=== PATIENT | female | born 1955 | race Caucasian/White ===

== ENCOUNTER 2018-03-19 02:19 | Outpatient (CLI) | payer BC, SELFPAY ==
--- NOTE | 2018-03-19 15:30 | DI.MAMMO_ITS ---
SYMPTOM/DIAGNOSIS: SCREENING, Z12.31 MAMMOGRAMS: Mammograms were interpreted according to the usual protocol including computer analysis with CAD system, tomosynthesis and C view imaging. Comparison is made with prior examinations. Breast density, category B. No suspicious masses or microcalcifications are seen. There is no definite evidence of malignancy. IMPRESSION: Negative mammogram. Routine screening is recommended. Category 1. MQSA ASSESSMENT OF FINDINGS: Negative. Category 1. Patient will receive a letter notifying them of these results. BI-RADS category B. There are scattered areas of fibroglandular density.
== END 2018-03-19 02:39 ==
PROVIDERS: PCP Family Medicine; Visit Provider Nurse Practitioner Family
DX: Z12.31 Encounter for screening mammogram for malignant neoplasm of breast (principal)
CPT/HCPCS: 77063; 77067

== ENCOUNTER 2018-06-04 10:01 | Day surgery (SDC) | payer BC, SELFPAY ==
--- NOTE | 2018-06-04 07:03 | W.COLOREPORT ---
Date of service: 06/04/18 Time of Service: 10:53 Colonoscopy Report Date of procedure: 06/04/18 Pre-op diagnosis general: Hx of colon Polyps Post-op diagnosis procedure note: other (ascending colon polyp) Procedure: Colonoscopy with polypectomy by cold forceps Surgeon: Demetra Perla Anesthesia proc note operative: other (General/ ASA 2/Rajiv Deluca, VANNESA) Estimated blood loss (mL): 3 Complications: None Disposition: same day Indications: Mrs. Weaver is a pleasant 63-year-old female who was seen in the office for a colonoscopy. 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 There is no family history of colon cancer. Risks, benefits and complications have been reviewed. Complications include but are not limited to bleeding, pain, perforation, missed small lesion/polyp, sore throat, aspiration and adverse reaction to the medications. Questions were entertained and answered to their satisfaction and they wished to proceed. No guarantees were given or implied. Prep: Miralax/Dulcolax Procedure Start Time: 10:53 Procedure End Time: 11:25 Retraction Time: 24 minutes Findings: Small sessile polyp <0.5 cm in the ascending colon Tattooed area noted. No polyp identified Procedure Description: After informed consent was obtained the patient was taken to the procedure room and placed in a left decubitous position. Monitors were applied and a time out was done. The patients name, date of , procedure, allergies to medications and metal in their body was reviewed. The patient was then sedated. Once sedated and comfortable a rectal exam was done. External exam was normal. Internal exam revealed a normal sphincter tone and no palpable masses. The scope was then introduced and retro-flexed. No internal hemorrhoids were identified. The scope was then advanced to the cecum without difficulty. The TI and appendiceal orifice were identified. The prep was good. The scope was then slowly retracted over 24 minutes back into the rectum. Polyps were removed in the ascending colon with cold forceps. The scope was removed and the patient was woken up and taken back to Same day surgery in stable condition. The patient tolerated the procedure well and there were no immediate complications. Follow up: The patient should follow up in 5 years unless they develop changes in bowel habits or other new gastrointestinal complaints.
--- NOTE | 2018-06-04 07:06 | W.PM.DSUDISC ---
Discharge Plan Disposition Patient Disposition: HOME Condition: Good Discharge Details Reason For Visit: Hx of polyps/ Colon Cancer screening Attending Provider: Demetra Perla Primary Care Provider: Charlie Graham Home Meds and New Rx's Prescriptions: Continued estradiol [Vagifem] 10 mcg tablet 10 mcg VG twice weekly Qty: 25 RF: 4 Discontinued polyethylene glycol 3350 17 gram/dose powder 238 g PO ONCE Qty: 238 RF: 0 bisacodyl [Dulcolax (bisacodyl)] 5 mg tablet,delayed release (DR/EC) 5 mg PO ONCE Qty: 4 RF: 0 Discharge Instructions Instructions: Colonoscopy (DC), Colorectal Polyps (DC) Additional Instructions: Findings: small ascending colon polyp Follow up: 5 years Please call if you develop: fevers >101.5 Nausea or Vomiting Abdominal pain that is not transient DAY SURGERY UNIT POST COLONOSCOPY INSTRUCTIONS 1. Because there will be medication in your system for the next 24 hours, you may feel a little sleepy. Your coordination will be affected. Therefore: a. Do not drive or operate dangerous equipment for 24 hours. b. Do not drink alcohol beverages for 24 hours (not even beer). c. Plan to go home and rest for the day. 2. Generally there are no restrictions on your activity after a day or so has gone by, but you may feel a bit fatigued for a few days. 3 After you arrive home you may have a light meal and return to a normal diet as you can tolerate it without feeling sick to your stomach. 4. After surgery, you may feel pain or discomfort. This should be only transient, but if it persists please contact your doctor. 5. If there are any questions regarding the findings of your procedure, please feel free to contact your doctor. 6. If you are unable to contact your doctor with a problem, contact the hospital at [phone]. 7. Continue all your regular medications unless directed otherwise. I understand the above instructions and have no questions. Signature of Patient or Responsible Adult Escort Date/Time Name of Responsible Adult Escort Signature of Nurse Date/Time Activity:: Activity as Tolerated Diet:: As Tolerated Discharge Orders Discharge Orders: Discharge Order (Routine); Ordered 06/04/18 Ordered By: Demetra Perla DS: Diagnosis Discharge Diagnosis (1) tubulovillous adenoma: Status: Acute (2) S/P colonoscopy: Status: Acute
[2018-06-04 10:14] VITALS: BP 127/87; PULSE 81; RESP 16; TEMP 35.9; O2SAT 97
[2018-06-04] MEDS: Lactated Ringers 1,000 ML 80 ML IV (10:44)
--- NOTE | 2018-06-04 11:05 | BOWEL_PTH ---
PATIENT: Zhanna Weaver LOC: [facility] U#:[id number] AGE/SX: 63/F ROOM: RE06/04/[address]: Demetra Perla MD : 1955 BED: DIS: 06/04/2018 SPEC #: [id number] RECD: 06/04/18 12:52 STATUS: MONALISA REQ #: [id number] CHELY: 06/04/18 11:[address]: Demetra Perla DEPT: Surgical Specimen RECD BY: Maryjane Fulton ENTERED: 06/04/18 12:52 SP TYPE: Bowel OTHR DR: Charlie Graham MD Tissues: 1 - BIOPSY BOWEL Procedures: GROSS AND MICRO LEVEL 4 Comments: [id number]
[2018-06-04 12:10] VITALS: BP 110/76; PULSE 71; RESP 16; TEMP 35.1; O2SAT 98
== END 2018-06-04 13:00 | disposition home or self-care (01) ==
LOC: SUR 10:02
PROVIDERS: PCP Family Medicine; Visit Provider Surgery
PROC: 0DJD8ZZ Inspection of Lower Intestinal Tract, Via Natural or Artificial Opening Endoscopic (ICD-10-PCS; CPT 45378; principal; 2018-06-04 10:45)
DX: Z12.11 Encounter for screening for malignant neoplasm of colon (principal); D12.6 Benign neoplasm of colon, unspecified; Z86.010 Personal history of colon polyps
CPT/HCPCS: 45380; 88305

== ENCOUNTER 2019-06-24 01:08 | Outpatient (CLI) | payer BC, SELFPAY ==
--- NOTE | 2019-06-24 13:00 | DI.MAMMO_ITS ---
EXAM: MG MAMMO SCREENING CLINICAL HISTORY: screening,z12.39 TECHNIQUE: Bilateral full field digital CC and MLO mammographic images were obtained with 3D tomosyn thesis and utilizing computer aided detection (CAD). COMPARISON: Available for comparison. FINDINGS: Masses/Architectural Distortion: None seen. Microcalcifications: No suspicious pleomorphic-type are seen. Skin Thickening/Nipple Retraction: None. IMPRESSION: 1. No significant interval change with no specific features of malignancy noted. 2. Unless there is more urgent need, screening mammography is recommended, as per [employer] guidelines. BI-RADS Category 1 - Negative Breast Density - Category B - Scattered areas of fibroglandular density A negative radiographic report should not delay biopsy if a dominant or clinically suspicious mass is present. Up to ten percent of cancers are not identified on mammography. A negative report may reinforce clinical impression. Adenosis and dense breasts may obscure an underlying neoplasm. False positive reports average 6 to 10%. Patient will receive a letter notifying them of these results.
== END 2019-06-24 01:28 ==
PROVIDERS: PCP Family Medicine; Visit Provider Nurse Practitioner Family
DX: Z12.31 Encounter for screening mammogram for malignant neoplasm of breast (principal)
CPT/HCPCS: 77063; 77067

== ENCOUNTER 2020-01-20 03:41 | Outpatient (CLI) | payer BC, SELFPAY ==
[2020-01-20 12:43] LABS: Hemoglobin A1C 5.3 % (<5.7)
[2020-01-20 12:44] LABS: Calculated LDL 162 mg/dL (<100); Cholesterol 251 mg/dL (<200); HDL Cholesterol 79 mg/dL (40-60); Triglyceride 52 mg/dL (<150)
== END 2020-01-20 04:01 ==
PROVIDERS: PCP Nurse Practitioner Family; Visit Provider Nurse Practitioner Family
DX: Z13.220 Encounter for screening for lipoid disorders (principal); Z13.1 Encounter for screening for diabetes mellitus
CPT/HCPCS: 36415; 80061; 83036

== ENCOUNTER 2020-03-23 15:59 | Outpatient (REF) | payer BC, SELFPAY ==
--- NOTE | 2020-03-23 15:00 | PAPFT_PTH ---
PATIENT: Zhanna Weaver LOC: [facility] U#:[id number] AGE/SX: 64/F ROOM: RE03/23/[address]: JEREMY Montes : 1955 BED: DIS: 03/23/2020 SPEC #: [id number] RECD: 03/23/20 17:58 STATUS: MONALISA REQ #: [id number] CHELY: 03/23/20 15:[address]: Mary Grace Ji DEPT: [facility] Cytology RECD BY: Maryjane Fulton ENTERED: 03/23/20 17:58 SP TYPE: PAPFT ALICIA DR: Antolin Hutchins, JEFF Tissues: 1 - CX/ENDOCX FOR PAP SMEARS Procedures: PAP THIN PREP/UVM Screening HPV DNA PROBE Comments: [id number]
== END 2020-03-23 16:00 | disposition home or self-care (01) ==
LOC: LBN 15:59
PROVIDERS: PCP Nurse Practitioner Family; Visit Provider Nurse Practitioner Family
DX: Z12.4 Encounter for screening for malignant neoplasm of cervix (principal); Z11.51 Encounter for screening for human papillomavirus (HPV)
CPT/HCPCS: 88142; 87624

== ENCOUNTER 2020-05-08 03:59 | Outpatient (CLI) | payer BC, SELFPAY ==
--- NOTE | 2020-05-08 | DI.MRI_ITS ---
EXAM: MR IAC BRAIN WO/W CLINICAL HISTORY: H90.5,ASYMMETRICAL HEARING LOSS TECHNIQUE: MR examination of the brain was performed according to the usual protocol with additiona l multiplanar high-resolution pre and post contrast imaging the posterior fossa. Whole brain axial T 1 weighted imaging was also obtained post contrast. COMPARISON: No exams were available for comparison FINDINGS: The ventricular system is normal in appearance. There is no mass lesion or enhancing lesion in the b rain. No significant intracranial signal abnormality seen. Diffusion-weighted imaging shows no diffusion restriction to suggest cerebral infarction. Susceptibility weighted imaging shows no evidence of intracranial hemorrhage. The orbital and temporal bone structures appear intact. The pituitary appears intact. There is normal flow void in the hsefmq-dv-Fkvici vasculature. Imaging of the posterior fossa region shows no abnormality of the cerebellum or chan. The internal a uditory canals and inner and middle ear structures appear normal. There is no mass lesion or enhanci ng lesion. IMPRESSION: Negative brain MRI with attention to the posterior fossa structures as described above. No mass lesi on or enhancing lesion. RADIATION DOSE DELIVERED: Total DLP
[2020-05-08 13:55] LABS: CREATININE 0.6 mg/dL (0.55-1.02)
[2020-05-08] MEDS: Normal Saline Flush 10 ML SYR IVP (14:05)
[2020-05-08] MEDS: Gadoterate meglumine 20 ML VIAL 18 ML IVP (14:05)
== END 2020-05-08 04:19 ==
PROVIDERS: PCP Nurse Practitioner Family; Visit Provider Otolaryngology
DX: H91.91 Unspecified hearing loss, right ear (principal)
CPT/HCPCS: 70553; 82565

== ENCOUNTER 2020-06-25 01:55 | Outpatient (CLI) | payer BC, SELFPAY ==
--- NOTE | 2020-06-25 15:06 | DI.MAMMO_ITS ---
Exam(s) MAMMO SCREENING EXAM: MAMMO SCREENING CLINICAL HISTORY: screening, Z12.39. TECHNIQUE: Bilateral full field digital CC and MLO mammographic images were obtained with 3D tomosyn thesis and utilizing computer aided detection (CAD). COMPARISON: Prior mammograms dating back to 2011, the most recent being June 2019. FINDINGS: There are no new significant radiograph findings in the right breast. Benign microcalcifications posteriorly in left breast are unchanged prior studies. Anteriorly at 12 o'clock position left breast there is a well-defined slightly lobulated 7 by 4 margo meter nodular density best seen on 3D MLO imaging. This is unchanged from prior mammograms dating ba to 2015 and therefore most probably benign. There are no malignant-appearing microcalcification groups is region or elsewhere in either breast. There is no significant architectural distortion nor skin thickening-retraction. IMPRESSION: 1. No radiographic evidence of malignancy in the right breast. 2. Central 12 o'clock position benign-appearing nodule left breast as described above. Ultrasound re commended to determine if this is solid or cystic BI-RADS Category 0 - Assessment Incomplete: Need additional imaging evaluation Breast Density - Category B - Scattered areas of fibroglandular density Breast density Category C or D implies that the patient has dense breast tissue. Dense breast tissue can make it harder to find cancer on a mammogram. Dense breast tissue is also associated with an incr eased risk of breast cancer. This information about the result of the mammogram report was provided to the patient to raise their awareness. Use this report when you speak with the patient about their risks for breast cancer, which includes their family history. At that time, you may recommend additional screening tests (Ultrasoun d or MRI) as these tests may add significant information. A negative radiographic report should not delay biopsy if a dominant or clinically suspicious mass is present. Up to ten percent of cancers are not identified on mammography. A negative report may reinforce clinical impression. Adenosis and dense breasts may obscure an underlying neoplasm. False positive reports average 6 to 10%. Patient will receive a letter notifying them of these results.
== END 2020-06-25 02:15 ==
PROVIDERS: PCP Nurse Practitioner Family; Visit Provider Nurse Practitioner Family
DX: Z12.31 Encounter for screening mammogram for malignant neoplasm of breast (principal)
CPT/HCPCS: 77063; 77067

== ENCOUNTER 2020-11-30 01:01 | Outpatient (CLI) | payer BC, SELFPAY ==
[2020-11-30 12:51] LABS: Calculated LDL 172 mg/dL (<100); Cholesterol 251 mg/dL (<200); HDL Cholesterol 69 mg/dL (40-60); TSH 2.11 uIU/mL (0.36-3.74); Triglyceride 51 mg/dL (<150)
== END 2020-11-30 01:02 | disposition home or self-care (01) ==
PROVIDERS: PCP Nurse Practitioner Family; Visit Provider Nurse Practitioner Family
DX: Z13.220 Encounter for screening for lipoid disorders (principal); Z13.29 Encounter for screening for other suspected endocrine disorder
CPT/HCPCS: 36415; 80061; 84443

== ENCOUNTER 2021-05-15 12:26 | Emergency (ER) | payer BC, SELFPAY ==
[2021-05-15 12:31] VITALS: BP 141/79; PULSE 90; RESP 18; TEMP 36.5; O2SAT 96
--- NOTE | 2021-05-15 12:45 | DI.RAD_ITS ---
Exam(s) XR HAND RT COMPLETE EXAM: XR HAND RT COMPLETE CLINICAL HISTORY: Laceration with glass, base of pinky, R/O FB TECHNIQUE: COMPARISON: No exams were available for comparison FINDINGS: Three views were obtained. No evidence of fracture or foreign body. IMPRESSION: RADIATION DOSE DELIVERED: Total DLP
--- NOTE | 2021-05-15 12:49 | ED.GENADUL_ITS ---
Discharge Plan Disposition Patient Disposition: HOME Condition: Stable Discharge Details Clinical Impression: Laceration of hand, right Primary Care Provider: Antolin Hutchins ED Provider: Wanda Ybarra Home Meds and New Rx's Prescriptions: Continued Metamucil (with sugar) 3.4 gram powder in packet 1 tbsp PO DAILY 0RF estradiol [Vagifem] 10 mcg tablet 10 mcg VG twice weekly Qty: 25 4RF Discharge Instructions Instructions: Laceration (ED) Additional Instructions: Keep clean and dry. Leave alone for the next 12 to 24 hours. Allowed to air dry 1 to 2 hours a day. No soaking. You may apply bacitracin or similar for the first day. Have sutures removed in 5 to 7 days. Be seen sooner for any signs of infection including increased redness, red streaks, drainage or concerns. Please try not to flex finger completely for the first few days. The numbing medication will begin to wear off in 1 to 2 hours. Follow up with primary care provider in 3-5 days. Return to ED sooner if any worsening or concerns. Increase oral fluids. Please take Tylenol or Ibuprofen with food every 4-6 hours as needed for pain and swelling. Referrals: Antolin Hutchins, [employer] [Primary Care Provider] - 2 weeks Discharge Data Discharge Date/Time-TO BE ENTERED AT DEPARTURE: 05/15/21 14:15 Medical Decision Making 66-year-old female presents to the ER with left hand laceration approximately which occurred approximately an hour prior to arrival while taking a bowl out of the cabinet. She reports full prep broken to cutting the lateral side of her right pinky on a glass bowl. She has full range of motion to her digits. Flexion extension is intact. She reports she is up-to-date on her tetanus vaccination. Let will be applied and x-ray imaging performed to rule out foreign body. Wound was irrigated by staff prior to my examination. We will plan to repair with sutures. Laceration was anesthetized and infiltrated with 1% lidocaine, patient tolerated well. Gross motor movement intact post infiltration. Anesthesia was achieved. Laceration was repaired with four-point 0 Ethilon suture 4 simple interrupted sutures placed. Wound was well approximated. I did offer a finger splint which patient declined at this time. Discussed home care with patient and daughter who verbalized understanding. Instructed to have sutures removed in 5 to 7 days. Strict return instructions discussed, verbalized understanding. HPI General Date/Time Provider Initiated Documentation: 05/15/21 12:42 . Limitations to Documentation: no limitations . Information obtained by: patient, RN notes reviewed and old records reviewed . HPI Narrative: 56-year-old female presents to the ER with chief complaint of right hand laceration which occurred approximately 1/2 hour prior to arrival on a glass bowl. She has full range of motion noted on exam. Denies any other injuries. She reports she is up-to-date on tetanus vaccination. Bleeding is controlled upon arrival. No other associated symptoms. Past medical history includes polyp of colon, , colonoscopy, tubulovillous adenoma patient is not on any blood thinners. Related Data Home Medications Medication Instructions Recorded Confirmed estradiol 10 mcg vaginal tablet 10 mcg VG twice weekly #25 tab 03/16/18 05/15/21 (Vagifem) psyllium husk (with sugar) 3.4 1 tbsp PO DAILY 03/23/20 11/20/20 gram oral powder packet (Metamucil (with sugar)) Previous Rx's Medication Instructions Recorded estradiol 10 mcg vaginal tablet 10 mcg VG twice weekly #25 tab 03/16/18 (Vagifem) Allergies Allergy/AdvReac Type Severity Reaction Status Date / Time phenylephrine AdvReac Severe N/V Verified 05/15/21 12:34 pseudoephedrine AdvReac Intermediate N/V Verified 05/15/21 12:34 General Stated Complaint: Laceration SAMUEL: 4 Review of Systems All systems reviewed & are unremarkable except as noted in HPI and below Integumentary/Breasts Skin/Breast: Reports wounds (Laceration Right hand) [facility] All Active Problems (Updated 05/15/21 @ 14:02 by Wanda Ybarra) Laceration of hand, right (Acute) Asymmetrical sensorineural hearing loss (Acute) S/P colonoscopy (Acute ~06/04/18) 2012-Tubulovillous adenoma Atrophic vaginitis (Acute 03/15/11) Medical History Polyp of colon 04/15 COLONOSCOPY: ONE TUBULOVILLOUS ADENOMA AND TWO TUBULAR ADENOMAS. 11/10/10 COLONOSCOPY; 1 T.A. 12/05/12 AWAITING PATH REPORT tubulovillous adenoma Surgical History section Colonoscopy - MAC 12/05/12 Ligation of fallopian tube Oophrectomy, Both (~2002) [facility] for cystic ovarian masses Family History Mother Heart disease Smoker Chronic obstructive lung disease Father Personal history of malignant neoplasm bone Sister Smoker Chronic obstructive lung disease Sister No problems noted. Sister No problems noted. Sister No problems noted. Sister No problems noted. Brother Colon cancer Diabetes Brother No problems noted. Brother No problems noted. Brother No problems noted. Maternal Cousin Stomach cancer Social History Smoking/Tobacco Use Status: Never Second Hand Exposure: Yes Smoking risk assessment performed?: Yes Alcohol Intake: current Alcohol Intake frequency: a few times a week Alcohol type: beer, wine and hard liquor Drug use: Never Substance use type: does not use Do you feel safe at home: Yes Do you feel safe in your relationship?: Yes Exam Extrem Right upper extremity: hand Details: normal capillary refill, neuromotor exam normal, neurosensory exam normal, tendon exam normal, normal ROM of fingers and laceration ulnar aspect mid Details: irregular, flap, actively bleeding (Slow venous ooze, controlled with pressure), involving subcutaneous tissue and with motor nerve function intact; Negative for no pulsatile bleeding Hand/finger images: 1. Approximately 1 cm irregular laceration with a flap noted 2. Small superficial no bleeding noted. Course Vital Signs Vital signs: Vital Signs Temperature 36.5 C 05/15/21 12:31 Pulse 90 05/15/21 12:31 Respiratory Rate 18 05/15/21 12:31 Blood Pressure 141/79 H 05/15/21 12:31 Pulse Oximetry 96 05/15/21 12:31 Temperature 36.5 C 05/15/21 12:31 Temperature Source Temporal Artery Scan 05/15/21 12:31 Pulse 90 05/15/21 12:31 Respiratory Rate 18 05/15/21 12:31 Respiratory Effort Non-Labored 05/15/21 12:35 Blood Pressure 141/79 H 05/15/21 12:31 Blood Pressure Position Sitting 05/15/21 12:31 Pulse Oximetry 96 05/15/21 12:31 Oxygen Delivery Method Room Air 05/15/21 12:31 Oxygen Flow Rate 0 04/09/22 12:31 Procedures Laceration Laceration 1: Site: hand Side (If applicable): right Size (cm): 1.5 Description: flap, irregular and clean Depth: simple, single layer Local Anesthetic: Lidocaine 1% and with Epi Amount of anesthesia used (mL): 2 Pre-repair: wound explored, irrigated extensively and deep structures intact Skin layer closed with: nylon Size (cm): 4-0 Number of sutures: 4 Technique: simple, interrupted PAWSS Have you Been Recently Intoxicated or Drunk Within the Last 30 days?: No Have you Ever Experienced Previous Episodes of Alcohol Withdrawal?: No Have you ever Experienced Withdrawal Seizures?: No Have you ever Experienced Delirium Tremens(DT)s?: No Have you ever undergone Alcohol Rehabilitation Treatment (i.e, inpt ot outpatient treatment programs)?: No Have you ever Experienced Blackouts?: No Have you ever Combined Alcohol with other Downers within the last 90 days?: No Have you ever Combined Alcohol with any other Substance of Abuse during the last 90 days?: No Positive Blood Alcohol level on Presentation? [PCS.BAL]: No Evidence of Increased Autonomic Activity (i.e. HR>120, tremor, sweating, agitation, nausea)?: No Result: 0
[2021-05-15] MEDS: Lidocaine/Epinephri/Tetracaine Topical Gel 3 ML TP (13:07)
--- NOTE | 2021-05-15 13:45 | DI.VRAD_ITS ---
PROCEDURE INFORMATION: Exam: XR Right Hand Exam date and time: 05/15/2021 1:14 PM Age: 66 years old Clinical indication: Injury or trauma; Other: Laceration with glass, base of pinky, R/O fb; Hand; Right TECHNIQUE: Imaging protocol: XR Right hand. Views: 3 or more views. COMPARISON: No relevant prior studies available. FINDINGS: Bones/joints: There is no evidence of acute fracture.There is no evidence of malalignment or dislocation. Soft tissues: No foreign body seen in the soft tissues . IMPRESSION: 1. No foreign body seen in the soft tissues . 2. There is no evidence of acute fracture.There is no evidence of malalignment or dislocation. Dictated and Authenticated by: Arvin Montesinos MD. Ordering:MELLO Muñoz MD
--- NOTE | 2021-05-15 14:16 | NUR.NOTE ---
dry dressing application. Laceration site cleaned, Bacitracin, telfa dressing and wrapped with curlex, CLB.
== END 2021-05-15 14:15 | disposition home or self-care (01) ==
PROVIDERS: Emergency Provider Registered Nurse Emergency; PCP Nurse Practitioner Family
DX: S61.411A Laceration without foreign body of right hand, initial encounter (principal); W25.XXXA Contact with sharp glass, initial encounter
CPT/HCPCS: 12001; 99283; 73130

== ENCOUNTER 2022-04-14 01:28 | Outpatient (CLI) | payer BC, SELFPAY ==
--- NOTE | 2022-04-14 15:45 | DI.MAMMO_ITS ---
Exam(s) MAMMO SCREENING EXAM: MAMMO SCREENING CLINICAL HISTORY: screening TECHNIQUE: Mammograms were interpreted according to the usual protocol including computer analysis w [employer] CAD system, tomosynthesis and C-view imaging. COMPARISON: 2013 through 2020 FINDINGS: The breasts are composed of scattered fibroglandular densities, Breast Density category B. No suspicious masses or suspicious microcalcifications are seen. No skin thickening or abnormal axillary lymph nodes are seen. There has been no significant change from prior exams. IMPRESSION: BI-RADS Category 1, Negative mammogram Yearly screening mammography is recommended. Breast Density - Category B, scattered fibroglandular densities. A negative radiographic report should not delay biopsy if a dominant or clinically suspicious mass is present. Up to ten percent of cancers are not identified on mammography. A negative report may reinforce clinical impression. Adenosis and dense breasts may obscure an underlying neoplasm. False positive reports average 6 to 10%. Patient will receive a letter notifying them of these results.
== END 2022-04-14 01:48 ==
LOC: DI 01:28
PROVIDERS: PCP Nurse Practitioner Family; Visit Provider Nurse Practitioner Women's Health
DX: Z12.31 Encounter for screening mammogram for malignant neoplasm of breast (principal); R92.8 Other abnormal and inconclusive findings on diagnostic imaging of breast
CPT/HCPCS: 77063; 77067

== ENCOUNTER 2022-12-06 02:42 | Outpatient (CLI) | payer MEDICARE, BC, SELFPAY ==
[2022-12-06 12:42] LABS: Calculated LDL 184 mg/dL (<100); Cholesterol 281 mg/dL (<200); HDL Cholesterol 83 mg/dL (40-60); Triglyceride 72 mg/dL (<150)
== END 2022-12-06 02:43 | disposition home or self-care (01) ==
PROVIDERS: PCP Nurse Practitioner Family; Visit Provider Nurse Practitioner Family
DX: E78.5 Hyperlipidemia, unspecified (principal)
CPT/HCPCS: 36415; 80061

== ENCOUNTER 2023-04-24 09:59 | Outpatient (CLI) | payer MEDICARE, BC, SELFPAY ==
[2023-04-24 12:31] LABS: HCT 41.7 % (36.0-46.0); HGB 13.8 g/dL (11.2-15.7); MCH 29.6 pg (27.0-33.0); MCHC 33.1 % (32.0-36.0); MCV 89 fL (80-95); MPV 8.8 fL (8.0-11.0); Platelet Count 259 10^3/uL (130-400); RBC 4.67 10^6/uL (3.93-5.22); RDW 12.1 % (11.7-14.6); RDW-SD 39.9 fL; WBC 6.89 10^3/uL (4.4-10.8)
[2023-04-24 12:51] LABS: TSH (W/Ref FT4) 1.59 uIU/mL (0.36-3.74)
== END 2023-04-24 10:00 | disposition home or self-care (01) ==
LOC: LOS 10:04
PROVIDERS: PCP Nurse Practitioner Family; Visit Provider Nurse Practitioner Women's Health
DX: L65.9 Nonscarring hair loss, unspecified (principal)
CPT/HCPCS: 36415; 85027; 84443

== ENCOUNTER → 2023-05-30 02:38 | Outpatient (CLI) | payer MEDICARE, BC, SELFPAY ==
--- NOTE | 2023-05-30 06:45 | DI.MAMMO_ITS ---
Exam(s) MAMMO SCREENING EXAM: MAMMO SCREENING CLINICAL HISTORY: screening,Z12.39. TECHNIQUE: Bilateral full field digital CC and MLO mammographic images were obtained with 3D tomosyn thesis and utilizing computer aided detection (CAD). COMPARISON: Prior mammograms were reviewed. FINDINGS: There has been no significant change in the appearance and distribution of the fibroglandular tissue. There are no CAD designations. There are no new spiculated masses nor malignant appearing microcalcification groups. Small benign-appearing nodule located laterally in the right breast is unchanged and has appearance p robable benign lymph node. There is no significant architectural distortion nor skin thickening-retraction. IMPRESSION: No radiographic evidence of malignancy. Stable benign findings. BI-RADS Category 2 - Benign Findings Breast Density - Category B - Scattered areas of fibroglandular density Breast density Category C or D implies that the patient has dense breast tissue. Dense breast tissue can make it harder to find cancer on a mammogram. Dense breast tissue is also associated with an incr eased risk of breast cancer. This information about the result of the mammogram report was provided to the patient to raise their awareness. Use this report when you speak with the patient about their risks for breast cancer, which includes their family history. At that time, you may recommend additional screening tests (Ultrasoun d or MRI) as these tests may add significant information. A negative radiographic report should not delay biopsy if a dominant or clinically suspicious mass is present. Up to ten percent of cancers are not identified on mammography. A negative report may reinforce clinical impression. Adenosis and dense breasts may obscure an underlying neoplasm. False positive reports average 6 to 10%. Patient will receive a letter notifying them of these results.
== END ==
PROVIDERS: PCP Nurse Practitioner Family; Visit Provider Nurse Practitioner Family
DX: Z12.31 Encounter for screening mammogram for malignant neoplasm of breast (principal)
CPT/HCPCS: 77063; 77067

== ENCOUNTER → 2023-08-31 08:10 | Outpatient (BNVA) | payer MEDICARE, BC, SELFPAY | PROVIDERS: PCP Nurse Practitioner Family; Referring Provider Nurse Practitioner Family; Visit Provider Physical Therapy Assistant | DX: Z12.11 Encounter for screening for malignant neoplasm of colon (principal); Z86.010 Personal history of colon polyps; Z80.0 Family history of malignant neoplasm of digestive organs ==

== ENCOUNTER 2023-09-22 06:09 | Day surgery (SDC) | payer MEDICARE, BC, SELFPAY ==
--- NOTE | 2023-09-21 11:59 | W.COLOREPORT ---
Date of service: 09/22/23 Time of Service: 08:17 Colonoscopy Report Date of procedure: 09/22/23 Pre-op diagnosis general: Brother CRC/adenomatous polyps Post-op diagnosis procedure note: same (polyps ) Surgeon: Frannie Booker Anesthesia Type: General:No Airway Estimated blood loss (mL): 1 Pathology: other Complications: None Disposition: same day Prep: Miralax/Dulcolax Retraction Time: 11 Procedure Description: After informed consent was obtained, explaining risks of the procedure, including but not limits to: bleeding, infections, complications of anesthesia, perforations (which may require antibiotics and /or surgery and stay in the hospital), and abdominal pain/cramping. The patient was taken to the procedure room and placed in a left decubitous position. Monitors were applied and a time out was done. The patients name, date of , procedure, allergies to medications and metal in their body was reviewed. The patient was then sedated. Once sedated and comfortable a rectal exam was done. External exam: Hemorrhoidal tags. Internal exam revealed a normal sphincter tone and no palpable masses. The previously lubricated Olympus scope was then introduced (see RN notes for scope number) and retrofelexed. No internal hemorrhoids were identified. The scope was then advanced to the cecum without difficulty. The TI and appendiceal orifice were identified. The scope was then slowly retracted over 11 minutes back into the rectum. Polyps: A flat, .5cm polyp was found at 20cm. This was removed with a cold biting forceps. All of the specimen was retrieved. This will be sent to pathology. There is no bleeding noted from the polypectomy site. . Diverticula: No. The mucosa is pink and healthy w/ a normal vascular pattern. The scope was removed, and the patient was woken up and taken back to Same day surgery in stable condition. The patient tolerated the procedure well and there were no immediate complications. Follow up: The patient should follow up in years, unless they develop changes in bowel habits or other new gastrointestinal complaints. Pointblank Bowel Prep Pointblank Bowel Prep Right Colon: 3 Left Colon: 3 Transverse Colon: 3 Total Score: 9
--- NOTE | 2023-09-21 12:10 | PDOC.DSDIS_ITS ---
Date of service: 09/22/23 Time of Service: 08:24 Discharge Plan Disposition Patient Disposition: Home Condition: Good Discharge Details Reason For Visit: Colon scope Attending Provider: Frannie Booker Primary Care Provider: Antolin Hutchins Home Meds and New Rx's Prescriptions: Continued estradiol 10 mcg tablet 10 mcg vaginal .three times weekly Qty: 36 4RF Rx Instructions: Insert one tab, vaginally, three times a week Discontinued bisacodyl [Dulcolax (bisacodyl)] 5 mg tablet,delayed release (DR/EC) 5 mg PO ONCE Qty: 4 0RF Rx Instructions: Take per colonoscopy instructions provided by ordering providers office polyethylene glycol 3350 17 gram/dose powder 17 g PO ONCE Qty: 238 0RF Rx Instructions: Take per colonoscopy instructions provided by ordering providers office Discharge Instructions Additional Instructions: DSU Colonoscopy Post- Op Instructions Instructions for Everyone who is given Anesthesia: For your safety, please do the following for the next twenty-four (24) hours: *Do Not operate a motor vehicle (car, truck, motorcycle, etc.) *Do Not drink alcoholic beverages or use any recreational drugs for the first 24 hours or while taking pain medications. The medications in your body may have a reaction that can be dangerous. *Do Not make any important decisions or sign any important papers. Findings: Adenomatous polyps Follow up: 5 years 1. No lifting over 20 pounds or strenuous activity for the first 24 hours after your procedure. After 24 hours there are no restrictions on your activity but you may feel fatigued for a few days. 2. After you arrive home you may have a light meal and return to your normal diet as you can tolerate it without feeling sick to your stomach. 3. You may have a bloated, gaseous feeling in your belly (abdomen) after a colonoscopy. Passing gas and belching will help. Walking or lying down on your left side with your knees flexed may relieve the discomfort. Call the office at [phone] (Office) or [phone] (Hospital) right away if you notice any of the following: a.Vomiting of blood or ?coffee ground stools?. b.Rectal bleeding 1Tbsp, blood clots or continuous bleeding. c.Severe belly (abdominal) pain. d.A hard distended belly (abdomen) and an inability to pass gas. 4. Please don?t expect to have a normal BM (bowel movement) for 2-3 days after your procedure. 5. If there are questions regarding the findings of your procedure, please contact your doctor 6. If you are unable to contact your doctor with a problem, contact the hospital at [phone]. 7. Continue all your regular medications unless directed otherwise. I understand the above instructions and have no questions. Signature of Patient or Adult Escort Name of Responsible Adult Escort Signature of Nurse Date/Time Activity:: See above Diet:: See above Discharge Orders Discharge Orders: Discharge Order (Routine); Ordered 09/21/23 Ordered By: Frannie Booker DS: Diagnosis Discharge Diagnosis (1) Asymmetrical sensorineural hearing loss: Status: Acute (2) tubulovillous adenoma: Asessment and Plan: The patient is seen and examined after their colonoscopy.? The patient has been able to pass gas.? They are not having abdominal pain.? They have been able to tolerate liquids and a snack.? They do not have any nausea or vomiting.? They are not having any chest pain or shortness of breath.??? They are not having any rectal bleeding. Their vital signs have been stable-see nursing notes. We discussed findings during their colonoscopy, and any biopsies that were done/polyps that were removed. The patient will be sent a letter with any biopsy results, and when to repeat the colonoscopy.-see discharge instructions. Patient was given explicit instructions to follow-up regarding colonoscopy-refer to discharge instructions.? We reviewed resumption of medications. Patient verbalized understanding and discharged in stable and satisfactory condition- See nursing notes. (3) Family history of malignant neoplasm of colon in first degree relative diagn osed when younger than 60 years of age: Status: Acute
--- OUTSIDE RECORDS SUMMARY | 2023-09-22 06:10 | XMS_ITS | Encounter Summary ---
Author Organization [facility] Address [facility] [place] [address] Care Team Providers Care Apple Picker Name Role Phone Antolin Hutchins KAYLA Primary Care Provider [phone] Encounter Details Date Type Department Care Team (Late st Contact Info) Description 08/01/2023 Telephone Dermatology at [facility] [address] [place] [address] Leonila Hills MD [facility] [address] [place] [address] Social History Tobacco Use Types Packs/Day Years Used Date Smoking Tobacco: Never Smokeless Tobacco: Never Sex and Gender Information Value Date Recorded Sex Assigned at Not on file Gender Identity Not on file Sexual Orientation Not on file documented as of this encounter Miscellaneous Notes * Telephone Encounter - Lo Gee - 08/01/2023 10:13 AM EDT Returned call to Zhanna. Left voicemail with my direct callback number. documented in this encounter Plan of Treatment Upcoming Encounters Date Type Department Care Team (Late st Contact Info) Description 09/10/2024 11:00 AM EDT Office Visit Dermatology at [facility] [address] [place] [address] Leonila Hills MD [facility] [address] [place] [address] documented as of this encounter Visit Diagnoses Not on filedocumented in this encounter Care Teams Apple Picker Relationship Specialty Start Date End Date Antolin Hutchins APRN [address] [place] [address] PCP - General Family Medicine 04/20/20 documented as of this encounter
--- OUTSIDE RECORDS SUMMARY | 2023-09-22 06:10 | XMS_ITS | Clinical Summary ---
Author Organization Replaced By [facility] Address [facility] [place] [address] Care Team Providers Care Caterers Helper Name Role Phone CuongAmberapple Cao APRN Primary Care Provider [phone] Allergies No known active allergies Medications Medication Sig Dispensed Refills Start Date End Date Status estradioL (VAGIFEM) [address] vaginally. 03/16/2018 Activ e clindamycin (CLINDAGEL) 1 % GelIndications:Acne vulgaris Apply topically to the face twice daily acne for flares 30 g 04/23/2021 Active Additional Information Patient not taking.Reported on 04/27/2022 triamcinolone (Kenalog) 0.1 % OintmentIndications: Eczema, unspecified type Apply topically 2 times daily. 30 g 04/27/2022 Active Active Problems No known active problems Encounters Date Type Department Care Team Description 09/05/2023 11:00 AM EDT Office Visit Dermatology at [facility] [address] [place] [address] Leonila Hills MD Inflamed seborrheic keratosis; History of nonmelanoma skin cancer; AK (actinic keratosis); SK (seborrheic keratosis); Tinea pedis, unspecified laterality 09/05/2023 Travel 08/01/2023 Telephone Dermatology at [facility] [address] [place] [id number] Leonila Hills MD from Last 3 Months Immunizations Name Administration Dates Next Due Hepatitis B Unspecified Formulation 11/20/2003,0 10/21/2003 Family History Medical History Relation Comments Skin Cancer Father Actinic Keratosi s Relation Status Comments Father Social History Tobacco Use Types Packs/Day Years Used Date Smoking Tobacco: Never Smokeless Tobacco: Never Sex and Gender Information Value Date Recorded Sex Assigned at Not on file Gender Identity Not on file Sexual Orientation Not on file Last Filed Vital Signs Vital Sign Reading Time Taken Comments Blood Pressure 149/78 05/24/2022 9:45 AM EDT Pulse 77 05/24/2022 9:45 AM EDT Temperature - - Respiratory Rate - - Oxygen Saturation - - Inhaled Oxygen Concentration - - Weight - - Height - - Body Mass Index - - Plan of Treatment Upcoming Encounters Date Type Department Care Team (Late st Contact Info) Description 09/10/2024 11:00 AM EDT Office Visit Dermatology at [facility] [address] [place] [address] Leonila Hills MD [facility] [address] [place] [address] Health Maintenance Due Date Last Done Comments CT Colonography 1955 Colonoscopy 1955 Colorectal Cancer Screening 1955 FIT DNA 1955 FIT 1955 Sigmoidoscopy (10 year) with FIT yearly 1955 Sigmoidoscopy 1955 Hepatitis C Screening 04/10/1973 Tdap adult 04/10/1974 Tetanus vaccine 04/10/1974 Breast Cancer Share Decision Needed 1995 Breast Cancer screening 1995 Zoster vaccine (1 of 2) 04/10/2005 Advance Directive 04/10/2010 Bone Density Scan 04/10/2020 Pneumoccocal Vaccine: 65+ (1 of 1 - PCV) 04/10/2020 Covid-19 Vaccine ( - 2022-24 season) 2022 Influenza (Flu) vaccine (1 o f 1 - Influenza standard series) 10/08/2023 Care Teams Caterers Helper Relationship Specialty Start Date End Date Antolin Hutchins APRN [address] [place] [address] PCP - General Family Medicine 04/20/20
--- OUTSIDE RECORDS SUMMARY | 2023-09-22 06:10 | XMS_ITS | Encounter Summary ---
Author Organization [facility] Address [address] [place] [address] Care Team Providers Care Miter Cutter Name Role Phone Chris Griffin MD Primary Care Provider [phone] Encounter Details Date Type Department Care Team (Late st Contact Info) Description 12/26/2016 Results Only [facility] [phone] Mary Grace Ji, [facility] [address] [place] [address] Social History Tobacco Use Types Packs/Day Years Used Date Smoking Tobacco: Never Assessed Sex and Gender Information Value Date Recorded Sex Assigned at Not on file Gender Identity Not on file Sexual Orientation Not on file documented as of this encounter Plan of Treatment Not on file documented as of this encounter Procedures Procedure Name Priority Date/Time Associated Diagnosis Comments PAP TEST- RESULT ONLY Routine 12/26/2016 0:00 EST documented in this encounter Results * PAP TEST- RESULT ONLY (12/26/2016 0:00 EST) Pathology Report: CYTOPATHOLOGY REPORT Reports generated via electronic interface contain original data; however they are lacking the format of the original report. Caution should be taken when reading/interpreti ng unformatted reports. Name: ? ZHANNA YAN ? Accession #: ? [id number] ? : ? 1955 (Age: 61) ??F ?Collect Date: ? 12/26/2016 ? Location: ? [facility] ? Receive Date: ? 12/27/2016 ? Provider: MARY GRACE JI LOKIE DRIVER Copy to: CHRIS GRIFFIN MD ? Final Report SPECIMEN ADEQUACY ? Satisfactory for Evaluation - transformation zone component absent GENERAL CATEGORIZATION ? Negative for Intraepithelial Lesion or Malignancy ?? Last Menstrual Period: 2002 Hormonal/Contracep tive status: Estrogen: vaginal Other: Stenotic os Specimen/Source: ??Pap Test, Cervix, ThinPrep Imaging System with manual evaluation Document reviewed and electronically signed by: ? Kimberly Redding, [facility](ASCP) ? Report ??Date: 01/06/2017 11:30 HPV with Pap Test ? Date Ordered: ? 01/06/2017 ? Status: ?? Signed Out ?Date Complete: ? 01/09/2017 ? By: ??System Interface ? Date Reported: ? 01/09/2017 ? Interpretation RESULT: Negative for HPV. No E6 or E7 mRNA is detected from HPV types 16,18,31,33,35, 39,45,51,52,56,58, 59,66, and 68 by forensic identification specialist mediated amplification. Comments Document reviewed and electronically signed by: ? System Interface ? Report date: 01/09/2017 By the signature above, the attending physician certifies that he/she has personally conducted a gross and/or microscopic examination of the described specimens and rendered or confirmed the above diagnosis. End of Report [facility] 12/26/2016 12/27/2016 Mary Grace Ji LOKIE DRIVER PATHOLOGY ORDERABLES [facility] [address] [place] [address] documented in this encounter Visit Diagnoses Not on filedocumented in this encounter Care Teams Miter Cutter Relationship Specialty Start Date End Date Chris Griffin MD PCP - General 12/10/12 documented as of this encounter
--- OUTSIDE RECORDS SUMMARY | 2023-09-22 06:10 | XMS_ITS | Encounter Summary ---
Author Organization [facility] Address [address] [place] [address] Care Team Providers Care Hides Soaker Name Role Phone Unavailable Primary Care Provider Unavailabl e Encounter Details Date Type Department Care Team (Late st Contact Info) Description 01/17/2008 Before PRISM Converted Visit (Maple) [facility] - Maple conversion [address] [place] [address] Mary Grace Ji, [facility] [address] [place] [address] [place] [address] Social History Tobacco Use Types Packs/Day Years Used Date Smoking Tobacco: Never Assessed Sex and Gender Information Value Date Recorded Sex Assigned at Not on file Gender Identity Not on file Sexual Orientation Not on file documented as of this encounter Plan of Treatment Not on file documented as of this encounter Procedures Procedure Name Priority Date/Time Associated Diagnosis Comments CYTOPATHOLOGY Routine 01/17/2008 0:00 EST documented in this encounter Results * CYTOPATHOLOGY (01/17/2008 0:00 EST) Pathology Report: CYTOPATHOLOGY REPORT ? Reports generated via electronic interface contain original data; ? however they are lacking the format of the original report. ? Caution should be taken when reading/interpreti ng unformatted reports. ? Name: ? ZHANNA YAN ? Accession #: ? [id number] ? : ? 1955 (Age: 52) ??F ?Collect Date: ? 01/17/2008 ? Location: ? [facility] ? Receive Date: ? 01/18/2008 ? Provider: ?MARY GRACE DASH OPERATION RESEARCH ANALYST ? Copy to: ? Specimen/Source: ?Pap Test, Cervix/Endocervix, ThinPrep Imaging System ? with manual evaluation ? Last Menstrual Period: ? Previous Gynecologic Pathology: ? ASC-US: 3/98 ? Benign cellular changes: 2000 ? Treatment History: ? Miscellaneous treatment: BSO 2003 ? Other: ? HPVA - HPV testing requested if ASC-US on the current ThinPrep Pap test. ? SPECIMEN ADEQUACY ? Unsatisfactory for Evaluation ? - obscuring contamination, possibly lubricant, which precludes interpretation of 75% or more of the epithelial cells ? GENERAL CATEGORIZATION ? Specimen processed and examined, but unsatisfactory for evaluation of ? epithelial abnormality. ? Recommend repeat Pap test or further follow up, as clinically indicated. ? Document reviewed and electronically signed by: ? Rigo Mariano, [place](ASCP) ? Report Date: ??01/23/2008 10:35 ? End of Report ? [facility] 01/17/2008 01/18/2008 Mary Grace Ji OPERATION RESEARCH ANALYST PATHOLOGY ORDERABLES Performing Organization Address City/State/[facility] Co de Phone Number [facility] [address] [phone] documented in this encounter Visit Diagnoses Not on filedocumented in this encounter
--- OUTSIDE RECORDS SUMMARY | 2023-09-22 06:10 | XMS_ITS | Encounter Summary ---
Author Organization [facility] Address [address] [place] [address] Care Team Providers Care Associate Professor Of Management Name Role Phone Unavailable Primary Care Provider Unavailabl e Encounter Details Date Type Department Care Team (Late st Contact Info) Description 02/17/2009 Orders Only [facility] - [facility] [place] [place] [address] [place], [place] [address] Mary Grace Ji, [facility] [address] [place] [address] [place] [address] Social History Tobacco Use Types [...] Priority Date/Time Associated Diagnosis Comments CYTOPATHOLOGY Routine 02/17/2009 0:00 EST documented in this encounter Results * CYTOPATHOLOGY (02/17/2009 0:00 EST) Pathology Report: CYTOPATHOLOGY REPORT ? Reports generated via electronic interface contain original data; ? however they are lacking the format of the original report. ? Caution should be taken when reading/interpreti ng unformatted reports. ? Name: ? ZHANNA YAN ? Accession #: ? [id number] ? : ? 1955 (Age: 53) ??F ?Collect Date: ? 02/17/2009 ? Location: ? [facility] ? Receive Date: ? 02/18/2009 ? Provider: ?MARY GRACE DASH PRODUCT APPLICATIONS ENGINEER ? Copy to: ? Specimen/Source: ?Pap Test, Cervix/Endocervix, ThinPrep Imaging System ? with manual evaluation ? Last Menstrual Period: ? 2003 ? Other: ? HPVA - HPV testing requested if ASC-US on the current ThinPrep Pap test. ? SPECIMEN ADEQUACY ? Satisfactory for Evaluation ? - transformation zone component present ? GENERAL CATEGORIZATION ? Negative for Intraepithelial Lesion or Malignancy ? Document reviewed and electronically signed by: ? Lynan Reynold, [place](ASCP) ? Report Date: ??02/20/2009 15:25 ? End of Report ? [facility] 02/17/2009 02/18/2009 Mary Grace Ji PRODUCT APPLICATIONS ENGINEER PATHOLOGY ORDERABLES [facility] [address] [place] [address] documented in this encounter Visit Diagnoses Not on filedocumented in this encounter
--- OUTSIDE RECORDS SUMMARY | 2023-09-22 06:10 | XMS_ITS | Encounter Summary ---
Author Organization [facility] Address [address] [place] [address] Care Team Providers Care Laser Set Up Operator Name Role Phone Chris Griffin MD Primary Care Provider [phone] Encounter Details Date Type Department Care Team (Late st Contact Info) Description 09/12/2013 Results Only [facility] Laboratory Services - [facility] [place] [place] [address] [place], [place] [phone] Mary Grace Ji, [facility] [address] [place] [address] Social History Tobacco Use Types [...] Diagnosis Comments PAP TEST- RESULT ONLY Routine 09/12/2013 0:00 EDT documented in this encounter Results * PAP TEST- RESULT ONLY (09/12/2013 0:00 EDT) Pathology Report: CYTOPATHOLOGY REPORT Reports generated via electronic interface contain original data; however they are lacking the format of the original report. Caution should be taken when reading/interpreti ng unformatted reports. Name: ? ZHANNA YAN ? Accession #: ? [id number] ? : ? 1955 (Age: 58) ??F ?Collect Date: ? 09/12/2013 ? Location: ? [facility] ? Receive Date: ? 09/13/2013 ? Provider: MARY GRACE JI [facility] Copy to: CHRIS GRIFFIN MD ? Final Report SPECIMEN ADEQUACY ? Satisfactory for Evaluation - transformation zone component present GENERAL CATEGORIZATION ? Negative for Intraepithelial Lesion or Malignancy ?? Last Menstrual Period: 2002 Treatment History: Miscellaneous treatment: S/p bilateral Oophorectomy Specimen/Source: ??Pap Test, Cervix/Endocervix, ThinPrep Imaging System with manual evaluation Document reviewed and electronically signed by: ? HERRERA Marshall(ASCP) ? Report ??Date: 09/18/2013 13:01 HPV with Pap Test ? Date Ordered: ? 09/18/2013 ? Status: ?? Signed Out ?Date Complete: ? 09/20/2013 ? By: ??System Interface ? Date Reported: ? 09/20/2013 ? Interpretation RESULT: Negative for HPV. No E6 or E7 mRNA is detected from HPV types 16,18,31,33,35, 39,45,51,52,56,58, 59,66, and 68 by lime mixer mediated amplification. Comments Document reviewed and electronically signed by: ? System Interface ? Report date: 09/20/2013 By the signature above, the attending physician certifies that he/she has personally conducted a gross and/or microscopic examination of the described specimens and rendered or confirmed the above diagnosis. End of Report [facility] 09/12/2013 09/13/2013 Mary Grace Ji WELT STITCHER PATHOLOGY ORDERABLES Performing Organization Address City/State/[facility] Co de Phone Number [facility] [address] [place] [address] documented in this encounter Visit Diagnoses Not on filedocumented in this encounter Care Teams Laser Set Up Operator Relationship Specialty Start Date End Date Chris Griffin MD PCP - General 12/10/12 documented as of this encounter
--- OUTSIDE RECORDS SUMMARY | 2023-09-22 06:10 | XMS_ITS | Encounter Summary ---
Author Organization [facility] Address [facility] [place] [address] Care Team Providers Care Grinding Machine Operator Automatic Name Role Phone CuongAntolin gage Kiley GARZA Primary Care Provider [phone] Reason for Visit * Reason Comments Skin Check Encounter Details Date Type Department Care Team (Late st Contact Info) Description 04/23/2021 9:15 AM EDT Office Visit Dermatology at [facility] [address] [place] [address] Leonila Hills MD [facility] [address] TATIA[address] [place] [address] History of basal cell carcinoma; Solar lentigo; Seborrheic keratosis; Trejo angioma; Multiple benign nevi; Actinic keratosis; Acne vulgaris Social History Tobacco Use Types Packs/Day Years Used Date Smoking Tobacco: Never Smokeless Tobacco: Never Sex and Gender Information Value Date Recorded Sex Assigned at Not on file Gender Identity Not on file Sexual Orientation Not on file documented as of this encounter Progress Notes * Leonila Michael MD - 04/23/2021 9:15 AM EDT Images from the original note were not included. DEPARTMENT OF DERMATOLOGY Medical Dermatology Clinic Provider: Leonila Michael MD Patient's preferred name Zhanna Preferred contact method for results [x]Phone []myD-H []Letter Detailed phone message OK? yes Are there any other people with whom we may discuss your care? Past Medical History Date, location, treatment Melanoma No Dysplastic nevi No SCC No BCC BCC on right waistline/ low back- excised 07/11/13 AKs Yes, cryotherapy UV Exposure & Protection N Other relevant past medical history Family History Details Melanoma No NMSC No Other relevant family history No Social History History of Present Illness: Zhanna Weaver is a 66 y.o. Patient returns to clinic today for a fullskin cancer screening: - Lesions on the forehead, present for 3-4 months, sirena Last visit at Dermatology: 04/20/2020 Medications: Reviewed in eD-H Allergies: Reviewed in eD-H Skin Examination: Full skin examination: Patient asked to undress to their comfort level. Verbalized that the provider???s preference is that the patient remove all clothing and that the provider will not examine areas patient elects to keep covered. Patient elects to keep bra and underwear on and have the following examined: scalp, hair, head, face, ears, neck, chest, axillae, abdomen, back, buttocks, and upper and lower extremities. Bra-covered area, genitalia, and buttocks were not examined. Assessment/Plan A. History of BCC - Well-healed scar on the right waistline/ low back per skin history. - No evidence of recurrence - Will continue to monitor. - Continue diligent sun protection B. Melanocytic Nevi -Multiple, 0.3-0.5cm, medium-brown, evenly-pigmented macules and papules. All with regular pigment pattern on dermoscopy. No pigmented lesions suspicious for melanoma. - Benign. No treatment necessary. - Reassured about benign nature and natural history. C. Trejo Angiomas -Multiple 0.2-0.4cm bright red, well-demarcated papules - Benign. No treatment necessary. - Reassured about benign nature and natural history. D. Seborrheic Keratoses -Multiple 0.4-1 cm, brown-black papules/plaques with waxy stuck on appearance - Benign. No treatment necessary. - Reassured about benign nature and natural history. E. Solar Lentigines -Blotchy pigmentation and telangiectasia on sun-exposed skin with subtle yellowish cobblestoned appearance. - Benign. No treatment necessary. - Reassured about benign nature and natural history. - RTC if growing or changing - Sun avoidance, protective clothing and the use of SPF 30+ sunscreen is advised. Observe closely for skin changes and call if such occurs. F. Actinic Keratoses -0.2-0.3cm scaly irregular pink papule(s) on the central forehead x2 - Counseled: AKs, risk for progression to SCCs, and treatment options, including observation, LN2, Efudex cream, and PDT. Procedure Note: Procedure: Destruction of lesions with cryotherapy. Number: 2 Location: as above Discussed procedure and expectations including risks (including risk of hypopigmentation) and benefits. Verbal consent obtained. Frozen with LN2, 15-30 second thaw time, TWICE. There were no complications; the patient tolerated the procedure well. Post-procedure expectations and wound care were reviewed. G. Acne vulgaris- scattered eroded papules on nose - Start Rx: Clindamycin Gel Apply topically to the face BID acne for flares - Likely worsened by mask use Other: ??? N/A RTC: 1 year for FSE []Note routed to food and beverage outlets manager [x]Recall placed in scheduling system []Appointment scheduled at checkout Scribe attestation: La Reyes LPN has performed the documentation for this encounter in thepresence of and acting as a scribe for Leonila Michael MD. I performed the above scribed service and agree with the accuracy of the documentation in this encounter. Reviewed and signed by: Leonila Michael MD Dermatology [facility] documented in this encounter Plan of Treatment Upcoming Encounters Date Type Department Care Team (Late st Contact Info) Description 09/10/2024 11:00 AM EDT Office Visit Dermatology at [facility] [address] [place] [address] Leonila Hills MD [facility] [address] TATIANA [place] [address] documented as of this encounter Visit Diagnoses Diagnosis History of basal cell carcinoma Personal history of other malignant neoplasm of skin Solar lentigo Other dyschromia Seborrheic keratosis Other seborrheic keratosis Trejo angioma Nevus, non-neoplastic Multiple benign nevi Benign neoplasm of skin, site unspecified Actinic keratosis Acne vulgaris Other acne documented in this encounter Care Teams Grinding Machine Operator Automatic Relationship Specialty Start Date End Date Antolin Hutchins, KAYLA [address] [place] [address] PCP - General Family Medicine 04/20/20 documented as of this encounter
--- OUTSIDE RECORDS SUMMARY | 2023-09-22 06:10 | XMS_ITS | Encounter Summary ---
Author Organization [facility] Address [facility] [place] [address] Care Team Providers Care Appliance Tester Name Role Phone Antolin Hutchins APRN Primary Care Provider [phone] Encounter Details Date Type Department Care Team (Latest Contact Info) Description 01/26/2022 Travel Social History Tobacco Use Types Packs/Day Years Used Date Smoking Tobacco: Never Smokeless Tobacco: Never Sex and Gender Information Value Date Recorded Sex Assigned at Not on file Gender Identity Not on file Sexual Orientation Not on file documented as of this encounter Plan of Treatment Upcoming Encounters Date Type Department Care Team (Late st Contact Info) Description 09/10/2024 11:00 AM EDT Office Visit Dermatology at [facility] [address] [place] [address] Leonila Hills MD [facility] [address] TATIANA [place] [address] documented as of this encounter Visit Diagnoses Not on filedocumented in this encounter Care Teams Appliance Tester Relationship Specialty Start Date End Date Antolin Hutchins APRN [address] [place], [place] [id number] PCP - General Family Medicine 04/20/20 documented as of this encounter
--- OUTSIDE RECORDS SUMMARY | 2023-09-22 06:10 | XMS_ITS | Encounter Summary ---
Author Organization [facility] Address [address] [place] [address] Care Team Providers Care Border Measurer Name Role Phone Unknown, Provider Primary Care Provider [phone] Encounter Details Date Type Department Care Team (Late st Contact Info) Description 11/22/2004 Results Only [facility] - Maple conversion [address] [place] [address] Mary Grace Ji, [address] [place] [address] Social History Tobacco Use Types [...] Priority Date/Time Associated Diagnosis Comments CYTOPATHOLOGY Routine 11/22/2004 0:00 EDT documented in this encounter Results * CYTOPATHOLOGY (11/22/2004 0:00 EDT) Pathology Report: CYTOPATHOLOGY REPORT Reports generated via electronic interface contain original data; however they are lacking the format of the original report. Caution should be taken when reading/interpreti ng unformatted reports. Name: ? ZHANNA YAN ? Accession #: ? [id number] : ? 1955 (Age: 49) ??F ?Collect Date: ? 11/22/2004 Location: ? [facility] ? Receive Date: ? 11/24/2004 Provider: ?MARY GRACE JI [employer] Copy to: ? Specimen/Source: ?ThinPrep Pap Test, Cervix/Endocervix, processed on [employer] ThinPrep Imaging System, with manual evaluation Last Menstrual Period: ? Previous Gynecologic Pathology: ? ASC-US: Benign cellular changes: 1999 Treatment History: ? Miscellaneous treatment: BSO 2003 Other: ? HPVA - HPV testing requested if ASC-US on the current ThinPrep Pap test. ? SPECIMEN ADEQUACY ? Satisfactory for Evaluation - transformation zone component present GENERAL CATEGORIZATION ? Negative for Intraepithelial Lesion or Malignancy ? Document reviewed and electronically signed by: ? HERRERA Lang(ASCP) ? Report Date: ??12/01/2004 12:24 End of Report [facility] 11/22/2004 11/24/2004 Mary Grace Ji [employer] PATHOLOGY ORDERABLES [facility] [address] [place] [address] documented in this encounter Visit Diagnoses Not on filedocumented in this encounter Care Teams Border Measurer Relationship Specialty Start Date End Date Unknown, Provider, PCP - General 04/08/09 11/11/10 documented as of this encounter
--- OUTSIDE RECORDS SUMMARY | 2023-09-22 06:10 | XMS_ITS | Encounter Summary ---
Author Organization [facility] Address [facility] [place] [address] Care Team Providers Care Teller Coordinator Name Role Phone Antolin Hutchins APRN Primary Care Provider [phone]- [phone] Encounter Details Date Type Department Care Team (Latest Contact Info) Description 05/24/2022 Travel Social History Tobacco Use Types Packs/Day [...] 11:00 AM EDT Office Visit Dermatology at [facility] [address] [place] [address] Leonila Hills MD [facility] DR TATIANA [place] [address] documented as of this encounter Visit Diagnoses Not on filedocumented in this encounter Care Teams Teller Coordinator Relationship Specialty Start Date End Date Antolin Hutchins APRN [address] [place], [place] [id number] PCP - General Family Medicine 04/20/20 documented as of this encounter
--- OUTSIDE RECORDS SUMMARY | 2023-09-22 06:10 | XMS_ITS | Encounter Summary ---
Author Organization [facility] Address [facility] [place] [address] Care Team Providers Care Vocational Instructor Name Role Phone Charlie Graham MD Primary Care Provider [phone] Reason for Visit * Reason Comments Skin Cancer Examination Encounter Details Date Type Department Care Team (Late st Contact Info) Description 07/12/2019 1:00 PM EDT Office Visit Dermatology at [facility] [address] [place] [address] Yaniv Fernandes MD [facility] [address] [place] [address] History of basal cell carcinoma (BCC); Seborrheic keratosis; Pigmented actinic keratosis; Seborrheic keratosis, inflamed; AK (actinic keratosis) Social History Tobacco Use Types Packs/Day Years Used Date Smoking Tobacco: Never Smokeless Tobacco: Never Sex and Gender Information Value Date Recorded Sex Assigned at Not on file Gender Identity Not on file Sexual Orientation Not on file documented as of this encounter Patient Instructions * Patient Instructions* Roxanne Rasmussen LPN - 07/12/2019 1:00 PM EDT Liquid Nitrogen You were treated today with Liquid Nitrogen. Liquid nitrogen is extremely cold, and freezes the surface of the skin, causing the lesion to flake off. Treatment with liquid nitrogen can be uncomfortable, but discomfort should subside after a couple of hours. The area treated will look red and irritated, and it may blister up or turn dark, then fall off. This is normal! You do not need any special treatment for the area, but you may find cold compresses and/or a lightapplication of Vaseline soothing. For best results, do not rub or pick at the healing lesion. Expected healing time is 3-4 weeks. Please contact the Dermatology clinic at [phone] if the lesion has not fully resolved after 6 weeks. documented in this encounter Progress Notes * Yaniv Fernandes MD - 07/12/2019 1:00 PM EDT Images from the original note were not included. DERMATOLOGY AT [facility] Dermatology At [facility] [address] [facility] [address] FOLLOW-UP Date of service: 07/12/2019 Zhanna Weaver : 1955 Provider: Yaniv Fernandes MD Preferred name:??Zhanna Preferred contact method with results:??[phone] Message with results on machine okay?:??yes ? SKIN HISTORY: BCC on right waistline/ low back- excised 07/11/13 Actinic keratoses??- LN2 Irritated seborrheic keratosis Solar lentigines Seborrheic keratoses Chief Complaint: FSE History of Present Illness Zhanna Weaver is a 64 y.o. year old female. Established patient, last seen April of 2018. Here today for a FSE. She reports a couple of lesions on her back that are moderately itchy. Her bra irritates this. She would loved for this to be removed today. She also notes a couple of new pimple like lesions on the tip of her nose. These are slightly tender. She notes that she has spent much time in the sun this spring. The lesion on the central forehead has been present for quite some time. Medical History No past medical history on file. Allergies Patient has no known allergies. Medications No current outpatient medications on file. No current facility-administered medications for this visit. Social History Works for [employer] Never smoked ?? Family History Non contributory Review of Systems General: feeling well Skin: denies other skin complaints Examination General: NAD, pleasant, cooperative. Type of exam: The patient was asked to disrobe to the level of their comfort. Full skin examination of the scalp, hair, head, face, neck, back, chest, abdomen, right and left upper extremities, right and left lower extremities and buttocks was normal with the exception of the findings listed below. Significant skin findings: ?? Well healed scar on the left waistline. ?? brown papules with waxy, stuck-on appearance on the left scapula ?? 1.0 cm slightly rough pinkish brown papule. ?? Verrucous stuck on papule with surrounding erythema on the left anglican ?? On the right tip of nose ?? 0.2-0.3cm scaly irregular pink papule on the left tip of nose ASSESSMENT/PLAN: History of BCC -NER Seborrheic Keratoses - Benign. No treatment necessary. - Reassured about benign nature and natural history. Pigmented Actinic Keratosis -Joint decision to treat this today with LN2 today. Procedure Note: Procedure: Destruction of lesion(s) with cryotherapy. Number: 2- nasal tip, left forehead. Location: as above Discussed procedure and expectations including risks (including risk of hypopigmentation) and benefits. Verbal consent obtained. Frozen with LN2, 15-30 second thaw time, TWICE. There were no complications; the patient tolerated the procedure well. Post-procedure expectations and wound care were reviewed. Irritated Seborrheic Keratosis - Benign, but symptomatic. Procedure Note: Procedure: Destruction of lesion(s) with cryotherapy. Number: 1 Location: as above Discussed procedure and expectations including risks (including risk of hypopigmentation) and benefits. Verbal consent obtained. Frozen with LN2, 15-30 second thaw time, TWICE. There were no complications; the patient tolerated the procedure well. Post-procedure expectations and wound care were reviewed. Blocked pore -Patient reassured of the benign nature of this lesion. -No treatment needed. Actinic Keratoses - Counseled: AKs, risk for progression to SCCs, and treatment options, including observation, LN2, Efudex cream, and PDT. Procedure Note: Procedure: Destruction of lesions with cryotherapy. Number: 1 Location: as above Discussed procedure and expectations including risks (including risk of hypopigmentation) and benefits. Verbal consent obtained. Frozen with LN2, 15-30 second thaw time, TWICE. There were no complications; the patient tolerated the procedure well. Post-procedure expectations and wound care were reviewed. -Advised patient to wear SPF 30+ RTC 1 year FSE, or sooner if needed. Routed to the quality technician for scheduling. Note initiated and routed to physician for review and change by: Roxanne Rasmussen LPN I, Roxanne Rasmussen LPN, have performed the documentation for this encounter in the presence of and acting as a scribe for YANIV FERNANDES MD. I performed the services which were documented by the scribe, and I agree with the accuracy of the documentation in this encounter. YANIV FERNANDES MD. Yaniv Fernandes MD Section of Dermatology [facility] documented in this encounter Plan of Treatment Upcoming Encounters Date Type Department Care Team (Late st Contact Info) Description 09/10/2024 11:00 AM EDT Office Visit Dermatology at [facility] [address] [place] [address] Leonila Hills MD [facility] [address] [place] [address] documented as of this encounter Visit Diagnoses Diagnosis History of basal cell carcinoma (BCC) Seborrheic keratosis Other seborrheic keratosis Pigmented actinic keratosis Seborrheic keratosis, inflamed Inflamed seborrheic keratosis AK (actinic keratosis) Actinic keratosis documented in this encounter Care Teams Vocational Instructor Relationship Specialty Start Date End Date Charlie Graham MD [address] [place] [address] PCP - General 01/21/13 04/19/20 documented as of this encounter
--- OUTSIDE RECORDS SUMMARY | 2023-09-22 06:10 | XMS_ITS | Encounter Summary ---
Author Organization [facility] Address [address] [place] [address] Care Team Providers Care Driver Name Role Phone Unavailable Primary Care Provider Unavailabl e Encounter Details Date Type Department Care Team (Late st Contact Info) Description 02/21/2008 Before PRISM Converted Visit (Maple) [facility] - Maple conversion [address] [place] [address] Mary Grace Ji, [facility] [address] [place] [address] [place] [address] Social History Tobacco Use Types [...] Priority Date/Time Associated Diagnosis Comments CYTOPATHOLOGY Routine 02/21/2008 0:00 EST documented in this encounter Results * CYTOPATHOLOGY (02/21/2008 0:00 EST) Pathology Report: CYTOPATHOLOGY REPORT ? Reports generated via electronic interface contain original data; ? however they are lacking the format of the original report. ? Caution should be taken when reading/interpreti ng unformatted reports. ? Name: ? ZHANNA YAN ? Accession #: ? [id number] ? : ? 1955 (Age: 52) ??F ?Collect Date: ? 02/21/2008 ? Location: ? [facility] ? Receive Date: ? 02/22/2008 ? Provider: ?MARY GRACE DASH NETWORK DEVELOPER ? Copy to: ? Specimen/Source: ?Pap Test, Cervix/Endocervix, ThinPrep Imaging System ? with manual evaluation ? Last Menstrual Period: ? 2003 ? Previous Gynecologic Pathology: ? ASC-US: 3/98 ? Benign cellular changes: 2000 ? Yes: 12/11/08 unsatisfactory ? Treatment History: ? Miscellaneous treatment: BSO 2003 ? Other: ? HPVA - HPV testing requested if ASC-US on the current ThinPrep Pap test. ? SPECIMEN ADEQUACY ? Satisfactory for Evaluation ? - transformation zone component present ? GENERAL CATEGORIZATION ? Negative for Intraepithelial Lesion or Malignancy ? Document reviewed and electronically signed by: ? Sary Rudy. [place], [place](ASCP) ? Report Date: ??02/26/2008 12:30 ? End of Report ? [facility] 02/21/2008 02/22/2008 Mary Grace Ji NETWORK DEVELOPER PATHOLOGY ORDERABLES [facility] [address] [place] [address] documented in this encounter Visit Diagnoses Not on filedocumented in this encounter
--- OUTSIDE RECORDS SUMMARY | 2023-09-22 06:10 | XMS_ITS | Encounter Summary ---
Author Organization [facility] Address [address] [place] [address] Care Team Providers Care Life Skills Worker Name Role Phone Charlie Graham MD Primary Care Provider [phone] Encounter Details Date Type Department Care Team (Late st Contact Info) Description 03/24/2020 Lab Requisition [facility] Pathology & Laboratory Medicine - [address] [address] Mary Grace Ji, [address] [place] [address] Encounter for other general examination Social History Tobacco Use Types Packs/Day Years Used Date Smoking Tobacco: Never Assessed Interpersonal Safety Answer Date Record ed Physically Hurt Never 09/08/2019 Verbally Threaten Not on file 09/08/2019 Sex and Gender Information Value Date Recorded Sex Assigned at Not on file Gender Identity Not on file Sexual Orientation Not on file documented as of this encounter Plan of Treatment Not on file documented as of this encounter Procedures Procedure Name Priority Date/Time Associated Diagnosis Comments PAP TEST Today 03/23/2020 15:00 EST Encounter for other general examination HPV DNA DETECTION WITH GENOTYPING, PCR Today 03/23/2020 15:00 EST Encounter for other general examination documented in this encounter Results * HUMAN PAPILLOMAVIRUS (HPV) DETECTION-HIGH RISK TYPES (03/23/2020 15:00 EST) HPV other High Risk types, PCR Negative Negative 03/31/2020 7:57 [facility] Comment:No E6 or E7 mRNA is detected from HPV types 16,18,31,33,35,39,45,51,52,56,58,59,66, and 68 by solar energy installation manager mediated amplification. Papanicolaou smear specimen (specimen) CERVIX UTERI STRUCTURE / Unknown 03/23/2020 15:00 EST 03/27/2020 14:51 EST Mary Grace Ji RADIATION SAFETY OFFICER MICROBIOLOGY - GENER AL ORDERABLES [facility] [address] [place] [address] * PAP TEST (03/23/2020 15:00 EST) Specimens A. Cervix and/or Endocervix , ThinPrep Imaging System with Manual Evaluation 03/31/2020 7:57 [facility] Specimen Adequacy Satisfactory for Evaluation - transformation zone component absent 03/31/2020 7:57 [facility] General Categorization Negative for intraepithelial lesion or malignancy 03/31/2020 7:57 [facility] Attestation . 03/31/2020 7:57 [facility] at 0757 Clinical History See below 03/31/19 7:57 [facility] HPV The result for the Human Papillomavirus (HPV) Detection-High Risk Types is Negative. No E6 or E7 mRNA is detected from HPV types 16,18,31,33,35,39 ,45,51,52,56,58,5 9,66, and 68 by solar energy installation manager mediated amplification.Stephany ting was performed on specimen [id number] and was resulted on 03/31/2020 0756 EST by MAJOR, LAB INSTRUMENT RESULTS IN 03/31/2020 7:57 [facility] Performing Lab [facility] 03/31/2020 7:57 [facility] Scanned Images 03/31/2020 7:57 [facility] Papanicolaou smear specimen (specimen) CERVIX UTERI STRUCTURE / Unknown 03/23/2020 15:00 EST 03/24/2020 8:55 EST Mary Grace Ji RADIATION SAFETY OFFICER PATHOLOGY ORDERABLES [facility] [address] [place] [address] documented in this encounter Visit Diagnoses Diagnosis Encounter for other general examination documented in this encounter Care Teams Life Skills Worker Relationship Specialty Start Date End Date Charlie Graham MD PCP - General 12/10/12 documented as of this encounter
--- OUTSIDE RECORDS SUMMARY | 2023-09-22 06:10 | XMS_ITS | Encounter Summary ---
Author Organization [facility] Address [facility] [place] [address] Care Team Providers Care Historical Interpreter Name Role Phone CuongAntolin KAYLA Primary Care Provider [phone] Encounter Details Date Type Department Care Team (Late st Contact Info) Description 05/19/2022 Telephone Dermatology at [facility] [address] [place] [address] Elaine Beebe, RN Social History Tobacco Use Types Packs/Day Years Used Date Smoking Tobacco: Never Smokeless Tobacco: Never Sex and Gender Information Value Date Recorded Sex Assigned at Not on file Gender Identity Not on file Sexual Orientation Not on file documented as of this encounter Miscellaneous Notes * Telephone Encounter - Elaine Beebe RN - 05/19/2022 4:09 PM EDT Opened in error documented in this encounter Plan of Treatment Upcoming Encounters Date Type Department Care Team (Late st Contact Info) Description 09/10/2024 11:00 AM EDT Office Visit Dermatology at [facility] [address] [place] [address] Leonila Hills MD [facility] DR TATIANA COVINGTON-DERMATOLOGY [place], [place] [id number] documented as of this encounter Visit Diagnoses Not on filedocumented in this encounter Care Teams Historical Interpreter Relationship Specialty Start Date End Date Antolin Hutchins, KAYLA [address] [place] [address] PCP - General Family Medicine 04/20/20 documented as of this encounter
--- OUTSIDE RECORDS SUMMARY | 2023-09-22 06:10 | XMS_ITS | Referral Summary ---
Author Organization [facility] Address [address] [place] [address] Care Team Providers Care Assistant Kitchen Manager Name Role Phone Charlie Graham MD Primary Care Provider [phone] Social History Tobacco Use Types Packs/Day Years Used Date Smoking Tobacco: Never Assessed Interpersonal Safety Answer Date Record ed Physically Hurt Never 09/08/2019 Verbally Threaten Not on file 09/08/2019 Sex and Gender Information Value Date Recorded Sex Assigned at Not on file Gender Identity Not on file Sexual Orientation Not on file Plan of Treatment Not on file Care Teams Assistant Kitchen Manager Relationship Specialty Start Date End Date Charlie Graham MD PCP - General 12/10/12
--- OUTSIDE RECORDS SUMMARY | 2023-09-22 06:10 | XMS_ITS | Encounter Summary ---
Author Organization [facility] Address [address] [place] [address] Care Team Providers Care Gang Investigator Name Role Phone Unknown, Provider Primary Care Provider [phone] Encounter Details Date Type Department Care Team (Late st Contact Info) Description 09/25/2002 Results Only [facility] - Maple conversion [address] [place] [address] Mary Grace Ji, [address] [place] [address] Social History Tobacco Use Types [...] Priority Date/Time Associated Diagnosis Comments CYTOPATHOLOGY Routine 09/25/2002 0:00 EDT documented in this encounter Results * CYTOPATHOLOGY (09/25/2002 0:00 EDT) Pathology Report: CYTOPATHOLOGY REPORT Reports generated via electronic interface contain original data; however they are lacking the format of the original report. Caution should be taken when reading/interpreti ng unformatted reports. Name: ? ZHANNA YAN ? Accession #: ? [id number] : ? 1955 (Age: 47) ??F ?Collect Date: ? 09/25/2002 Location: ? [facility] ? Receive Date: ? 09/26/2002 Provider: ?MARY GRACE JI OPHTHALMIC SURGEON Copy to: ? Specimen/Source: ?ThinPrep Pap Test, Cervix/Endocervix Last Menstrual Period: ? 03/10 Previous Gynecologic Pathology: ? ASC-US: Benign cellular changes: 1999 Other: ? Additional clinical information: Paps , 1998, 05/29/01 negative ? SPECIMEN ADEQUACY ? Satisfactory for Evaluation - transformation zone component present GENERAL CATEGORIZATION ? Negative for Intraepithelial Lesion or Malignancy ? Document reviewed and electronically signed by: ? HERRERA Howell(ASCP) ? Report Date: ??10/01/2002 11:09 End of Report ELISEO SUERO 09/25/2002 09/26/2002 Mary Grace Ji OPHTHALMIC SURGEON PATHOLOGY ORDERABLES Performing Organization Address City/State/[facility] Co de Phone Number ELISEO SUERO [address] [place] [address] documented in this encounter Visit Diagnoses Not on filedocumented in this encounter Care Teams Gang Investigator Relationship Specialty Start Date End Date Unknown, Provider, PCP - General 04/08/09 11/11/10 documented as of this encounter
--- OUTSIDE RECORDS SUMMARY | 2023-09-22 06:10 | XMS_ITS | Encounter Summary ---
Author Organization [facility] Address [facility] [place] [address] Care Team Providers Care Housing Coordinator Name Role Phone CuongAntolin gage KAYLA Primary Care Provider [phone] Encounter Details Date Type Department Care Team (Late st Contact Info) Description 05/19/2022 Telephone Dermatology at [facility] [address] [place] [address] Leonila Hills MD [facility] [address] TATIANA [place] [address] Social History Tobacco Use Types Packs/Day Years Used Date Smoking Tobacco: Never Smokeless Tobacco: Never Sex and Gender Information Value Date Recorded Sex Assigned at Not on file Gender Identity Not on file Sexual Orientation Not on file documented as of this encounter Miscellaneous Notes * Telephone Encounter - Elaine Beebe RN - 05/19/2022 4:05 PM EDT I called Zhanna back and let her know here biopsy results she wishes to move forward with [facility]. Elaine Beebe RN * Telephone Encounter - Rosalba Ybarra - 05/19/2022 3:39 PM EDT Zhanna called today to discuss her biopsy results. Please call to advise. documented in this encounter Plan of Treatment Upcoming Encounters Date Type Department Care Team (Late st Contact Info) Description 09/10/2024 11:00 AM EDT Office Visit Dermatology at [facility] [address] [place] [address] Leonila Hills MD [facility] DR TATIANA [place] [address] documented as of this encounter Visit Diagnoses Diagnosis Basal cell carcinoma (BCC), unspecified site documented in this encounter Care Teams Housing Coordinator Relationship Specialty Start Date End Date Antolin Hutchins APRN [address] [place] [address] PCP - General Family Medicine 04/20/20 documented as of this encounter
--- OUTSIDE RECORDS SUMMARY | 2023-09-22 06:10 | XMS_ITS | Encounter Summary ---
Author Organization [facility] Address [facility] [place] [address] Care Team Providers Care Fundraising Assistant Name Role Phone Antolin Hutchins APRN Primary Care Provider [phone] Encounter Details Date Type Department Care Team (Latest Contact Info) Description 04/20/2022 Travel Social History Tobacco Use Types Packs/Day [...] 11:00 AM EDT Office Visit Dermatology at [facility] [address] [place] [address] Leonila Hills MD [facility] [address] TATIANA [place] [address] documented as of this encounter Visit Diagnoses Not on filedocumented in this encounter Care Teams Fundraising Assistant Relationship Specialty Start Date End Date Antolin Hutchins APRN [address] [place], [place] [id number] PCP - General Family Medicine 04/20/20 documented as of this encounter
--- OUTSIDE RECORDS SUMMARY | 2023-09-22 06:10 | XMS_ITS | Encounter Summary ---
Author Organization [facility] Address [address] [place] [address] Care Team Providers Care Protein Purification Scientist Name Role Phone Unknown, Provider Primary Care Provider [phone] Encounter Details Date Type Department Care Team (Late st Contact Info) Description 01/11/2007 Results Only [facility] - [facility] conversion [address] [place] [address] Mary Grace Ji, [address] [place] [address] Social History Tobacco Use Types [...] Priority Date/Time Associated Diagnosis Comments CYTOPATHOLOGY Routine 01/11/2007 0:00 EST documented in this encounter Results * CYTOPATHOLOGY (01/11/2007 0:00 EST) Pathology Report: CYTOPATHOLOGY REPORT Reports generated via electronic interface contain original data; however they are lacking the format of the original report. Caution should be taken when reading/interpreti ng unformatted reports. Name: ? ZHANNA YAN ? Accession #: ? [id number] : ? 1955 (Age: 51) ??F ?Collect Date: ? 01/11/2007 Location: ? [facility] ? Receive Date: ? 01/12/2007 Provider: ?MARY GRACE JI DIPLOMA PHARMACY TECHNICIAN Copy to: ? Specimen/Source: ?ThinPrep Pap Test, Cervix/Endocervix, processed on [employer]Prep Imaging System, with manual evaluation Last Menstrual [...] reviewed and electronically signed by: ? HERRERA Craven(ASCP) ? Report Date: ??01/16/2007 13:22 End of Report ELISEO SUERO 01/11/2007 01/12/2007 Mary Grace Ji DIPLOMA PHARMACY TECHNICIAN PATHOLOGY ORDERABLES [facility] [address] [place] [address] documented in this encounter Visit Diagnoses Not on filedocumented in this encounter Care Teams Protein Purification Scientist Relationship Specialty Start Date End Date Unknown, Provider, PCP - General 04/08/09 11/11/10 documented as of this encounter
--- OUTSIDE RECORDS SUMMARY | 2023-09-22 06:10 | XMS_ITS | Encounter Summary ---
Author Organization [facility] Address [address] [place] [address] Care Team Providers Care County Demonstrator Name Role Phone Unknown, Provider Primary Care Provider [phone] Encounter Details Date Type Department Care Team (Late st Contact Info) Description 05/29/2001 Results Only [facility] - Maple conversion [address] [place] [address] Mary Grace Ji, [address] [place] [address] Social History Tobacco Use Types [...] Priority Date/Time Associated Diagnosis Comments CYTOPATHOLOGY Routine 05/29/2001 0:00 EDT documented in this encounter Results * CYTOPATHOLOGY (05/29/2001 0:00 EDT) Pathology Report: CYTOPATHOLOGY REPORT Reports generated via electronic interface contain original data; however they are lacking the format of the original report. Caution should be taken when reading/interpreti ng unformatted reports. Name: ? ZHANNA YAN ? Accession #: ? [id number] : ? 1955 (Age: 46) ??F ?Collect Date: ? 05/29/2001 Location: ? [facility] ? Receive Date: ? 05/31/2001 Provider: ?MARY GRACE JI VALET MANAGER Copy to: ? Specimen/Source: ?ThinPrep Pap Test, Cervix/Endocervix Last Menstrual Period: ? 02/09/01 ? SPECIMEN ADEQUACY ? Satisfactory for Evaluation - transformation zone component present GENERAL CATEGORIZATION ? Negative for Intraepithelial Lesion or Malignancy ? Document reviewed and electronically signed by: ? HERRERA Danielson(ASCP) ? Report Date: ??06/05/2001 14:25 End of Report ELISEO SUERO 05/29/2001 05/31/2001 Mary Grace Ji VALET MANAGER PATHOLOGY ORDERABLES Performing Organization Address City/State/[facility] Co de Phone Number [facility] [address] [place] [address] documented in this encounter Visit Diagnoses Not on filedocumented in this encounter Care Teams County Demonstrator Relationship Specialty Start Date End Date Unknown, Provider, PCP - General 04/08/09 11/11/10 documented as of this encounter
--- OUTSIDE RECORDS SUMMARY | 2023-09-22 06:10 | XMS_ITS | Encounter Summary ---
Author Organization [facility] Address [facility] [place] [address] Care Team Providers Care Health Science Writer Name Role Phone CuongAntolin gage Kiley GARZA Primary Care Provider [phone] Encounter Details Date Type Department Care Team (Late st Contact Info) Description 04/20/2020 11:45 AM EDT Office Visit Dermatology at [facility] [address] [place] [address] Yaniv Fernandes MD [facility] [address] T[place] [address] Actinic keratosis; Seborrheic keratosis; Stucco keratoses; Trejo angioma; Multiple benign nevi; History of basal cell carcinoma (BCC) Social History Tobacco Use Types Packs/Day Years Used Date Smoking Tobacco: Never Smokeless Tobacco: Never Sex and Gender Information Value Date Recorded Sex Assigned at Not on file Gender Identity Not on file Sexual Orientation Not on file documented as of this encounter Progress Notes * Yaniv Fernandes MD - 04/20/2020 11:45 AM EDT Images from the original note were not included. DERMATOLOGY AT [facility] Dermatology At [facility] [address] [facility] [address] FOLLOW-UP Date of service: 04/17/2020 Zhanna Weaver : 1955 Provider: Yaniv Fernandes MD Preferred name:??Zhanna Preferred contact method with results:??[phone] Message with results on machine okay?:??Yes ? SKIN HISTORY: BCC on right waistline/ low back- excised 07/11/13 Actinic keratoses??- LN2 Irritated seborrheic keratosis Solar lentigines Seborrheic??keratoses ?? Chief Complaint: FSE History of Present Illness Zhanna Weaver is a 65 y.o. year old female. Established patient, last seen 07/12/19. Here today fora full skin exam. She notes some dry areas on the right cheek that is persistent. She also notes that the spot that was previously treated on the left flank has returned. She also notes new onset of acne, which she associates with wearing a mask. She has not noted any other new, growing, changing, bleeding, painful or otherwise symptomatic moles or other lesions. She has not noted any other changes in any preexisting lesions. Medical History Noncontributory Allergies Patient has no known allergies. Medications No current outpatient medications on file. No current facility-administered medications for this visit. 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 Family History Noncontributory Review of Systems General: feeling well Skin: [...] findings listed below. Significant skin findings: ?? Right cheek x1: 0.2-0.3cm scaly irregular pink papule ?? Left flank, back: Multiple 0.4-1 cm, brown-black papules/plaques with waxy stuck on appearance ?? Arms and legs: 0.2-0.3cm warty, stuck-on macules ?? Trunk: Multiple 0.2-0.4cm bright red, well-demarcated papules ?? Legs, back: Multiple, 0.3-0.5cm, medium-brown, evenly-pigmented macules and papules. No pigmented lesions suspicious for melanoma. ?? Well healed scars on the left waistline ASSESSMENT/PLAN: Actinic Keratosis - right cheek x1 - Discussed premalignant potential of these lesions. - Shared decision to proceed with LN2 treatment at this time: Procedure Note: Procedure: Destruction of lesions with cryotherapy. Number: 1 Location: as above Discussed procedure and expectations including risks (including risk of hypopigmentation) and benefits. Verbal consent obtained. Frozen with LN2, 15-30 second thaw time, TWICE. There were no complications; the patient tolerated the procedure well. Post-procedure expectations and wound care were reviewed. Seborrheic Keratosis. Previously treated ISK - left flank - Benign. Joint decision to retreat. No charge. Procedure Note: Procedure: Destruction of lesions with cryotherapy. Number: 1 Location: as above Discussed procedure and expectations including risks (including risk of hypopigmentation) and benefits. Verbal consent obtained. Frozen with LN2, 15-30 second thaw time, TWICE. There were no complications; the patient tolerated the procedure well. Post-procedure expectations and wound care were reviewed. Seborrheic Keratoses - Benign. No treatment necessary. - Reassured about benign nature and natural history. Macular Keratoses - arms and legs - Benign. No treatment necessary. - Reassured about benign nature and natural history. Trejo Angiomas - Benign. No treatment necessary. - Reassured about benign nature and natural history. Benign Appearing Nevi - Benign. No treatment necessary. - Reassured about benign nature and natural history. History of BCC - Well healed scars on the left waistline - No evidence of recurrence - Will continue to monitor RTC [address] Brown, which I discussed with her (Hx of BCC). Recall placed. Note initiated and routed to physician for review and change by: Pato Rich CMA I, Daniel Garvey , have performed the documentation for this encounter in the presence of and acting as a scribe for YANIV FERNANDES MD. I performed the services which were documented by the scribe, and I agree with the accuracy of the documentation in this encounter. YANIV FERNANDES MD. Yaniv Fernandes MD Professor of Dermatology Department of Dermatology [facility] documented in this encounter Plan of Treatment Upcoming Encounters Date Type Department Care Team (Late st Contact Info) Description 09/10/2024 11:00 AM EDT Office Visit Dermatology at [facility] [address] [place] [address] Leonila Hills MD [facility] [address] [place] [address] documented as of this encounter Visit Diagnoses Diagnosis Actinic keratosis Seborrheic keratosis Other seborrheic keratosis Stucco keratoses Trejo angioma Nevus, non-neoplastic Multiple benign nevi Benign neoplasm of skin, site unspecified History of basal cell carcinoma (BCC) documented in this encounter Care Teams Health Science Writer Relationship Specialty Start Date End Date Antolin Hutchins, KAYLA [address] [place] [address] PCP - General Family Medicine 04/20/20 documented as of this encounter
--- OUTSIDE RECORDS SUMMARY | 2023-09-22 06:10 | XMS_ITS | Clinical Summary ---
Author Organization [facility] Address [address] [place] [address] Care Team Providers Care Managed Services Consultant Name Role Phone Charlie Graham MD Primary Care Provider [phone] Social History Tobacco Use Types Packs/Day Years Used Date Smoking Tobacco: Never Assessed Interpersonal Safety Answer Date Record ed Physically Hurt Never 09/08/2019 Verbally Threaten Not on file 09/08/2019 Sex and Gender Information Value Date Recorded Sex Assigned at Not on file Gender Identity Not on file Sexual Orientation Not on file Plan of Treatment Health Maintenance Due Date Last Done Comments Hepatitis C Screen 1955 RSV Immunization ( o r 60+ Years) (1 - 1-dose 60+ series) 2015 Fall Risk Screening 04/10/2020 COVID-19 Vaccine (2022-24 season) 2022 Care Teams Managed Services Consultant Relationship Specialty Start Date End Date Charlie Graham MD PCP - General 12/10/12
--- OUTSIDE RECORDS SUMMARY | 2023-09-22 06:10 | XMS_ITS | Encounter Summary ---
Author Organization [facility] Address [address] [place] [address] Care Team Providers Care Machine Operator Transplanter Name Role Phone Unknown, Provider Primary Care Provider Encounter Details Date Type Department Care Team (Late st Contact Info) Description 02/22/2010 Results Only [facility] Laboratory Services - [facility] ([facility]) [address] [place], [place] [address] Mary Grace Ji, [facility] [address] [place] [address] [place] [address] Social History Tobacco Use Types [...] Priority Date/Time Associated Diagnosis Comments CYTOPATHOLOGY Routine 02/22/2010 0:00 EST documented in this encounter Results * CYTOPATHOLOGY (02/22/2010 0:00 EST) Pathology Report: CYTOPATHOLOGY REPORT ? Reports generated via electronic interface contain original data; ? however they are lacking the format of the original report. ? Caution should be taken when reading/interpreti ng unformatted reports. ? Name: ? ZHANNA YAN ? Accession #: ? [id number] ? : ? 1955 (Age: 54) ??F ?Collect Date: ? 02/22/2010 ? Location: ? [facility] ? Receive Date: ? 02/23/2010 ? Provider: MARY GRACE DASH COTTON ROLL PACKER ? Copy to: ? Final Report ? SPECIMEN ADEQUACY ? Satisfactory for Evaluation ? - transformation zone component present ? GENERAL CATEGORIZATION ? Negative for Intraepithelial Lesion or Malignancy ? INTERPRETATION ? Reactive cellular changes associated with inflammation present (includes ?? repair). ? Last Menstural Period: 2003 ? Specimen/Source: ??Pap Test, Cervix/Endocervix, ThinPrep Imaging System with ? manual evaluation ? Document reviewed and electronically signed by: ? MIGNON L LARSEN MD ? Report ??Date: 03/01/2010 15:38 ? HPV with Pap Test ? Date Ordered: ? 03/01/2010 ? Status: ?? Signed Out ?Date Complete: ? 03/04/2010 ? By: ??System Interface ? Date Reported: ? 03/04/2010 ? Interpretation ? RESULT: Negative for HPV types 16, 18, 31, 33, 35, 39, 45, 51, 52, ? 56, 58, 59, and 68. ? Comments ? Document reviewed and electronically signed by: ? System Interface ? Report date: 03/04/2010 ? By the signature above, the attending physician certifies that he/she has ? personally conducted a gross and/or microscopic examination of the described ? specimens and rendered or confirmed the above diagnosis. ? End of Report ? ELISEO SUERO 02/22/2010 02/23/2010 Mary Grace Ji COTTON ROLL PACKER PATHOLOGY ORDERABLES Performing Organization Address City/State/[facility] Co de Phone Number ELISEO SUERO [address] [place] [address] documented in this encounter Visit Diagnoses Not on filedocumented in this encounter Care Teams Machine Operator Transplanter Relationship Specialty Start Date End Date Unknown, Provider, PCP - General 04/08/09 11/11/10 documented as of this encounter
--- OUTSIDE RECORDS SUMMARY | 2023-09-22 06:10 | XMS_ITS | Encounter Summary ---
Author Organization [facility] Address [address] [place] [address] Care Team Providers Care Accounting Office Manager Name Role Phone Unavailable Primary Care Provider Unavailabl e Encounter Details Date Type Department Care Team (Late st Contact Info) Description 04/06/[address] [facility] Laboratory Services - [facility] ([facility]) [address] [place], [place] [address] Corey Wallace MD [address] [place] [address] Social History Tobacco Use Types Packs/Day Years Used Date Smoking Tobacco: Never Assessed Sex and Gender Information Value Date Recorded Sex Assigned at Not on file Gender Identity Not on file Sexual Orientation Not on file documented as of this encounter Plan of Treatment Not on file documented as of this encounter Procedures Procedure Name Priority Date/Time Associated Diagnosis Comments SURGICAL PATHOLOGY Routine 04/06/2009 0:00 EST documented in this encounter Results * SURGICAL PATHOLOGY (04/06/2009 0:00 EST) Pathology Report: SURGICAL PATHOLOGY REPORT ? Reports generated via electronic interface contain original data; ? however they are lacking the format of the original report. ? Caution should be taken when reading/interpreti ng unformatted reports. ? Name: ? FARRAH, ZHANNA ? Accession #: ? [id number] ? : ? 1955 (Age: 53) ??F ? Collect Date: ? 04/06/2009 ? Location: ? [facility] ? Receive Date: ? 04/06/2009 ? Provider: COREY WALLACE MD ? Copy to: DUONG VERDIN MD ? Final Pathologic Diagnosis: ? A. ?Colon, 20 and 22 cm, polyps, polypectomies: ? 1. ?Tubulovillous adenoma. ? 2. ? Fragments of tubular adenoma(s). ? B. ?Rectum, polyp, biopsy: ? 1. ?? Fragments of tubular adenoma(s). ? Document reviewed and electronically signed by: ? Ju Osuna, MD ? Report ??Date: 04/10/2009 08:46 ? By the signature above, the attending physician certifies that he/she has ? personally conducted a gross and/or microscopic examination of the described ? specimens and rendered or confirmed the above diagnosis. ? Specimen(s) Received: ? A. ?Polyps at 20 and 22 cm ? B. ? Rectal polyp ? Clinical History: ? Colorectal screening ? Gross Description: ? Received in Hollande's fixative labelled Farrah, Zhanna and #1 polyps at 20 and 22 cm are three polypoid structures and a few small fragments of tissue. The smallest polypoid soft tissue fragment measures 0.9 x 0.7 x 0.5 cm. ??The ?? resection margin is inked black and the specimen is trisected and submitted ? entirely as (A1). ??The intermediate-sized polyp measures 1.5 x 0.8 x 0.7 cm and has an attached stalk measuring 0.7 cm in length and 1.0 cm in diameter. ??The ?? resection margin is inked black and the specimen is serially sectioned and ? submitted entirely as (A2) and (A3). ??The largest polyp measures 1.7 x 1.2 x 1.0 cm. ??The specimen is inked, sectioned and submitted entirely as (A4) and (A5). ?? The separately received tissue fragments measure 0.7 x 0.5 x 0.2 cm in aggregate and are submitted entirely as (A6). ? Received in Hollande's fixative labelled Zhanna Weaver and #2 rectal polyp is a 0.5 x 0.3 x 0.3 cm polypoid structure. ??The resection margin is inked black and the specimen is bisected and submitted entirely as (B). (Jordan Patterson)/mpl ? End of Report ? [facility] 04/06/2009 04/06/2009 17: 55 EST Corey Wallace MD PATHOLOGY ORDERABLES [facility] [address] [place] [address] documented in this encounter Visit Diagnoses Not on filedocumented in this encounter
--- OUTSIDE RECORDS SUMMARY | 2023-09-22 06:10 | XMS_ITS | Encounter Summary ---
Author Organization [facility] Address [address] [place] [address] Care Team Providers Care Telemarketing Representative Name Role Phone Gerard Villalpando MD Primary Care Provider Unavail able Encounter Details Date Type Department Care Team (Latest Contact Info) Description 12/05/2012 8:17 EDT - 12/05/2012 23:59 EDT Hospital Encounter [address] [address] Unknown, Provider, Discharge Disposition: Home or Self Care Social History Tobacco Use Types Packs/Day Years Used Date Smoking Tobacco: Never Assessed Sex and Gender Information Value Date Recorded Sex Assigned at Not on file Gender Identity Not on file Sexual Orientation Not on file documented as of this encounter Discharge Disposition Disposition Code Departure Means Destination Home or Self Jail documented in this encounter Plan of Treatment Not on file documented as of this encounter Visit Diagnoses Not on filedocumented in this encounter Care Teams Telemarketing Representative Relationship Specialty Start Date End Date Gerard Villalpando MD PCP - General 11/12/10 12/09/12 documented as of this encounter
--- OUTSIDE RECORDS SUMMARY | 2023-09-22 06:10 | XMS_ITS | Encounter Summary ---
Author Organization [facility] [place] [address] Care Team Providers Care Santa'S Helper Name Role Phone Charlie Graham MD Primary Care Provider [phone] Reason for Visit * Reason Comments Skin Check Encounter Details Date Type Department Care Team (Late st Contact Info) Description 04/09/2018 10:15 AM EST Office Visit Dermatology at [facility] [address] [place] [address] Yaniv Fernandes MD [facility] [address] [place] [address] Actinic keratoses; Tinea pedis, unspecified laterality; History of basal cell carcinoma (BCC) Social History Tobacco Use Types Packs/Day Years Used Date Smoking Tobacco: Never Smokeless Tobacco: Never Sex and Gender Information Value Date Recorded Sex Assigned at Not on file Gender Identity Not on file Sexual Orientation Not on file documented as of this encounter Progress Notes * Yaniv Fernandes MD - 04/09/2018 10:15 AM EST Images from the original note were not included. DERMATOLOGY AT [facility] Dermatology At [facility] [address] [facility] [address] FOLLOW-UP Date of service: 04/09/2018 Zhanna Weaver : 1955 Provider: Yaniv Fernandes MD Preferred name: Zhanna Preferred contact method with results: [phone] Message with results on machine okay?: yes ?? SKIN HISTORY: BCC on right waistline/ low back- excised 07/11/13 Actinic keratoses - LN2 Irritated seborrheic keratosis Solar lentigines Seborrheic keratoses Chief Complaint: Full skin exam History of Present Illness Zhanna Weaver is a 62 y.o. female. Established patient, last seen 05/01/17. Here today for an annual full skin exam. Pt notes that she has some spots on her chest and face that she is concerned about. She also states that she has an age spot on her forehead along with some bumps on her left foot. - Recently traveled to [place] with her . Preferred pharmacy:[facility] in [place], [place] Medical History Non contributory Allergies Patient has no known allergies. Medications No current outpatient medications on file. No current facility-administered medications for this visit. Social History Works for [employer] Never smoked Family History Non contributory Review of Systems [...] the exception of the findings listed below. Standby: SHO Mabry Significant skin findings: ?? Right cheek x2 :0.2-0.3cm scaly irregular pink papule(s) ?? Left lateral foot: 2.5cm faint pink patch with slight follicular prominence. ?? Location as above: Well healed scar. ASSESSMENT/PLAN: Actinic Keratoses Procedure Note: Procedure: Destruction of lesions with cryotherapy. Number: 2 Location: as above Discussed procedure and expectations including risks (including risk of hypopigmentation) and benefits. Verbal consent obtained. Frozen with LN2, 15-30 second thaw time, TWICE. There were no complications; the patient tolerated the procedure well. Post-procedure expectations and wound care were reviewed. Probable Tinea Pedis ?? Recommended OTC anti-fungal cream such as Miconazole or Clotrimazole, apply twice daily for about two to three weeks. ?? Apply a moisturizer to the area if this does not resolve. History of BCC - NER RTC April 2019 for 1 year full skin exam, hx BCC - or sooner as needed.Reminder placed in scheduling system. Note initiated and routed to physician for review and change by: SHO Mabry I, SHO Mabry, have performed the documentation for this encounter in the presence of and acting as a scribe for YANIV FERNANDES MD. I performed the services which were documented by the scribe, and I agree with the accuracy of the documentation in this encounter. YANIV FERNANDES MD. Yaniv Fernandes MD Section of Dermatology [facility] documented in this encounter Plan of Treatment Upcoming Encounters Date Type Department Care Team (Late st Contact Info) Description 09/10/2024 11:00 AM EDT Office Visit Dermatology at [address] [address] Leonila Hills MD [facility] [address]AT[address] [place] [address] documented as of this encounter Visit Diagnoses Diagnosis Actinic keratoses Actinic keratosis Tinea pedis, unspecified laterality History of basal cell carcinoma (BCC) documented in this encounter Care Teams Santa'S Helper Relationship Specialty Start Date End Date Charlie Graham MD [address] [place] [address] PCP - General 01/21/13 04/19/20 documented as of this encounter
--- OUTSIDE RECORDS SUMMARY | 2023-09-22 06:10 | XMS_ITS | Encounter Summary ---
Author Organization [facility] Address [facility] [place] [address] Care Team Providers Care Engineering Director Name Role Phone CuongAntolin Kiley GARZA Primary Care Provider [phone] Reason for Referral * Consultation (Routine) - Closed Specialty Diagnoses / Procedures Referred By Olinda price Referred To Contact Dermatology Diagnoses Basal cell carcinoma (BCC) of left side of neck Leonila Hills MD [facility] [address] [place] [address] Pawel Mena MD [facility] [address] [place] [address] Referral ID Status Reason Start Date Expiration Date V isits Requested Visits Authorized [id number] Closed Consult, Test & Treat 05/19/2022 05/19/2023 1 1 Encounter Details Date Type Department Care Team (Late st Contact Info) Description 05/19/2022 Orders Only Dermatology at [facility] [address] [place] [address] Leonila Hills MD [facility] [address] [place] [address] Basal cell carcinoma (BCC) of left side of neck Social History Tobacco Use Types Packs/Day Years [...] 11:00 AM EDT Office Visit Dermatology at [facility] [address] [place] [address] Leonila Hills MD [facility] [address] [place] [address] Scheduled Referrals Name Type Priority Associated Diagnoses Order Schedule Referral to Dermatology Outpatient Referral Routine Basal cell carcinoma (BCC) of left side of neck Ordered: 05/19/2022 documented as of this encounter Visit Diagnoses Diagnosis Basal cell carcinoma (BCC) of left side of neck documented in this encounter Care Teams Engineering Director Relationship Specialty Start Date End Date Antolin Hutchins APRN [address] [place] [address] PCP - General Family Medicine 04/20/20 documented as of this encounter
--- OUTSIDE RECORDS SUMMARY | 2023-09-22 06:10 | XMS_ITS | Encounter Summary ---
Author Organization [facility] Address [address] [place] [address] Care Team Providers Care Oracle Technical Architect Name Role Phone Gerard Villalpando MD Primary Care Provider Unavail able Encounter Details Date Type Department Care Team (Late st Contact Info) Description 12/05/2012 Results Only [facility] Laboratory Services - [facility] ([facility]) [address] [place], [place] [address] Corey Wallace MD [address] [place] [address] Social History Tobacco Use Types [...] Date/Time Associated Diagnosis Comments SURGICAL PATHOLOGY Routine 12/05/2012 20 :44 EDT documented in this encounter Results * SURGICAL PATHOLOGY (12/05/2012 20:44 EDT) Pathology Report: SURGICAL PATHOLOGY REPORT Reports generated via electronic interface contain original data; however they are lacking the format of the original report. Caution should be taken when reading/interpreti ng unformatted reports. Name: ? ZHANNA YAN ? Accession #: ? [id number] ? : ? 1955 (Age: 57) ??F ? Collect Date: ? 12/05/2012 ? Location: ? [facility] ? Receive Date: ? 12/05/2012 ? Provider: COREY WALLACE MD Copy to: CHRIS GRIFFIN MD ? Final Pathologic Diagnosis: COLON, RIGHT, POLYP, BIOPSY: - ??Tubular adenoma. See comment. Comment: Deeper levels examined. Dr. Gee 12/07/2012 10:17 AM Document reviewed and electronically signed by: FRANCIA GEE MD Report ??Date: 12/07/2012 15:03 By the signature above, the attending physician certifies that he/she has personally conducted a gross and/or microscopic examination of the described specimens and rendered or confirmed the above diagnosis. Specimen(s) Received: Right colon polyp Clinical History: History of tubulovillous adenoma Gross Description: ? Received in formalin labelled with proper patient identification (initials D, R) and right colon polyp is a single light valenzuela tissue fragment (0.4 x 0.3 x 0.2 cm). Submitted intact in block 1. Taniya Patterson 12/06/2012 08:55 AM End of Report [facility] 12/05/2012 20:4 4 EDT 12/05/2012 20:44 EDT Corey Wallace MD PATHOLOGY ORDERABLES [facility] [address] [place] [address] documented in this encounter Visit Diagnoses Not on filedocumented in this encounter Care Teams Oracle Technical Architect Relationship Specialty Start Date End Date Gerard Villalpando MD PCP - General 11/12/10 12/09/12 documented as of this encounter
--- OUTSIDE RECORDS SUMMARY | 2023-09-22 06:10 | XMS_ITS | Encounter Summary ---
Author Organization [facility] Address [facility] [place] [address] Care Team Providers Care Cement And Concrete Plant Worker Name Role Phone Antolin Hutchins APRN Primary Care Provider [phone] Encounter Details Date Type Department Care Team (Latest Contact Info) Description 09/05/2023 Travel Social History Tobacco Use Types Packs/Day [...] 11:00 AM EDT Office Visit Dermatology at [facility] [address] [place] [address] Leonila Hills MD [facility] [address] [place] [address] documented as of this encounter Visit Diagnoses Not on filedocumented in this encounter Care Teams Cement And Concrete Plant Worker Relationship Specialty Start Date End Date Antolin Hutchins APRN [address] [place], [place] [id number] PCP - General Family Medicine 04/20/20 documented as of this encounter
--- OUTSIDE RECORDS SUMMARY | 2023-09-22 06:10 | XMS_ITS | Encounter Summary ---
Author Organization [facility] Address [address] [place] [address] Care Team Providers Care Turn Machine Operator Name Role Phone Unknown, Provider Primary Care Provider [phone] Encounter Details Date Type Department Care Team (Late st Contact Info) Description 01/11/2000 Results Only [facility] [address] [place] [address] Mary Grace Ji, [address] [place] [address] Social History Tobacco Use Types [...] Priority Date/Time Associated Diagnosis Comments CYTOPATHOLOGY Routine 01/11/2000 0:00 EST documented in this encounter Results * CYTOPATHOLOGY (01/11/2000 0:00 EST) Pathology Report: CYTOPATHOLOGY REPORT Reports generated via electronic interface contain original data; however they are lacking the format of the original report. Caution should be taken when reading/interpreti ng unformatted reports. Name: ? ZHANNA YAN ? Accession #: ? [id number] : ? 1955 (Age: 44) ??F ?Collect Date: ? 01/11/2000 Location: ? [facility] ? Receive Date: ? 01/14/2000 Provider: ?MARY GRACE JI MERINGUER Copy to: ? Specimen/Source: ?ThinPrep Pap Test, Cervix/Endocervix Last Menstrual Period: ? 01/04/00 Previous Gynecologic Pathology: ? ASC-US: cannot rule out LUTHER, hyperkeratosis Other: ? Additional clinical information: 1994, 1997, 1998 WNL ? SPECIMEN ADEQUACY ? Satisfactory for evaluation. GENERAL CATEGORIZATION ? Benign Cellular Changes DESCRIPTIVE DIAGNOSIS ? Predominance of coccobacilli present consistent with shift in vaginal souleymane. ? Document reviewed and electronically signed by: ? HERRERA Lang(ASCP) ? Report Date: ??01/17/2000 13:24 End of Report [facility] 01/11/2000 01/14/2000 Mary Grace Ji MERINGUER PATHOLOGY ORDERABLES Performing Organization Address City/State/[facility] Co de Phone Number ELISEO SUERO [address] [place] [address] documented in this encounter Visit Diagnoses Not on filedocumented in this encounter Care Teams Turn Machine Operator Relationship Specialty Start Date End Date Unknown, Provider, PCP - General 04/08/09 11/11/10 documented as of this encounter
--- OUTSIDE RECORDS SUMMARY | 2023-09-22 06:10 | XMS_ITS | Encounter Summary ---
Author Organization [facility] Address [address] [place] [address] Care Team Providers Care Rubber Goods Assembler Name Role Phone Charlie Graham MD Primary Care Provider [phone] Encounter Details Date Type Department Care Team (Latest Contact Info) Description 06/04/2018 12:55 EDT - 06/04/2018 23:59 EDT Hospital Encounter [address] [address] Unknown, Provider, Discharge Disposition: Home or Self Care Social History Tobacco Use Types Packs/Day Years Used Date Smoking Tobacco: Never Assessed Sex and Gender Information Value Date Recorded Sex Assigned at Not on file Gender Identity Not on file Sexual Orientation Not on file documented as of this encounter Discharge Disposition Disposition Code Departure Means Destination Home or Self Intermediate documented in this encounter Plan of Treatment Not on file documented as of this encounter Visit Diagnoses Not on filedocumented in this encounter Care Teams Rubber Goods Assembler Relationship Specialty Start Date End Date Charlie Graham MD PCP - General 12/10/12 documented as of this encounter
--- OUTSIDE RECORDS SUMMARY | 2023-09-22 06:10 | XMS_ITS | Encounter Summary ---
Author Organization [facility] Address [facility] [place] [address] Care Team Providers Care [employer] Compliance Internship Name Role Phone CuongAntolin Kiley GARZA Primary Care Provider [phone] Encounter Details Date Type Department Care Team (Latest Contact Info) Description 05/24/2022 9:45 AM EDT Clinical Support Dermatology at [address] [address] Pawel Mena MD [facility] [address]-[place] [address] Basal cell carcinoma (BCC) of left side of neck Social History Tobacco Use Types Packs/Day Years Used Date Smoking Tobacco: Never Smokeless Tobacco: Never Sex and Gender Information Value Date Recorded Sex Assigned at Not on file Gender Identity Not on file Sexual Orientation Not on file documented as of this encounter Progress Notes * [facility] Carreon, [facility] - 05/24/2022 9:45 AM EDT Mohs consultation and preoperative note (H&P) Patient Name: Zhanna Weaver Age: 67 y.o. Date of : 1955 Today's Date: 05/24/2022 REFERRING PROVIDER: Leonila Hills MD CC: Mohs micrographic surgery for treatment of a cutaneous tumor HPI: Zhanna Weaver is a 67 y.o. female presenting for biopsy-proven basal cell carcinoma, nodular pattern location on the left base of neck. The dermatologic preoperative information sheet was reviewed with pertinent positive and negative as below. DERMATOLOGIC PRE-OPERATIVE EVALUATION AND REVIEW OF SYSTEMS History of Mohs surgery? no If yes, have you ever had Mohs surgery with Dr. Mena? no Pacemaker/Defibrillator? no Joint replacement or other implantable devices (e.g. Cochlear implant)? If yes then when? no Do you take a blood thinner? No History of organ transplant? no History of artificial valve or stroke? no History of liver disease or bleeding disorder? no Do you have any medical problems that may affect your upcoming surgery? no Do you have any concerns regarding your upcoming surgery? no We ask patients to discontinue Fish oil/Multivitamin/Vit E/?? supplements and natural medicines not prescribed by a physician 1 week prior to surgery. SOCIAL HISTORY: Makes Own Decisions Yes Hearing aid or other devices: No Relevant travel history or future plans: none Tobacco use (amount per day, type of tobacco): no Do you have any physical limitations that may affect your surgery?: no ALLERGIES: Allergies reviewed MEDICATIONS: Medications reviewed documented in this encounter Plan of Treatment Upcoming Encounters Date Type Department Care Team (Late st Contact Info) Description 09/10/2024 11:00 AM EDT Office Visit Dermatology at [address] [place] [address] Leonila Hills MD [facility] [address] [address] documented as of this encounter Visit Diagnoses Diagnosis Basal cell carcinoma (BCC) of left side of neck documented in this encounter Care Teams [employer] Compliance [employer] Relationship Specialty Start Date End Date Antolin Hutchins APRN [address] [place] [address] PCP - General Family Medicine 04/20/20 documented as of this encounter
--- OUTSIDE RECORDS SUMMARY | 2023-09-22 06:10 | XMS_ITS | Encounter Summary ---
Author Organization [facility] Address [address] [place] [address] Care Team Providers Care Reading Interventionist Name Role Phone Unknown, Provider Primary Care Provider [phone] Encounter Details Date Type Department Care Team (Late st Contact Info) Description 12/01/2005 Results Only [facility] [address] [place] [address] Mary Grace Ji, [address] [place] [address] Social History Tobacco Use Types [...] Priority Date/Time Associated Diagnosis Comments CYTOPATHOLOGY Routine 12/01/2005 0:00 EDT documented in this encounter Results * CYTOPATHOLOGY (12/01/2005 0:00 EDT) Pathology Report: CYTOPATHOLOGY REPORT Reports generated via electronic interface contain original data; however they are lacking the format of the original report. Caution should be taken when reading/interpreti ng unformatted reports. Name: ? ZHANNA YAN ? Accession #: ? [id number] : ? 1955 (Age: 50) ??F ?Collect Date: ? 12/01/2005 Location: ? [facility] ? Receive Date: ? 12/02/2005 Provider: ?MARY GRACE JI PAIL BAILER Copy to: ? Specimen/Source: ?ThinPrep Pap Test, Cervix/Endocervix, processed on [employer] ThinPrep Imaging System, with manual evaluation Last Menstrual Period: ? 03/10 Previous Gynecologic Pathology: ? ASC-US: Benign cellular changes: 1999 Other: ? Additional clinical information: O 2002 HPVA - HPV testing requested if ASC-US on the current ThinPrep Pap test. ? SPECIMEN ADEQUACY ? Satisfactory for Evaluation - transformation zone component present GENERAL CATEGORIZATION ? Negative for Intraepithelial Lesion or Malignancy ? Document reviewed and electronically signed by: ? HERRERA Preston(ASCP) ? Report Date: ??12/07/2005 09:14 End of Report [facility] 12/01/2005 12/02/2005 Mary Grace Ji PAIL BAILER PATHOLOGY ORDERABLES [facility] [address] [place] [address] documented in this encounter Visit Diagnoses Not on filedocumented in this encounter Care Teams Reading Interventionist Relationship Specialty Start Date End Date Unknown, Provider, PCP - General 04/08/09 11/11/10 documented as of this encounter
--- OUTSIDE RECORDS SUMMARY | 2023-09-22 06:10 | XMS_ITS | Encounter Summary ---
Author Organization [facility] Address [facility] [place] [address] Care Team Providers Care Speedboat Driver Name Role Phone Antolin Hutchins APRN Primary Care Provider [phone] Encounter Details Date Type Department Care Team (Latest Contact Info) Description 04/27/2022 Travel Social History Tobacco Use Types Packs/Day [...] 11:00 AM EDT Office Visit Dermatology at [facility] [address] [place] [address] Leonila Hills MD [facility] [address] [place] [address] documented as of this encounter Visit Diagnoses Not on filedocumented in this encounter Care Teams Speedboat Driver Relationship Specialty Start Date End Date Antolin Hutchins APRN [address] [place], [place] [id number] PCP - General Family Medicine 04/20/20 documented as of this encounter
--- OUTSIDE RECORDS SUMMARY | 2023-09-22 06:10 | XMS_ITS | Encounter Summary ---
Author Organization [facility] Address [address] [place] [address] Care Team Providers Care Seed Potato Cutter Name Role Phone Chris Griffin MD Primary Care Provider [phone] Encounter Details Date Type Department Care Team (Late st Contact Info) Description 06/04/2018 Results Only [facility]- [facility] [phone] Hair Sweeney MD [facility] [address] Social History Tobacco Use Types [...] Date/Time Associated Diagnosis Comments SURGICAL PATHOLOGY Routine 06/04/2018 15 :25 EDT documented in this encounter Results * SURGICAL PATHOLOGY (06/04/2018 15:25 EDT) Pathology Report: SURGICAL PATHOLOGY REPORT Reports generated via electronic interface contain original data; however they are lacking the format of the original report. Caution should be taken when reading/interpreting unformatted reports. Name: ? ZHANNA YAN ? Accession #: ? [id number] ? : ? 1955 (Age: 63) ??F ? Collect Date: ? 06/04/2018 ? Location: ? [facility] ? Receive Date: ? 06/04/2018 ? Provider: HAIR SWEENEY MD Copy to: HCRIS GRIFFIN MD ? Final Pathologic Diagnosis: COLON, ASCENDING, POLYP, BIOPSY: - Tubular adenoma. See comment. Comment: Environmental Adviser slides of this case were reviewed at the intradepartmental consultation conference. Dr. Zuly Morton 06/05/2018 11:07 AM Document reviewed and electronically signed by: ZULY MORTON MD Report ??Date: 06/05/2018 16:13 By the signature above, the attending physician certifies that he/she has personally conducted a gross and/or microscopic examination of the described specimens and rendered or confirmed the above diagnosis. Specimen(s) Received: Ascending colon polyp Clinical History: History of polyps Gross Description: ? Received in formalin labelled with proper patient identification (initials D, R) and ascending colon polyp is a single pink-valenzuela tissue fragment (0.3 x 0.3 x 0.2 cm). Submitted intact in 1. STAR Zimmerman (ASCP) 06/04/2018 3:34 PM End of Report [facility] 06/04/2018 15:2 5 EDT 06/04/2018 15:25 EDT Hair Sweeney MD PATHOLOGY ORDERA BLES [facility] [address] [place] [address] documented in this encounter Visit Diagnoses Not on filedocumented in this encounter Care Teams Seed Potato Cutter Relationship Specialty Start Date End Date Chris Griffin MD PCP - General 12/10/12 documented as of this encounter
--- OUTSIDE RECORDS SUMMARY | 2023-09-22 06:10 | XMS_ITS | Encounter Summary ---
Author Organization [facility] Address [facility] [place] [address] Care Team Providers Care Strip Machine Operator Name Role Phone CuongAntolin Kiley GARZA Primary Care Provider [phone] Reason for Visit * Consultation (Routine) - Closed Specialty Diagnoses / Procedures Referred By Olinda price Referred To Contact Dermatology Diagnoses Basal cell carcinoma (BCC) of left side of neck Leonila Hills MD [facility] [address] [place] [address] Pawel Mena MD [facility] [address] [place] [address] Referral ID Status Reason Start Date Expiration Date V isits Requested Visits Authorized [id number] Closed Consult, Test & Treat 05/19/2022 05/19/2023 1 1 Encounter Details Date Type Department Care Team (Latest Contact Info) Description 05/24/2022 10:00 AM EDT Procedure visit Dermatology at [facility] [address] [place] [id number] Pawel Mena MD [facility] [address] [place] [address] Basal cell carcinoma (BCC) of left side of neck Social History Tobacco Use Types Packs/Day Years Used Date Smoking Tobacco: Never Smokeless Tobacco: Never Sex and Gender Information Value Date Recorded Sex Assigned at Not on file Gender Identity Not on file Sexual Orientation Not on file documented as of this encounter Last Filed Vital Signs Vital Sign Reading Time Taken Comments Blood Pressure 149/78 05/24/2022 9:45 AM EDT Pulse 77 05/24/2022 9:45 AM EDT Temperature - - Respiratory Rate - - Oxygen Saturation - - Inhaled Oxygen Concentration - - Weight - - Height - - Body Mass Index - - documented in this encounter Progress Notes * Pawel Mena MD - 05/24/2022 10:00 AM EDT Images from the original note were not included. Summary of Procedure(s): Site: Left base of neck (surgical site was marked and patient verified site with photograph) Tumor Type: Basal cell carcinoma, nodular pattern Stages to clear tumor: 1 Repair: Intermediate linear closure Images: The patient was asked to call with any issues and is aware that I am available 29/08 should questions arise. Pawel Mena MD Mohs Micrographic Surgery and Dermatologic Oncology Department of Dermatology Please note that I have reviewed the preoperative checklist from today's nursing visit including relevant social history and medications. I have reviewed the preoperative photos if available and the biopsy report. VITAL SIGNS: BP 149/78 (BP Location (NBP): Left arm, Patient Position: Sitting, BP Cuff Sizes: Adult (25-34 cm)) Pulse 77 PHYSICAL EXAMINATION: General: patient is awake, alert, oriented and in no acute distress. Skin: Focused examination of surgical site(s) performed which shows a well healed biopsy site. PHYSICIAN REVIEW OF REPORTS, RECORDS, IMAGES: 1) The accompanying pathology report(s) associated with aforementioned biopsy slide(s) were/was also reviewed. Assessment: Zhanna Weaver is a 67 y.o. female presenting for: 1. Biopsy-proven basal cell carcinoma, nodular pattern located on the left base of neck. Plan: 1. Findings from the biopsy report, today's clinical exam, and other pertinent details were reviewed with patient today. All questions were answered. 2. Discussed treatment options based on the above findings. We recommended Mohs micrographic surgery for treatment of this tumor. Mohs micrographic surgery was indicated due to patient, site and/or tumor characteristics (see operative report for specific indication). 3. We discussed risks, benefits, and alternative treatment options to the Mohs micrographic surgeryprocedure and pertinent information including but not limited to the following: ?? Risks include bleeding, infection, scar, recurrence, incomplete tumor removal or inability to cure with surgery alone if the tumor features are more aggressive than the initial pathology indicates. Occasionally, additional adjuvant treatments may be recommended. Additional risks include large wound, prolonged wound and healing, pain, swelling, bruising, increased appearance of vessels or worsening erythema of baseline skin; more rarely risks include damage to underlying structures such as nerves, cartilage, or muscle which could lead to temporary or permanent loss of sensation or motor function. ?? Benefit is precise tumor removal ?? If reconstruction is performed, it is specific to the patient and defect. ?? Discussed that the shape, size, depth of the wound is often not known until the tumor is clearedand thus the reconstruction options are sometimes not known until after tumor clearance. Occasionally, referrals to other providers may be recommended for reconstruction based on patient preference and need. ?? Reviewed the pros and cons of common reconstructions used for this tumor type, size, and location, and that reconstruction may lead to change in appearance. ?? Natural history of scar was discussed, including that the scar will continue to mature for 1-2 years. Recommended avoidance of special ointments or scar creams, and avoidance of direct sun exposure to the scar for optimal recovery. ?? Reviewed that there are some aspects of cosmesis that are dependent on patient's characteristicssuch as age, skin laxity/texture factors, inflammatory skin diseases such as rosacea, prior surgery/radiation, degree of actinic damage, smoking status, strength of the patient's immune system, diligent wound care, medications, and genetics. ?? Having Mohs surgery may lead to physical limitations for optimal healing, such as restricted physical activity and heavy lifting. 4. The nature of sun-induced photo-aging and skin cancers was discussed. Recommended sun avoidance when possible, especially peak hours of sun 10 am to 2pm, protective clothing such as wide-brimmed hats and long-sleeved clothing, and the use of SPF broad-spectrum sunscreen SPF 50 or higher. 5. Signs and symptoms of skin cancer reviewed. Patient to report any new, changing, or symptomatic lesions and follow up with his or her powder blender and pourer or other skin provider. 6. Discussed avoiding direct sun exposure to scars for best cosmetic result. Note initiated by SHO Sykes CCMA has performed the documentation for this encounter in the presence of and acting as a scribe for Dr. Mena. I performed the above scribed service and agree with the accuracy of the documentation in this encounter. Reviewed and signed by: Pawel Mena MD Dermatology [facility] * Pawel Mena MD - 05/24/2022 10:00 AM EDT Mohs micrographic Surgery Operative Report Patient name: Zhanna Weaver : 1955 Date: 05/24/2022 Staff Surgeon and Pathologist: Pawel Mena MD Nursing/Aluminum Boat Inspector(s): Kim Carreon [facility] Blood Collector (s): Valente Hernandez CMA Pre-operative diagnosis: Basal Cell Carcinoma Post-operative diagnosis: Same Location/Site: Left base of neck (surgical site was marked and patient verified site with photograph) Procedure: Mohs micrographic surgery Indication(s) for Mohs micrographic surgery: Anatomic location for tissue conservation Stages: 1 Preoperative size of tumor: 0.9 x 0.9 cm Stage I The nature and purpose of the procedure, associated risks, possible consequences and complications,and alternative forms of treatment were explained in detail. We reviewed the possible repairs basedon the clinical appearance of tumor but discussed that often the repair options may not be known until the tumor has camelia extirpated. Informed consent and permission to take photographs were obtained. The site was confirmed with the patient/authorized personal service representative/referring physician and/or a photograph form time of biopsy. A pre-operative time-out (procedural pause) was conducted with no unresolved discrepancies noted. Local anesthesia was obtained with 0.5 % lidocaine with 1:200,000 epinephrine. The surgical site was prepped and draped in the usual sterile manner. A 1-2 mm margin was excised around clinically evident tumor as a complete layer. Hemostasis was achieved by electrocoagulation. The excised tissue was oriented and divided into 2 sections, chromacoded, and submitted for frozen sections. The patient tolerated the procedure well and without complications. On my personal microscopic evaluation of the frozen sections, no residual tumor was identified on the deep or outer border of the sections. The final size of the defect after complete tumor removal was 2.0 x 1.5 cm, extending to level of subcutaneous tissue. Repair Operative Report Clinical Diagnosis: 2.0 x 1.5 cm surgical defect secondary to Mohs microscopically controlled excision Location/Site: Left base of neck Indication: repair of wound for anatomic/functional restorationism Procedure: Intermediate linear closure of Mohs defect French Instructor: SHO Sykes Due to the size and location of the defect resulting from the complete removal of the tumor, the postoperative risk of hemorrhage, infection, and the possibility of serious deformity from scarring, and in order to restore proper function and prevent loss of function, the defect was closed in the following manner. The nature and purpose of the procedure, associated risks, possible consequences, complications andalternative methods of treatment were explained to the patient in detail. An informed consent was obtained. The operative site was anesthetized with 0.5% lidocaine with 1:200,000 epinephrine. The site was prepped and draped in the usual sterile manner. Moderate undermining of the surrounding tissuewas performed for tension free closure as necessary and redundant tissue excised. The deep tissues were apposed and sutured with 3-0 Monocryl sutures and the epidermal edges were approximated with 3-0 Prolene running and/or interrupted sutures. The resulting intermediate linear closure measured 3.9cm. The surgical site was cleaned and white petrolatum with a pressure dressing was applied. The patient tolerated the procedure well and without complications and was given both verbal and written instruction on postoperative wound care. Suture removal in 14 days, patient plans to have removed closureto home. The patient was discharged in good condition. Total local anesthesia with 0.5 % lidocaine with 1:200,000 epinephrine used: 3 cc Pawel Mena MD Mohs Micrographic Surgery and Dermatologic Oncology Department of Dermatology [address] [place], [place] [id number] Note initiated by SHO Sykes CCMA has performed the documentation for this encounter in the presence of and acting as a scribe for Dr. Mena. I performed the above scribed service and agree with the accuracy of the documentation in this encounter. Reviewed and signed by: Pawel Mena Dermatology [facility] documented in this encounter Plan of Treatment Upcoming Encounters Date Type Department Care Team (Late st Contact Info) Description 09/10/2024 11:00 AM EDT Office Visit Dermatology at [place] [address] [place] [address] Leonila Hills [facility] [place] [address] documented as of this encounter Visit Diagnoses Diagnosis Basal cell carcinoma (BCC) of left side of neck documented in this encounter Care Teams Strip Machine Operator Relationship Specialty Start Date End Date Antolin Hutchins, KAYLA [address] [place] [address] [address] [place] [address] PCP - General Family Medicine 04/20/20 documented as of this encounter
--- OUTSIDE RECORDS SUMMARY | 2023-09-22 06:10 | XMS_ITS | Encounter Summary ---
Author Organization [facility] Address [address] [place] [address] Care Team Providers Care Metal Finish Inspector Name Role Phone Unknown, Provider Primary Care Provider Encounter Details Date Type Department Care Team (Late st Contact Info) Description 11/10/2010 Results Only [facility] - [facility] ([facility] [address] [place], [place] [phone] Corey Wallace MD [address] [place], [place] [id number] Social History Tobacco Use Types Packs/Day Years Used Date Smoking Tobacco: Never Assessed Sex and Gender Information Value Date Recorded Sex Assigned at Not on file Gender Identity Not on file Sexual Orientation Not on file documented as of this encounter Plan of Treatment Not on file documented as of this encounter Procedures Procedure Name Priority Date/Time Associated Diagnosis Comments SURGICAL PATHOLOGY Routine 11/10/2010 0:00 EDT documented in this encounter Results * SURGICAL PATHOLOGY (11/10/2010 0:00 EDT) Pathology Report: SURGICAL PATHOLOGY REPORT ? Reports generated via electronic interface contain original data; ? however they are lacking the format of the original report. ? Caution should be taken when reading/interpreti ng unformatted reports. ? Name: ? FARRAH, ZHANNA ? Accession #: ? [id number] ? : ? 1955 (Age: 55) ??F ? Collect Date: ? 11/10/2010 ? Location: ? [facility] ? Receive Date: ? 11/10/2010 ? Provider: COREY WALLACE MD ? Copy to: DUONG VERDIN MD ? Final Pathologic Diagnosis: ? Colon, transverse, polyp, biopsy: ? 1. ?Tubular adenoma (one piece). ? 2. ? Colonic mucosa with no specific pathologic features (one piece). ? Document reviewed and electronically signed by: ? Masatoshi Kida, MD ? Report ??Date: 11/12/2010 15:26 ? By the signature above, the attending physician certifies that he/she has ? personally conducted a gross and/or microscopic examination of the described ? specimens and rendered or confirmed the above diagnosis. ? Specimen(s) Received: ? Transverse colon polyp ? Clinical History: ? H/O colon adenomas ? Gross Description: ? Received in formalin labelled Zhanna Weaver and #1 ??transverse colon ?? polyp are two light valenzuela biopsies, each measuring 0.2 x 0.2 x 0.2 cm. ??The ? specimens are submitted intact in one cassette. ??(Jordan Patterson)/kmm ? End of Report ? [facility] 11/10/2010 11/10/2010 21: 28 EDT Corey Wallace MD PATHOLOGY ORDERABLES Performing Organization Address City/State/[facility] Co de Phone Number [facility] [address] [place] [address] documented in this encounter Visit Diagnoses Not on filedocumented in this encounter Care Teams Metal Finish Inspector Relationship Specialty Start Date End Date Unknown, Provider, PCP - General 04/08/09 11/11/10 documented as of this encounter
--- OUTSIDE RECORDS SUMMARY | 2023-09-22 06:10 | XMS_ITS | Encounter Summary ---
Author Organization [facility] Address [facility] [place] [address] Care Team Providers Care Ticket Broker Name Role Phone CuongAntolin gage KAYLA Primary Care Provider [phone]- [phone] Encounter Details Date Type Department Care Team (Late st Contact Info) Description 04/27/2022 10:15 AM EDT Office Visit Dermatology at [address] [address] Leonila Hills MD [facility] [address] [address] History of basal cell carcinoma (BCC); Seborrheic keratoses; Inflamed seborrheic keratosis; Multiple benign nevi of upper extremity, lower extremity, and trunk; Actinic keratoses; Neoplasm of unspecified behavior of bone, soft tissue, and skin; Eczema, unspecified type Social History Tobacco Use Types Packs/Day Years Used Date Smoking Tobacco: Never Smokeless Tobacco: Never Sex and Gender Information Value Date Recorded Sex Assigned at Not on file Gender Identity Not on file Sexual Orientation Not on file documented as of this encounter Progress Notes * Leonila Hills MD - 04/27/2022 10:15 AM EDT Images from the original note were not included. DEPARTMENT OF DERMATOLOGY Medical Dermatology Clinic Provider: Leonila Hills MD Patient's preferred name Zhanna Preferred contact method for results [x]?Phone []?myD-H []?Letter Detailed phone message OK? yes Are there any other people with whom we may discuss your care? Past Medical History Date, location, treatment Melanoma No Dysplastic nevi No SCC No BCC BCC on right waistline/ low back- excised 07/11/13 AKs Yes, cryotherapy UV Exposure & Protection N Other relevant past medical history ?? Family History Details Melanoma No NMSC No Other relevant family history No Social History History of Present Illness: Zhanna Weaver is a 67 y.o. Patient returns to clinic today for a fullskin cancer screening: - Dry spots on face that can be itchy. These have present for ~4 months. - Age spot on right lower leg that can be itchy. - Mild rash on left foot that can be slightly itchy to pt. She explains that this worsens when she wears socks and shoes for a long period. This occurs often Last visit at Dermatology: 04/23/2021 Last visit with this provider: 04/23/2021 Medications: Reviewed in eD-H Allergies: Reviewed in eD-H Skin Examination: Full skin examination: Patient asked to undress to their comfort level. Verbalized that the provider???s preference is that the patient remove all clothing and that the provider will not examine areas patient elects to keep covered. Patient elects to keep underwear on and have the following examined: scalp, hair, face, ears, neck, chest, axillae, abdomen, back, and upper and lower extremities. Genitalia and buttocks were not examined. Assessment/Plan # History of BCC - Well-healed scar on the right waistline/ low back per skin history. - No evidence of recurrence - Will continue to monitor. - Continue diligent sun protection #. Seborrheic Keratoses - Stuck on, waxy papules on the trunk and extremities. - Discussed benign nature of lesions and provided reassurance. No treatment necessary at this time. #. Inflamed Seborrheic Keratosis - Inflamed, stuck on, waxy papule on the right lateral thompson x1. - Discussed benign nature of lesion(s) and provided reassurance. - Due to irritation present on today's exam and history of symptoms, discussed removal with cryotherapy. - Patient elects to proceed with cryotherapy today. Procedure: Destruction of lesion(s) with cryotherapy (LN2). Location(s): As noted above Number: 1 Discussed procedure and expectations including risks and benefits. Verbal consent obtained. Treatedwith LN2. There were no complications; Patient tolerated the procedure well. Post-procedure expectations and wound care were reviewed. # Melanocytic Nevi- scattered brown macules and papules on trunk and extremities with reassuring pigment pattern on dermoscopy - Discussed benign appearing nevi based on today's exam - Recommended follow-up with dermatology if any changes in any pigmented lesions are noted or any concerns regarding new lesions arise. #. Eczema, favored, vs Tinea - Thin erythematous scaly plaque on the left lateral dorsal foot. Soleand interdigital spaces are clear - Given location, AUGIE was performed to r/o fungal involvement. - AUGIE skin scraping was negative for fungal elements. - Start Rx triamcinolone (Kenalog) 0.1% ointment: Apply topically to affected area(s) on the left foot twice daily for up to 2 weeks. Take 1 week off and then repeat cycle as needed. #. Actinic Keratoses - Ill-defined gritty papules on the right cheek x2, forehead x4, left cheek x1, right catholic x1, left supra eyebrow x1 - Explained premalignant potential of these lesions. - Discussed treatment with cryotherapy. Patient elects to proceed with cryotherapy today. - Instructed patient to return to clinic for re-evaluation if lesion(s) does not resolve as expected with this treatment. Procedure: Destruction of lesion(s) with cryotherapy (LN2). Location(s): As noted above. Number: 9 Discussed procedure and expectations, including risks and benefits. Verbal consent obtained. Treated with LN2. There were no complications; Patient tolerated the procedure well. Post-procedure expectations and wound care reviewed. #. R/o BCC - 5mm pink pearly eroded papule (figure 1) - Recommended a skin biopsy to confirm/clarify the nature of the skin lesion. After discussion of potential risks (scarring, bleeding, infection) and recurrence, patient agreed to proceed. - Patient denies known allergies to lidocaine and epinephrine. Procedure: Skin shave biopsy Location: Left base of neck Time of procedure: 10:24 AM Discussed indications for procedure and expectations including risks and benefits. Verbal consent obtained. Time out performed. Skin prepped with alcohol. Local anesthesia with 1% xylocaine, 1/100,000 epinephrine. A sample of the lesion was removed by shave technique to the level of the dermis and s ubmitted to Pathology. Hemostasis obtained (AlCl). There were no complications; patient tolerated the procedure well. Wound dressed. Post-procedure expectations, wound care and activity restrictions reviewed. - Follow-up based on pathology results. Figure 1 Photo(s) taken and charted with patient's verbal consent. Other: ??? N/A RTC: Pending pathology. Otherwise, n1 year FSE, Hx of BCC. Return sooner as needed []Note routed to statistical secretary [x]Recall placed in scheduling system []Appointment scheduled at checkout Scribe attestation: Shayla Rick [facility] has performed the documentation for this encounter in thepresence of and acting as a scribe for Leonila Hills MD. I performed the above scribed service and agree with the accuracy of the documentation in this encounter. Reviewed and signed by: Leonila Hills MD Dermatology [facility] * Leonila Hills MD - 04/27/2022 10:15 AM EDT DIAGNOSIS Left base of neck, skin shave biopsy: - ??Basal cell carcinoma, nodular pattern, ?? present at the deep specimen edge Recommend Mohs for BCC on the left base of neck (AUC 7). Fabian cid, can you please let her know? Thanks! documented in this encounter Plan of Treatment Upcoming Encounters Date Type Department Care Team (Late st Contact Info) Description 09/10/2024 11:00 AM EDT Office Visit Dermatology at [facility] [address] [place] [address] Leonila Hills MD [facility] [address] [address] documented as of this encounter Procedures Procedure Name Priority Date/Time Associated Diagnosis Comments SPECIMEN TO PATHOLOGY Routine 04/27/2022 10:31 AM EDT Neoplasm of unspecified behavior of bone, soft tissue, and skin SURGICAL PATHOLOGY REPORT Routine 04/27/2022 10:23 AM EDT documented in this encounter Results * Specimen to Pathology (04/27/2022 10:31 AM EDT) AP Specimen 04/27/2022 10:3 1 AM EDT 04/27/2022 10:31 AM EDT Narrative [facility] - 04/27/2022 10:31 AM EDT Specimen requisition ordered. ??Separate Pathology report to follow Leonila Hills MD PATHOLOGY/CYTOLOGY ORDERABLES [facility] [place] [address] * (ABNORMAL) Surgical Pathology Report (04/27/2022 10:23 AM EDT) Final Diagnosis [id number] ? Location: [facility] The signing pathologist has (i) examined the relevant preparation(s) for the specimen(s) and (ii) rendered or confirmed the diagnosis(es). . ?Surgical Pathology DIAGNOSIS Left base of neck, skin shave biopsy: - ??Basal cell carcinoma, nodular pattern, ?? present at the deep specimen edge Electronically signed by: ?Anabel Gonzalez MD Verified: ??05/13/2022 11:47 ??Dermatopathol ogist Performed at: ??-[facility], [place] [address] Web Production Assistant: Angela Parish MD, FCAP, ??CLIA Certificate: [id number] DISCUSSION THIS RESULT REQUIRES PHYSICIAN/A.P.P . FOLLOW UP SPECIMEN(S) SUBMITTED A - Left base of neck, skin shave biopsy (1) CLINICAL INFORMATION Rule out BCC-5 mm pink pearly eroded papule SPECIMEN PROCESSING A - Labeled/Fixativ e: Patient demographics, formalin. Quantity/Size: ??Single, 0.9 x 0.7 x 0.1 cm. Tissue Description: Shave of granular slightly domed valenzuela-bills skin. Sections/Proces sing: Inked, trisected and entirely submitted in 1 cassette labeled A1. ??pps(A) 05/13/2022 11:47 AM EDT [facility] SPECIMEN FROM SKIN / Unknown 04/27/2022 10:23 AM EDT 04/27/2022 10:23 AM EDT Leonila Hills MD PATHOLOGY/CYTOLOGY ORDERABLES [facility] [place] [id number] [facility] [place] [address] documented in this encounter Visit Diagnoses Diagnosis History of basal cell carcinoma (BCC) Seborrheic keratoses Inflamed seborrheic keratosis Multiple benign nevi of upper extremity, lower extremity, and trunk Actinic keratoses Actinic keratosis Neoplasm of unspecified behavior of bone, soft tissue, and skin Eczema, unspecified type documented in this encounter Care Teams Ticket Broker Relationship Specialty Start Date End Date Antolin Hutchins, RETAIL GREETER [address] [place] [address] PCP - General Family Medicine 04/20/20 documented as of this encounter
--- OUTSIDE RECORDS SUMMARY | 2023-09-22 06:10 | XMS_ITS | Encounter Summary ---
Author Organization [facility] [place] [address] Care Team Providers Care Repair Department Manager Name Role Phone CuongAntolin Kiley GARZA Primary Care Provider [phone]- [phone] Reason for Visit * Reason Comments Skin Cancer Examination Encounter Details Date Type Department Care Team (Late st Contact Info) Description 09/05/2023 11:00 AM EDT Office Visit Dermatology at [facility] [address] [place] [id number] Leonila Hills MD [facility] [address]ATIA[address] [place] [address] Inflamed seborrheic keratosis; History of nonmelanoma skin cancer; AK (actinic keratosis); SK (seborrheic keratosis); Tinea pedis, unspecified laterality Social History Tobacco Use Types Packs/Day Years Used Date Smoking Tobacco: Never Smokeless Tobacco: Never Sex and Gender Information Value Date Recorded Sex Assigned at Not on file Gender Identity Not on file Sexual Orientation Not on file documented as of this encounter Progress Notes * Leonila Hills MD - 09/05/2023 11:00 AM EDT Images from the original note [...] on right waistline/ low back- excised 07/11/13 BCC on left side neck base, s/p Mohs 05/2022 AKs Yes, cryotherapy UV Exposure & Protection N Other relevant past medical history Family History Details Melanoma No NMSC No Other relevant family history No Social History History of Present Illness: Zhanna Weaver is a 68 y.o. year old. Patient returns to clinic today for FSE - Patient denies any specific skin concerns today; no lesions that are new, changing or symptomatic. - She has a mole on the back that itches but she does not believe it is skin cancer - Rash on the foot- she treated with triamcinolone which did not help, but has been applying hydrocortisone and feels it has improved Last visit at [facility] Derm: 04/27/2022 Last visit with this provider: 04/27/2022 Medications: Reviewed in eD-H Allergies: Reviewed in eD-H Skin Examination: Full skin examination: Patient asked to undress to their comfort level. erbalized that the provider's preference is that patient removal all clothing and that the provider will not examine areas patient elects to keep covered. Patient elects to keep underwear on and have the following examined: scalp, hair, head, face, ears, neck, chest, axillae, abdomen, back, and left and right upper and lower extremities. Genitalia and buttocks were not examined. Assessment/Plan #. Actinic Keratosis - Ill-defined gritty papule on the right nasal tip x1. - Explained premalignant potential of these lesions. - Discussed treatment with cryotherapy. Patient elects to proceed with cryotherapy today. - Instructed patient to return to clinic for re-evaluation if lesion(s) does not resolve as expected with this treatment. Procedure: Destruction of lesion with cryotherapy (LN2). Location: As noted above. Number: 1 Discussed procedure and expectations, including risks and benefits. Verbal consent obtained. Treated with LN2. There were no complications; Patient tolerated the procedure well. Post-procedure expectations and wound care reviewed. #. Seborrheic Keratoses - Stuck on, waxy papules on the trunk and extremities. - Discussed benign nature of lesions and provided reassurance. No treatment necessary at this time. #. Inflamed Seborrheic Keratoses - Inflamed, stuck on, waxy papule on the left upper back. - Discussed benign nature of lesion(s) and [...] Post-procedure expectations and wound care were reviewed. #. Favor Tinea pedis - Thin erythematous scaly plaque on the left lateral dorsal foot. Sole and interdigital spaces are clear - Apply OTC Lotrimin-ultra BID for 14 days, message me photo if not improved in 14 days #. History of BCC - Well-healed scars per skin history. - No evidence of recurrence; will continue to monitor. Other items to document in the assessment/plan if relevant N/A RTC: 1 year for FSE []Note routed to certified legal secretary specialist []Recall has been placed in scheduling system [x]Appointment scheduled at checkout Scribe attestation: Kenzie Valdivia and Ju Hernandez RN have performed the documentation for this encounter in the presence of and acting as a scribe for Leonila Hills MD. I performed the above scribed service and agree with the accuracy of the documentation in this encounter. Reviewed and signed by: Leonila Hills MD Dermatology [facility] documented in this encounter Plan of Treatment Upcoming Encounters Date Type Department Care Team (Late st Contact Info) Description 09/10/2024 11:00 AM EDT Office Visit Dermatology at [facility] [address] [place] [address] Leonila Hills MD [facility] [address] [place] [address] documented as of this encounter Visit Diagnoses Diagnosis Inflamed seborrheic keratosis History of nonmelanoma skin cancer Personal history of other malignant neoplasm of skin AK (actinic keratosis) Actinic keratosis SK (seborrheic keratosis) Other seborrheic keratosis Tinea pedis, unspecified laterality documented in this encounter Care Teams Repair Department Manager Relationship Specialty Start Date End Date Antolin Hutchins, KAYLA [address] [place] [address] [address] [place] [address] PCP - General Family Medicine 04/20/20 documented as of this encounter
--- OUTSIDE RECORDS SUMMARY | 2023-09-22 06:11 | XMS_ITS | Encounter Summary ---
Author Organization [facility] [place] [address] Care Team Providers Care Meat Inspector Name Role Phone Charlie Graham MD Primary Care Provider [phone] Encounter Details Date Type Department Care Team (Late st Contact Info) Description 05/24/2016 Telephone Dermatology at [address] [address] Kimberly Ashby RN Social History Tobacco Use Types Packs/Day Years Used Date Smoking Tobacco: Never Sex and Gender Information Value Date Recorded Sex Assigned at Not on file Gender Identity Not on file Sexual Orientation Not on file documented as of this encounter Miscellaneous Notes * Telephone Encounter - Kimberly Ashby RN - 05/24/2016 11:32 AM EDT I called pt to discuss coolsculpting per her request during clinic visit with . Pt explains that she wishes to treat her lower abdomen just above her scar. We discussed treating with the coolmax vs. coolcore 1-2. I will need to see pt before making my final decision about treatment. Pt will call to schedule when she is ready to treat, ok to consult and treat on the same day. Kimberly Ashby RN documented in this encounter Plan of Treatment Upcoming Encounters Date Type Department Care Team (Late st Contact Info) Description 09/10/2024 11:00 AM EDT Office Visit Dermatology at [facility] [address] [place] [address] Leonila Hills MD [facility] [address] [place] [address] documented as of this encounter Visit Diagnoses Diagnosis Encounter for cosmetic procedure documented in this encounter Care Teams Meat Inspector Relationship Specialty Start Date End Date Charlie Graham MD [address] [place] [address] PCP - General 01/21/13 04/19/20 documented as of this encounter
--- OUTSIDE RECORDS SUMMARY | 2023-09-22 06:11 | XMS_ITS | Encounter Summary ---
Author Organization [facility] Address [facility] [place] [address] Care Team Providers Care Skip Loader Name Role Phone Charlie Graham MD Primary Care Provider [phone] Reason for Visit * Reason Comments Procedure Encounter Details Date Type Department Care Team (Latest Contact Info) Description 07/11/2013 3:00 PM EDT Procedure visit Dermatology at [facility] [address] [place] [address] Paola Escalante MD [facility] DR TATIANA [place] [address] Neoplasm of unspecified nature of bone, soft tissue, and skin (Primary Dx) Discharge Disposition: Home Social History Tobacco Use Types Packs/Day Years Used Date Smoking Tobacco: Never Sex and Gender Information Value Date Recorded Sex Assigned at Not on file Gender Identity Not on file Sexual Orientation Not on file documented as of this encounter Patient Instructions * Patient Instructions* Basil Jorgensen LPN - 07/11/2013 4:40 PM EDT Section of Dermatology Treatment and Wound Care Instructions Wound Care Instructions: POST OPERATIVE INSTRUCTIONS Wash your hands before changing the dressing. The dressing on the side should remain in place and dry until Monday, then dressing should then be removed gently. After removing the dressing, daily wound care should be performed as follows: ?? Clean the wound with warm water and pat dry gently. ?? Apply Vaseline or Aquaphor. ?? Cover the wound with a new dressing such as Telfa and tape or a Band-Aid. ?? Follow this regimen every day until your suture removal. For discomfort, you may take Tylenol. Avoid aspirin and ibuprofen, as they increase your risk of bleeding. If bleeding should occur, pressure should be applied constantly for 15 minutes on the dressing withthe help of a towel, wash cloth, or piece of gauze. If bleeding continues, repeat pressure for another 15 minutes. If this does not stop the bleeding, please call to clinic or go to an Emergency Room. A small amount of yellow drainage is part of normal healing, the wound is not considered healed until the drainage stops. It may take up to 3 - 4 weeks depending upon the area treated. Signs of infection include increasing tenderness or pain, drainage or redness that becomes hard or swollen surrounding the wound. If you notice any of these symptoms, please contact the clinic. It is important that you avoid strenuous and/or vigorous activities, heavy lifting (more than 5-10 lbs) and bending for a period of 2 weeks . The sutures should be removed in 10-14 days. If you have any questions, please contact the clinic during the day at . You may also contact your nurse: BASIL JORGENSEN LPN during the day at . In the case of urgency after 5PM and on weekends, please call the hospital number and ask for the Mechanical Engineering Manager public relations officer. Doctor Adnrae Nurse BASIL JORGENSEN LPN documented in this encounter Progress Notes * Andrae JamisonnelsyPaola Anastacia - 07/16/2013 6:24 PM EDTQuick Note: DERMATOLOGY - RESULT NOTE Spoke with Ms. 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 I explained to Ms. Yan that a Basal Cell Carcinoma (BCC) is a type of skin cancer, and that it was completely excised with the procedure performed on 07/11/13 and therefore no further treatment is required. Patient reassured. Ms. Yan reports her excision site is healing well without any signs of infection. Knows to call me if any problems arise or if she has any questions or concerns. I then discussed with her the nature of sun-induced skin cancers. Discussed the importance of sun protection, sun avoidance strategies, protective clothing (including wide brim hat), and use and frequent reapplication of a broad spectrum sunscreen with an SPF of >30. Patient was instructed to observe closely for any skin changes, and call if such occurs. Also advised to have a yearly skin exam. Will forward this note to our clinical medical secretary receptionist Ms. Ginny Tejeda to make sure pt is scheduled for a full skin exam one year after her last full skin exam. Paola Craig MD Resident in Dermatology [facility] * Paola Escalante - 07/15/2013 6:35 PM EDTQuick Note: Called patient to discussed pathology results. Unable to reach patient. Left voice message on cell phone requesting that pt call back to discuss results. Will try to call again. * Vianney Morel MD - 07/11/2013 11:12 PM EDT I directly supervised Dr. Ayala during this office visit. Dr. Ayala presented the history and physical exam to me. I then saw and examined this patient with Dr. Ayala. We reviewed the history and pertinent details and I confirmed the physical findings. I agree with the details of the history and physical exam as documented in Dr. Ayala's note. VIANNEY MOREL MD Staff Physician * Paola Escalante - 07/11/2013 4:43 PM EDT Images from the original note were not included. Dermatology Resident - Surgical Procedure Note Date of Service: 07/11/2013 Name: Long Yan : 1955 CC: Here for excision HPI: Ms. Yan is a 58 y.o. year old female, referred by Linda Buitrago for the excision of a suspiciouslesion on the right posterior waistline. No changes in her health or medications since last visit. Feeling well overall without complaints. Review of patient's medical and allergy history: - History of joint replacement within the last 2 years? denies - History of artificial heart valve(s)? denies - Pacemaker or defibrillator? denies - History of need for antibiotics prior to dental work? denies - Patient on blood thinners? no ?? Aspirin: denies ?? Coumadin: denies ?? Plavix: denies ?? Other: denies - Allergy to latex, iodine, lidocaine, or epinephrine? denies PMH: No past medical history on file. MEDS: No current outpatient prescriptions on file prior to visit. ALL: No Known Allergies ROS: Gen: Patient feeling well without complaint. Skin: As per HPI. No other skin concerns Physical Exam: - Constitutional: Patient was alert, well-appearing and in no noticeable distress. - Skin: A focalized skin exam of the right posterior waistline was performed. Specific skin findings: 1. Right posterior waistline next to midline: one 0.7 cm pink shiny plaque with pigment specks on dermoscopy (see pictures below) Verbal consent was given by patient to obtain and chart the following pictures: Assessment and Plan: 1. Neoplasm of Unspecified Nature of the Skin, Suspicious for Pigmented BCC (favored diagnosis), r/o Atypical Nevus, Right posterior waistline - Lengthy discussion with patient regarding diagnostic and treatment methods which include biopsy only today (for diagnosis only) vs. Excision (for diagnosis and possible treatment simultaneously) - Discussed risks and benefits of both including need for further procedures with the biopsy alone,and larger scar, possible unnecessary procedure and need for further procedure with the excision. - After lengthy discussion patient decided to proceed with an Excision and Intermediate Repair. - I then specifically discussed with her the risks of this procedure which include but are not limited to: bleeding, pain, infection, scarring, recurrence and need for further procedures. - After discussion of the above patient expressed understanding and voiced her wish to proceed (seeprocedure note below). Procedure Note: Procedure: Excision of favor malignant lesion Resident Surgeon: Paola Craig MD Partnership Development Manager: Basil Jorgensen LPN ?? Diagnosis: neoplasms of unspecified nature of the skin suspicious for pigmented BCC ?? Site: Right posterior waistline ?? Original lesion size: 0.7 cm ?? Margins: 0.3 cm ?? Total size (lesion + margin): 1.3 cm ?? Intermediate repair, length: 4.0 cm ?? Sutures: 4-0 monocryl and 4-0 prolene ?? Patient position: prone ?? Prep: chloroprep ?? Lidocaine used: 9 ml ?? Pad site: left calf ?? Dressing: pressure Nature and purpose of the procedure, expected benefits, possible alternative methods of treatment/diagnosis, risks and possibility of complications, and need for follow up were explained to patient. Verbal and written informed consent were obtained. Skin prepped and draped in sterile fashion. Time out was performed and agreed on prior to surgery by physican, nurse and patient. Local area was anesthetized using 1% lidocaine with 1/100,000 epinephrine. The excision was designed with clinically clear-appearing margins as noted above in order to removethe lesion. The lesion was excised down to the level of fat. Undermining of wound edges was performed to allow for appropriate approximation. An intermediate closure was required in order to close potential space and to reduce the risk of dehiscence. Hemostasis was achieved. A layered closure using was performed. Multiple buried absorbable sutures (4-0 monocryl) were placed to reappose deep fat. The epidermis and dermis were reapposed using monofilament suture (4-0 prolene). There were no complications; the patient tolerated the procedure well. Specimen to Pathology. The wound was dressed. Post-procedure expectations (including discomfort management), wound care and activity restrictions were reviewed at length with patient. Patient will be notified by letter or phone call of pathology results. Follow-up: 1. Suture removal: 10 to 14 days 2. RTC as scheduled with Primary Mechanical Engineering Manager: Dr. Buitrago. Paola Craig MD Resident in Dermatology [facility] Patient seen and evaluated with Staff Mechanical Engineering Manager: Mra Morel MD Section of Dermatology [facility] Level of Resident Supervision: Direct Supervision (The supervising physician is physically present with the resident and patient). documented in this encounter Plan of Treatment Upcoming Encounters Date Type Department Care Team (Late st Contact Info) Description 09/10/2024 11:00 AM EDT Office Visit Dermatology at [facility] [address] [place] [address] Leonila Hills MD [facility] DR TATIANA [place] [address] documented as of this encounter Procedures Procedure Name Priority Date/Time Associated Diagnosis Comments SPECIMEN TO PATHOLOGY (NON-OR) Routine 07/11/2013 4:47 PM EDT Neoplasm of unspecified nature of bone, soft tissue, and skin SURGICAL PATHOLOGY REPORT Routine 07/11/2013 4:47 PM EDT documented in this encounter Results * Surgical Pathology Report (07/11/2013 4:47 PM EDT) Final Diagnosis ? [facility] ? Provider: ?? ANDRAE CRAIG, ?? Pt. Name: ?? LONG YAN ?PAOLA MEMBRENO ? Acc #: ? Pt. ? Col Date: ?? 07/11/2013 ?/Sex: ?1955,(58 years),Female ? Rec Date: ?? 07/11/2013 ?LOC: ?[facility] ? SURGICAL PATHOLOGY ? ---Pathologic Diagnosis--- ? Skin, right posterior waistline, excision: ? Basal cell carcinoma, pigmented, margins appear negative. ? CR-0 ? Dictated by: ??Nessa Logan MD ? Dermatopathology Fellow ? As the attending physician, I attest that I examined the histologic slides, ? and confirm Dr. Nessa Logan' diagnosis. ? 07/12/13 ? BJM ? 07/15/13 Verified by: ? Abena Smith MD ? Dermatopathologist ? (Electronic Signature) ? The attending pathologist whose signature appears on this report has ? reviewed all diagnostic slides and has edited the gross and/or ? microscopic portion of the report in rendering the final pathologic ? diagnosis. ? ---Gross Description--- ? A - Labeled/Fixative: Patient demographics, formalin. ? Quantity/Size: Single, 2.6 x 1.3 x 0.6 cm. ? Tissue Description: Unoriented ellipse of valenzuela-bills skin with a central 0.7 ? x 0.5 cm plaque. ? Sections/Processing: The specimen is inked and serially sectioned. ? The ends are submitted in (1); the remainder in (2-4). (T4) ??pps ? ---Clinical Information--- ? Specimen Submitted: ? A - Right posterior waistline, excision (1) ? Clinical History: ? 0.7 cm pink shiny plaque with pigment specks on dermoscopy ? Clinical Diagnosis: ? Favor pigmented BCC vs. atypical nevus 07/15/2013 2:[address] [facility] SPECIMEN FROM SKIN / Unknown 07/11/2013 4:47 PM EDT 07/11/2013 4:47 PM EDT Paola Craig MD PATHOLOGY/C YTOLOGY ORDERABLES [facility] [place] [address] * Specimen to Pathology (NON-OR) (07/11/2013 4:47 PM EDT) AP Specimen 07/11/2013 4:47 PM EDT 07/11/2013 4:47 PM EDT Narrative PILL[facility] LOJA - 07/11/2013 4:47 PM EDT Specimen requisition ordered. ??Separate Pathology report to follow Vianney Morel MD PATHOLOGY/CYTOL OGY ORDERABLES [facility] documented in this encounter Visit Diagnoses Diagnosis Neoplasm of unspecified nature of bone, soft tissue, and skin- Primary documented in this encounter Care Teams Skip Loader Relationship Specialty Start Date End Date Charlie Graham MD [address] [place] [address] PCP - General 01/21/13 04/19/20 documented as of this encounter
--- OUTSIDE RECORDS SUMMARY | 2023-09-22 06:11 | XMS_ITS | Encounter Summary ---
Author Organization [facility] [place] [address] Care Team Providers Care Clinical Research Nurse Coordinator Name Role Phone Charlie Graham MD Primary Care Provider [phone] Reason for Visit * Reason Comments Skin Check Encounter Details Date Type Department Care Team (Late st Contact Info) Description 05/20/2016 9:30 AM EDT Office Visit Dermatology at [address] [address] Linda Buitrago MD [facility] DR TAT[address] [place] [address] [place] (actinic keratosis); Seborrheic keratoses, inflamed Social History Tobacco Use Types Packs/Day Years Used Date Smoking Tobacco: Never Sex and Gender Information Value Date Recorded Sex Assigned at Not on file Gender Identity Not on file Sexual Orientation Not on file documented as of this encounter Progress Notes * Linda Buitrago MD - 05/20/2016 9:30 AM EDT Date of office visit: 05/20/2016 Zhanna Weaver : 1955 Provider: Linda Buitrago MD SKIN HISTORY: BCC on right waistline/ low back- excised 07/11/13 Actinic keratosis HPI Zhanna Weaver is a 61 y.o. female. Established patient last seen by Dr. Trejo on 03/15/16 for a focused exam. She presents today for a full skin exam. She feels she is getting areas on the left side of her nose. She states the areas were scaly and rough but seems to be clear today. She was also interested in learning about cool sculpting. PAST MEDICAL HX There is no problem list on file for this patient. MEDS: No current outpatient prescriptions on file. No current facility-administered medications for this visit. ADR: Review of patient's allergies indicates no known allergies. FAMILY HX: Father had skin cancer, unsure what type SOCIAL HX: Works for [employer] ROS General: feeling well Skin: denies other skin complaints EXAM General: NAD, pleasant, cooperative. SKIN EXAM: Exam of scalp, ears, neck, face. Exam of chest, back, arms, hands. Exam of buttocks, suprapubic skin and hips. Exam of legs and feet. No exam of genitalia. Significant skin findings: 1. Left lateral nose x 2: 0.2-0.3cm scaly irregular pink papules 2. Left lateral chest, side wall under bra: irritated/excoriated 0.4-0.6cm brown papule with waxy, stuck-on appearance. ASSESSMENT/PLAN 1. Actinic Keratosis - I discussed this condition with the patient and explored therapeutic options. I recommended this be treated with LN2, patient is in agreement to this treatment plan. Instructed to call if areas do not resolve as expected or if problems arise. If lesions fail to resolve, further work-up may be needed. Procedure Note: Procedure: Destruction of lesion(s) with cryotherapy. Number: 2 Location: as above Discussed procedure and expectations including risks (including risk of hypopigmentation) and benefits. Verbal consent obtained. Frozen with LN2, 15-30 second thaw time, TWICE. There were no complications; the patient tolerated the procedure well. Post-procedure expectations and wound care were reviewed. 2. Inflamed Seborrheic Keratosis - I discussed this condition with the patient and explored therapeutic options. I recommended this be treated with LN2, patient is in agreement to this treatment plan. Instructed to call if areas do not resolve as expected or if problems arise. If lesions fail to resolve, further work-up may be needed. Procedure Note: Procedure: Destruction of lesion with cryotherapy. Number: 1 Location: as above Discussed procedure and expectations including risks (including risk of hypopigmentation) and benefits. Verbal consent obtained. Frozen with LN2, 15-30 second thaw time, TWICE. There were no complications; the patient tolerated the procedure well. Post-procedure expectations and wound care were reviewed. 3. Patient expressed interest in coolsculpting for caesarean scar on abdomen. Kimberly Ashby, RN will call to answer all questions. Return to clinic: RTC in 1 year, sooner if needed. Instructed to call if problems arise. I am documenting this encounter acting as the scribe for and in the presence of Dr. Buitrago: MARTA NEGRETE LPN, ORDER ENTRY REPRESENTATIVE and Angela Bennett, Clinical Scribe I reviewed and edited this note above, a scribed service performed by my nurse, and on closure of this note I agree with the accuracy of the documentation in this encounter. Linda Buitrago MD Section of Dermatology [facility] documented in this encounter Plan of Treatment Upcoming Encounters Date Type Department Care Team (Late st Contact Info) Description 09/10/2024 11:00 AM EDT Office Visit Dermatology at [address] [address] Leonila Hills MD [facility] [address] TATIANA [place] [address] documented as of this encounter Visit Diagnoses Diagnosis AK (actinic keratosis) Actinic keratosis Seborrheic keratoses, inflamed documented in this encounter Care Teams Clinical Research Nurse Coordinator Relationship Specialty Start Date End Date Charlie Graham MD [address] [facility] [place] [address] PCP - General 01/21/13 04/19/20 documented as of this encounter
--- OUTSIDE RECORDS SUMMARY | 2023-09-22 06:11 | XMS_ITS | Encounter Summary ---
Author Organization [facility] [place] [address] Care Team Providers Care Staff Software Engineer Name Role Phone Charlie Graham MD Primary Care Provider [phone] Reason for Visit * Reason Comments Skin Check Encounter Details Date Type Department Care Team (Late st Contact Info) Description 04/28/2014 11:00 AM EDT Follow-Up Dermatology at [facility] [address] [place] [address] Linda Buitrago MD [facility] [address] TATIANA [place] [address] [place] (actinic keratosis); BCC (basal cell carcinoma of skin) Discharge Disposition: Home Social History Tobacco Use Types Packs/Day Years Used Date Smoking Tobacco: Never Sex and Gender Information Value Date Recorded Sex Assigned at Not on file Gender Identity Not on file Sexual Orientation Not on file documented as of this encounter Progress Notes * Linda Buitrago MD - 04/28/2014 11:16 AM EDT Date of office visit: 04/28/2014 Zhanna Weaevr : 1955 Provider: Linda Buitrago MD SKIN HISTORY: BCC on right waistline/ low back- excised 07/11/13 HPI Zhanna Weaver is a 59 y.o. year old female her for a full skin exam. Dry spot under right eye forone month and a mole on left trunk that irritates occasionally. PAST MEDICAL HX 07/11/13 BCC MEDS: No current outpatient prescriptions on file. No current facility-administered medications for this visit. ADR: Review of patient's allergies indicates no known allergies. FAMILY HX: Father had skin cancer, unsure what type ROS General: feeling well Skin: denies other skin complaints EXAM General: NAD, pleasant, cooperative. SKIN EXAM: Exam of scalp, ears, neck, face. Exam of chest, back, arms, hands. Exam of buttocks, suprapubic skin and hips. Exam of legs and feet. No exam of genitalia. Significant skin findings: Scaling patch under right eye, medial Linear scar mid back - looks fine. ASSESSMENT/PLAN 1. Procedure Note: AK- cheek medial right Procedure: Destruction of lesion(s) with cryotherapy. Number: 1 Location: as above Discussed procedure and expectations including risks (including risk of hypopigmentation) and benefits. Verbal consent obtained. Frozen with LN2, 15-30 second thaw time, TWICE. There were no complications; the patient tolerated the procedure well. Post-procedure expectations and wound care were reviewed. 2. Discussed importance of sun protection, sun avoidance strategies, protective clothing, and sunscreen. I discussed warning signs for skin cancer, including the ABCE's of melanoma. 3. Hx of bcc- area looks fine, no new lesions. Return to clinic: One year reminder I am documenting this encounter acting as the scribe for and in the presence of Dr. Buitrago: Abena Cuba LPN, PRINTED CIRCUIT BOARD DRAFTER I reviewed and edited this note above, a scribed service performed by my nurse, and on closure of this note I agree with the accuracy of the documentation in this encounter. Linda Buitrago MD Section of Dermatology [facility] documented in this encounter Plan of Treatment Upcoming Encounters Date Type Department Care Team (Late st Contact Info) Description 09/10/2024 11:00 AM EDT Office Visit Dermatology at [facility] [address] [place] [phone] Leonila Hills MD [facility] [address] TATIANA [place] [address] documented as of this encounter Visit Diagnoses Diagnosis AK (actinic keratosis) Actinic keratosis BCC (basal cell carcinoma of skin) Basal cell carcinoma of skin, site unspecified documented in this encounter Care Teams Staff Software Engineer Relationship Specialty Start Date End Date Charlie Graham MD [address] [place] [address] PCP - General 01/21/13 04/19/20 documented as of this encounter
--- OUTSIDE RECORDS SUMMARY | 2023-09-22 06:11 | XMS_ITS | Encounter Summary ---
Author Organization [facility] [place] [address] Care Team Providers Care Home Care Coordinator Name Role Phone Charlie Graham MD Primary Care Provider [phone] Reason for Visit * Reason Comments Skin Check Encounter Details Date Type Department Care Team (Late st Contact Info) Description 05/15/2015 9:15 AM EDT Office Visit Dermatology at [address] [address] Linda Buitrago MD [facility] [address] TATIANA [place] [address] AK (actinic keratosis) Social History Tobacco Use Types Packs/Day Years Used Date Smoking Tobacco: Never Sex and Gender Information Value Date Recorded Sex Assigned at Not on file Gender Identity Not on file Sexual Orientation Not on file documented as of this encounter Progress Notes * Linda Buitrago MD - 05/15/2015 9:13 AM EDT DERMATOLOGY ESTABLISHED PATIENT CLINIC NOTE Date of service: 05/15/2015 Zhanna Weaver : 1955 Provider: Linda Buitrago MD SKIN HISTORY: BCC on right waistline/ low back- excised 07/11/13 Actinic keratosis Chief Complaint: Skin Cancer Exam HPI Zhanna Weaver is a 60 y.o. female here for a complete skin exam without any areas of concern. I switched my facial products to Rondan and Crystal,the spf is a 70. MEDS: No current outpatient prescriptions on file. No current facility-administered medications for this visit. ADR: No Known Allergies ROS General: feeling well Skin: denies other skin complaints EXAM General: NAD, pleasant, cooperative. Complete skin exam including scalp, face, ears, neck, arms, hands, back, anterior trunk, buttocks, legs, feet. Genitalia not examined. Skin: Significant skin findings: A.0.2-0.3cm scaly irregular pink papule on the right nasal tip B. light-valenzuela evenly pigmented, well-demarcated macule on the right superior paranasal area C. 0.4cm brown papule with waxy, stuck-on appearance on the left lateral chest wall ASSESSMENT/PLAN: A. Actinic Keratosis Procedure Note: Procedure: Destruction of lesion(s) with cryotherapy. Number: 1 (right nasal tip) Location: as above Discussed procedure and expectations including risks (including risk of hypopigmentation) and benefits. Verbal consent obtained. Frozen with LN2, 15-30 second thaw time, TWICE. There were no complications; the patient tolerated the procedure well. Post-procedure expectations and wound care were reviewed. B.Lentigines-discussed continuing with her sunscreen C.Seborrheic Keratosis -reassured D.RTC 1 yr Note initiated and routed to physician for review and change by: JONES TEE LPN I, Dr. Linda Buitrago, performed the visit service though my nurse assisted me in scribing the note. Ireviewed and edited this note above, a scribed service performed by my nurse. On closure of this note I agree with the accuracy of the documentation. Linda Buitrago MD Section of Dermatology [facility] documented in this encounter Plan of Treatment Upcoming Encounters Date Type Department Care Team (Late st Contact Info) Description 09/10/2024 11:00 AM EDT Office Visit Dermatology at [facility] [address] [place] [phone] Leonila Hills MD [facility] [address] TATIANA [place] [address] documented as of this encounter Visit Diagnoses Diagnosis AK (actinic keratosis) Actinic keratosis documented in this encounter Care Teams Home Care Coordinator Relationship Specialty Start Date End Date Charlie Graham MD [address] [place] [address] PCP - General 01/21/13 04/19/20 documented as of this encounter
--- OUTSIDE RECORDS SUMMARY | 2023-09-22 06:11 | XMS_ITS | Encounter Summary ---
Author Organization [facility] Address [facility] [place] [address] Care Team Providers Care Shoe Coverer Name Role Phone Charlie Graham MD Primary Care Provider [phone] Reason for Visit * Reason Comments Skin Lesion Encounter Details Date Type Department Care Team (Late st Contact Info) Description 03/15/2016 11:30 AM EST Office Visit Dermatology at [facility] [address] [place] [address] Jorge Trejo III, MD [facility] [address] [place] [address] AK (actinic keratosis) Social History Tobacco Use Types Packs/Day Years Used Date Smoking Tobacco: Never Sex and Gender Information Value Date Recorded Sex Assigned at Not on file Gender Identity Not on file Sexual Orientation Not on file documented as of this encounter Patient Instructions * Patient Instructions* Kim Carreon - 03/15/2016 11:30 AM EST Actinic Keratoses You have been diagnosed today with Actinic Keratosis (AK). These dry, scaly patches are considered the earliest stage in the development of skin cancer. In rare cases, an AK can progress to skin cancer. Because of this risk, AKs are usually treated. You were treated today with Liquid Nitrogen. This is the most common treatment for AKs. Liquid nitrogen is extremely cold, and freezes [...] weeks. Please contact the Dermatology clinic at [phone] if the lesion has not fully resolved after 6 weeks. documented in this encounter Progress Notes * Seth Hernandez LPN - 03/15/2016 11:30 AM EST DERMATOLOGY ESTABLISHED PATIENT CLINIC NOTE Date of service: 03/15/2016 Zhanna Weaver : 1955 Provider: Jorge Trejo MD PROBLEM: AK on forehead SKIN HISTORY: BCC on right waistline/ low back- excised 07/11/13 Actinic keratosis HPI Zhanna Weaver is a 60 y.o. year old female. Established patient of Dr. Buitrago, she is here today fora skin lesion that is a dry,flaky patch on her left forehead. It has been pink and scaling - tenderat times. ADR: No Known Allergies CURRENT MEDICATIONS: No current outpatient prescriptions on file. No current facility-administered medications for this visit. PROBLEM LIST: There is no problem list on file for this patient. ROS General: feeling well. Oriented X 3. Skin: denies other skin complaints EXAM General: NAD, pleasant, cooperative Skin: A focused exam of the face was performed. Significant skin findings: A. Left forehead (1) - 0.3cm scaly irregular pink patch ASSESSMENT/PLAN: A. Actinic Keratosis - left forehead (1) - I discussed this condition with the patient and exploredtherapeutic options. I recommended this be treated with [...] Post-procedure expectations and wound care were reviewed. Call if area does not resolve as expected or problems arise. The nature of sun-induced photo-aging and skin cancers is discussed. Sun avoidance, protective clothing, and the use of 30-SPF sunscreens is advised. Observe closely for skin damage/changes, and callif such occurs. RTC in May [address] Buitrago for full skin exam, sooner if needed. Appointment scheduled upon exit. Instructed to call if problems arise. Note initiated by: SETH HERNANDEZ LPN ? Kim Carreon, Clinical Scribe has performed the documentation for this encounter in the presenceof and acting as a scribe for Dr. Jorge Trejo. I performed the above scribed service and agree with the accuracy of the documentation in this encounter. I performed the above scribed service and agree with the accuracy of the documentation in this encounter. Jorge Trejo MD Section of Dermatology [facility] documented in this encounter Plan of Treatment Upcoming Encounters Date Type Department Care Team (Late st Contact Info) Description 09/10/2024 11:00 AM EDT Office Visit Dermatology at [facility] [address] [place] [address] Leonila Hills MD [facility] [address] [place] [address] documented as of this encounter Visit Diagnoses Diagnosis AK (actinic keratosis) Actinic keratosis documented in this encounter Care Teams Shoe Coverer Relationship Specialty Start Date End Date Charlie Graham MD [address] [facility] [address] [place] [address] PCP - General 01/21/13 04/19/20 documented as of this encounter
--- OUTSIDE RECORDS SUMMARY | 2023-09-22 06:11 | XMS_ITS | Encounter Summary ---
Author Organization [facility] [place] [address] Care Team Providers Care Trouble Locater Name Role Phone Charlie Graham MD Primary Care Provider [phone] Reason for Visit * Reason Onset Date Comments Other 09/23/2013 Telephone call Encounter Details Date Type Department Care Team (Late Contact Info) Description 09/23/[address] [facility] [address] [place] [address] Ginny Tejeda Other (Telephone call ) Social History Tobacco Use Types Packs/Day Years Used Date Smoking Tobacco: Never Sex and Gender Information Value Date Recorded Sex Assigned at Not on file Gender Identity Not on file Sexual Orientation Not on file documented as of this encounter Miscellaneous Notes * Telephone Encounter - Ginny Tejeda - 09/23/2013 3:45 PM EDT I left a voice message on patients home phone to call in regards to scheduling a follow up appointment with Dr. Linda Buitrago. documented in this encounter Plan of Treatment Upcoming Encounters Date Type Department Care Team (Late st Contact Info) Description 09/10/2024 11:00 AM EDT Office Visit Dermatology at [facility] [address] [place] [address] Leonila Hills MD [facility] [address] [place] [address] documented as of this encounter Visit Diagnoses Not on filedocumented in this encounter Care Teams Trouble Locater Relationship Specialty Start Date End Date Charlie Graham MD [address] [place] [address] PCP - General 01/21/13 04/19/20 documented as of this encounter
--- OUTSIDE RECORDS SUMMARY | 2023-09-22 06:11 | XMS_ITS | Encounter Summary ---
Author Organization [facility] [place] [address] Care Team Providers Care Double Cut Off Saw Operator Name Role Phone Charlie Graham MD Primary Care Provider [phone] Reason for Visit * Reason Comments Skin Check Encounter Details Date Type Department Care Team (Late st Contact Info) Description 05/01/2017 9:45 AM EDT Office Visit Dermatology at [address] [phone] Linda Buitrago MD [facility] [address] [place] [address] Solar lentigo; Seborrheic keratoses; Seborrheic keratosis; History of basal cell carcinoma Social History Tobacco Use Types Packs/Day Years Used Date Smoking Tobacco: Never Smokeless Tobacco: Never Sex and Gender Information Value Date Recorded Sex Assigned at Not on file Gender Identity Not on file Sexual Orientation Not on file documented as of this encounter Progress Notes * Linda Buitrago MD - 05/01/2017 9:45 AM EDT DERMATOLOGY ESTABLISHED PATIENT CLINIC NOTE Date of service: 05/01/2017 Zhanna Weaver : 1955 Provider: Linda Buitrago MD Preferred name: Zhanna Preferred contact method with results: [phone] Message with results on machine okay?: yes SKIN HISTORY: BCC on right waistline/ low back- excised 07/11/13 Actinic keratoses - LN2 Irritated seborrheic keratosis Solar lentigines Seborrheic keratoses?? Chief Complaint: Full skin cancer examination HPI Zhanna Weaver is a 62 y.o. female. Established patient, last seen myself on 05/20/16. She presentsto the clinic for a full skin exam. Patient has no concerning lesions today, nothing new, changing,growing, bleeding on its own or painful. MEDS: No current outpatient prescriptions on file. No current facility-administered medications for this visit. No Known Allergies SOCIAL HISTORY Works for [employer] Never smoked ROS General: feeling well Skin: denies other skin complaints EXAM General: NAD, pleasant, cooperative. Type of exam: Complete skin exam including scalp, face, ears, neck, arms, hands, back, anterior trunk, buttocks, legs, feet. Genitalia not examined. Skin: Significant skin findings: 1. Sun exposed areas: 0.3-0.6cm light-brown evenly pigmented, well-demarcated macules. 2. Multiple 0.4-0.6cm brown papules with waxy, stuck-on appearance. 3. Left lateral brow: 0.4-0.6cm brown papule with waxy, stuck-on appearance. 4. Right waistline/low back: well healed scar. ASSESSMENT/PLAN: 1. Solar Lentigines - Reassured about benign nature and natural history. - Sun avoidance, protective clothing and the use of SPF 30 sunscreen is advised. Observe closely for skin changes and call if such occurs. 2. Seborrheic Keratoses - Reassured about benign nature and natural history. 3. Seborrheic Keratosis - Reassured about benign nature and natural history. 4. H/o BCC - NER. RTC April 2018 for 1 year full skin exam, hx BCC - or sooner as needed. Note initiated and routed to physician for review and change by: JC LOVING is documenting this encounter acting as the scribe for and in the presence of Linda Buitrago MD I, Dr. Linda Buitrago, performed the visit service though my nurse assisted me in scribing the note. Ireviewed and edited this note above, a scribed service performed by my nurse. On closure of this note I agree with the accuracy of the documentation. Linda Buitrago MD Section of Dermatology [facility] documented in this encounter Plan of Treatment Upcoming Encounters Date Type Department Care Team (Late st Contact Info) Description 09/10/2024 11:00 AM EDT Office Visit Dermatology at [facility] [address] [place] [address] Leonila Hills MD [facility] [place] [address] documented as of this encounter Visit Diagnoses Diagnosis Solar lentigo Other dyschromia Seborrheic keratoses Seborrheic keratosis Other seborrheic keratosis History of basal cell carcinoma Personal history of other malignant neoplasm of skin documented in this encounter Care Teams Double Cut Off Saw Operator Relationship Specialty Start Date End Date Charlie Graham MD [address] [place] [address] PCP - General 01/21/13 04/19/20 documented as of this encounter
--- OUTSIDE RECORDS SUMMARY | 2023-09-22 06:11 | XMS_ITS | Encounter Summary ---
Author Organization [facility] [place] [place] [address] Care Team Providers Care Adult Health Clinical Nurse Specialist Name Role Phone Charlie Graham MD Primary Care Provider [phone] Reason for Visit * Reason Comments Skin Check Encounter Details Date Type Department Care Team (Late st Contact Info) Description 04/29/2013 9:00 AM EDT Office Visit Dermatology at [address] [address] Linda Buitrago MD [facility] [address] TATIANA [place] [address] Nevus (Primary Dx) Discharge Disposition: Home Social History Tobacco Use Types Packs/Day Years Used Date Smoking Tobacco: Never Assessed Sex and Gender Information Value Date Recorded Sex Assigned at Not on file Gender Identity Not on file Sexual Orientation Not on file documented as of this encounter Progress Notes * Ginny Tejeda - 06/05/2013 2:07 PM EDT I spoke to Ms. Weaver regarding her surgical appointment on 07/11/13 at 3:30pm. She is all set with this date/time. * Ginny Tejeda - 06/05/2013 1:51 PM EDT A surgical appointment has been scheduled for 07/11/13 at 3:30pm. * Ginny Tejeda - 05/20/2013 11:56 AM EDT I spoke to Ms. Weaver she is aware that I'm working on scheduling a surgical appointment, and I will call her at work per her request. * Ginny Tejeda - 05/20/2013 11:39 AM EDT I left a message for Ms. Weaver to call me on her home phone. * Ginny Tejeda - 05/20/2013 11:35 AM EDT I printed office note, and gave it to Zoie so she can have it reviewed for scheduling purposes. * Linda Buitrago MD - 04/29/2013 9:15 AM EDT Images from the original note were not included. DERMATOLOGY NEW PATIENT CLINIC NOTE Date of service: 04/29/2013 Zhanna Weaver : 1955 Provider: Linda Buitrago MD PROBLEM: Skin Cancer HPI Ms. Weaver is a 58 y.o. female here for a skin exam with concerns of a rough spot on the right cheek.She states she showed it to her PCP who treated it with ln2 and now it is gone . New patient; self-referred. No personal history of skin cancer. [place] trip [place], very [place]. ADR: Iodine-iodine containing MEDS: No current outpatient prescriptions on file prior to visit. ROS General: feeling well Skin: denies other skin complaints EXAM General: NAD, pleasant, cooperative Skin: A total body skin exam except for areas covered by underwear was performed. This includes examination of the skin of the face, ears, neck, chest, axillae, left and right upper and lower extremities, hands and feet, abdomen, and except the areas covered by underwear were not examined. Significant skin findings: A. Brown slightly pigmented macule on the anterior abdomen B. 4.5cm x 3cm papule half pink,half pigmented on the posterior waistline ASSESSMENT/PLAN: A. Nevus on abdomen-will monitor; slight pigment irregularity. I advised her to monitor too and if changing, to return earlier than 1 year f/u. B. Nevus- low back; this may have been traumatized and scarred, but she recalls no trauma. I advised removal and discussed excision. I-will schedule excision; will be with a member of our group. I discussed the expectations for excision and healing precautions. C. RTC 1 yr Tami ContiAIRCRAFT AVIONICS TECHNICIANCheo Buitrago MD Section of Dermatology [facility] documented in this encounter Plan of Treatment Upcoming Encounters Date Type Department Care Team (Late st Contact Info) Description 09/10/2024 11:00 AM EDT Office Visit Dermatology at [facility] [address] [place] [address] Leonila Hills MD [facility] [address] TATIANA [place] [address] documented as of this encounter Visit Diagnoses Diagnosis Nevus- Primary Benign neoplasm of skin, site unspecified documented in this encounter Care Teams Adult Health Clinical Nurse Specialist Relationship Specialty Start Date End Date Charlie Graham MD [address] [place] [address] PCP - General 01/21/13 04/19/20 documented as of this encounter
--- OUTSIDE RECORDS SUMMARY | 2023-09-22 06:11 | XMS_ITS | Encounter Summary ---
Author Organization [facility] Address [facility] [place] [address] Care Team Providers Care Sagger Maker Name Role Phone Charlie Graham MD Primary Care Provider [phone] Encounter Details Date Type Department Care Team (Late st Contact Info) Description 07/02/2013 Orders Only Dermatology at [facility] [address] [place] [address] Pepper Escalante MD [facility] [address] [place] [address] Social History Tobacco Use Types Packs/Day Years Used Date Smoking Tobacco: Never Assessed Sex and Gender Information Value Date Recorded Sex Assigned at Not on file Gender Identity Not on file Sexual Orientation Not on file documented as of this encounter Progress Notes * Aliza Bishop LPN - 07/02/2013 10:36 AM EDT Labels printed for upcoming surgical procedure on 07/11/13 with Pepper Bishop LPN documented in this encounter Plan of Treatment Upcoming Encounters Date Type Department Care Team (Late st Contact Info) Description 09/10/2024 11:00 AM EDT Office Visit Dermatology at [facility] [address] [place] [address] Leonila Hills MD [facility] [address] T[address]IANA [place] [address] documented as of this encounter Visit Diagnoses Not on filedocumented in this encounter Care Teams Sagger Maker Relationship Specialty Start Date End Date Charlie Graham MD [address] [place] [address] PCP - General 01/21/13 04/19/20 documented as of this encounter
--- OUTSIDE RECORDS SUMMARY | 2023-09-22 06:11 | XMS_ITS | Encounter Summary ---
Author Organization [facility] Address [facility] [place] [address] Care Team Providers Care Grape Cutter Name Role Phone Charlie Graham MD Primary Care Provider [phone] Reason for Visit * Reason Comments Skin Lesion Encounter Details Date Type Department Care Team (Late st Contact Info) Description 08/18/2014 8:30 AM EDT Follow-Up Dermatology at [place] [address] [place] [address] [facility] [address] TATIANA [place] [address] Neoplasm of unspecified nature of bone, soft tissue, and skin Discharge Disposition: Home Social History Tobacco Use Types Packs/Day Years Used Date Smoking Tobacco: Never Sex and Gender Information Value Date Recorded Sex Assigned at Not on file Gender Identity Not on file Sexual Orientation Not on file documented as of this encounter Patient Instructions * Patient Instructions* Leonila Garner - 08/18/2014 8:51 AM EDT You had a biopsy of your skin (removal of a small piece of tissue for examination under a microscope). Keep area covered and moist with a band aid and Vaseline, change daily. The results will be available in about 7 days. Your doctor or nurse will tell you the results by phone or letter and plan any follow up treatment if necessary. documented in this encounter Progress Notes * Linda Fernandes MD - 08/18/2014 8:20 AM EDT Date of office visit: 08/18/2014 [place] : 1955 Provider: Linda Fernandes MD SKIN HISTORY: BCC on right waistline/ low back- excised 07/11/13 Actinic keratosis HPI Long Yan is a 59 y.o. year old female established patient last seen by me on 04/28/2014. Patient presents for spot check of her face. Patient reports she has raised, brown, itchy bums on her left shinto present for a few months. She denies any tender or bleeding, no pain. Upon exam today, shesays it is a little tender, and she might have scratched at it. She has no other skin concerns today . She has been healthy and well overall since last visit. PAST MEDICAL HX There is no problem list on file for this patient. MEDS: No current outpatient prescriptions on file. No current facility-administered medications for this visit. ADR: Review of patient's allergies indicates no known allergies. SH Son is an emergency room doctor in [place], [place] 3 grandsons ROS General: feeling well Skin: denies other skin complaints EXAM General: NAD, pleasant, cooperative. SKIN EXAM: Exam of scalp, ears, neck, face. Significant skin findings: 1. Red papule, slightly pigmented, 3 mm on left shinto ASSESSMENT/PLAN 1. ISK rule out BCC - Discussed the following treatment options: punch biopsy to test for BCC, or wait and watch. Patient has elected to remove it. - Discussed removing the brown spots on left shinto on next visit using liquid nitrogen. Procedure: Skin biopsy by punch technique. Location: left shinto Discussed indications for the procedure and expectations including risks and benefits. Verbal consent obtained. Skin prep with alcohol. Local anesthesia: buffered 1% lidocaine with 1/100,000 epinephrine. A 3 mm punch biopsy to the level of the subcutis was performed. Wound closed with monofilament suture. There were no complications; the patient tolerated the procedure well. The wound was dressed. Post-procedure expectations (including discomfort management), wound care and activity restrictions were reviewed. Follow-up based on pathology results. Suture removal: 5-7 days Return to clinic: PRN and in April 2015 for full skin exam. I am documenting this encounter acting as the scribe for and in the presence of Dr. Fernandes: Veronica Mcgregor LPN I reviewed and edited this note above, a scribed service performed by my nurse, and on closure of this note I agree with the accuracy of the documentation in this encounter. Linda Fernandes MD Section of Dermatology [facility] documented in this encounter Plan of Treatment Upcoming Encounters Date Type Department Care Team (Late st Contact Info) Description 09/10/2024 11:00 AM EDT Office Visit Dermatology at [facility] [address] [place] [address] [facility] [address] TATIANA [place] [address] documented as of this encounter Procedures Procedure Name Priority Date/Time Associated Diagnosis Comments SPECIMEN TO PATHOLOGY (NON-OR) Routine 08/18/2014 9:06 AM EDT Neoplasm of unspecified nature of bone, soft tissue, and skin SURGICAL PATHOLOGY REPORT Routine 08/18/2014 9:06 AM EDT documented in this encounter Results * Surgical Pathology Report (08/18/2014 9:06 AM EDT) Final Diagnosis ? [facility] ? Provider: ?? LINDA FERNANDES ?Pt. Name: ?? LONG YAN ? Acc #: ?[id number] ? Pt. ? Col Date: ?? 08/18/2014 ? /Sex: ?1955,(59 years),Female ? Rec Date: ?? 08/18/2014 ? LOC: ?[facility] ? SURGICAL PATHOLOGY ? ---Pathologic Diagnosis--- ? 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 proliferation, see comment ? CR-0 ? 08/19/14 ? BJM ? 08/21/14 Verified by: ? Ena BARONE, Georges Abreu ? Dermatopathologis t, Bone & Soft Tissue ? Pathologist ? (Electronic Signature) ? The attending pathologist whose signature appears on this report has ? reviewed all diagnostic slides and has edited the gross and/or ? microscopic portion of the report in rendering the final pathologic ? diagnosis. ? ---Comment--- ? Sections show suppurative and granulomatous inflammation within the dermis ? and an endophytic keratinocytic proliferation with bland cytology. These ? histologic features most likely represent the sequela of a ruptured cyst ? although no cyst wall is identified in multiple deeper sections. In any ? case there is no evidence of malignancy. Luis E, PAS/f and AFB special stains ? are negative for malignancy. Dr. Green has reviewed this case and concurs ? with this diagnosis. ? ---Gross Description--- ? A - Labeled/Fixative: Patient demographics, formalin. ? Quantity/Size: Single, 0.3 cm. ? Tissue Description: Punch of pink-white brown skin. ? Sections/Processi ng: (T1) ??sns ? ---Clinical Information--- ? Specimen Submitted: ? A - Skin, left shinto, punch (1) ? Clinical History: ? 3 mm red papule, slightly pigmented ? Clinical Diagnosis: ? ISK, rule out BCC 08/21/2014 5:29 PM EDT [facility] SPECIMEN FROM SKIN / Unknown 08/18/2014 9:06 AM EDT 08/18/2014 9:06 AM EDT Linda Fernandes MD PATHOLOGY/CYTOLOGY [place] Performing Organization Address City/[facility] Co de Phone Number PILLO LOJA [facility] [place] [address] * Specimen to Pathology (NON-OR) (08/18/2014 9:06 AM EDT) AP Specimen 08/18/2014 9:06 AM EDT 08/18/2014 9:06 AM EDT Narrative PILLO LOJA - 08/18/2014 9:06 AM EDT Specimen requisition ordered. ??Separate Pathology report to follow Linda Fernandes MD PATHOLOGY/CYTOLOGY [place] Performing Organization Address City/[facility] Co de Phone Number PILLO LOJA documented in this encounter Visit Diagnoses Diagnosis Neoplasm of unspecified nature of bone, soft tissue, and skin documented in this encounter Care Teams Grape Cutter Relationship Specialty Start Date End Date Charlie Graham MD [address] [place] [address] PCP - General 01/21/13 04/19/20 documented as of this encounter
--- OUTSIDE RECORDS SUMMARY | 2023-09-22 06:11 | XMS_ITS | Encounter Summary ---
Author Organization [facility] Address [facility] [place] [address] Care Team Providers Care Laborer [employer] Name Role Phone Charlie Graham MD Primary Care Provider [phone] Reason for Visit * Reason Onset Date Comments Pre Procedure Call 07/03/2013 Encounter Details Date Type Department Care Team (Late st Contact Info) Description 07/03/2013 Telephone Dermatology at [facility] [address] [place] [address] Aliza Bishop LPN Pre Procedure Call Social History Tobacco Use Types Packs/Day Years Used Date Smoking Tobacco: Never Assessed Sex and Gender Information Value Date Recorded Sex Assigned at Not on file Gender Identity Not on file Sexual Orientation Not on file documented as of this encounter Miscellaneous Notes * Telephone Encounter - Aliza Bishop LPN - 07/03/2013 1:04 PM EDT Pre - OP Excision Phone Call Date of Call: 07/03/2013 Spoke with Zhanna Meg by phone to review the following instructions: Review of medications: Instructed to take all meds as directed. Review of Medical history: Does not take antibiotics for dental work. Does not have any cardiac issues, murmurs or valve replacements. Does not have a pacemaker or defibulator. Has not had a total joint replacement with in the last 2 years. instructed to eat and drink morning of procedure. Recommend that she be accompanied by someone who can drive her home. Discuss length of procedure and time variables. Post op instructions reviewed.Physical limitations discussed. Given phone number [phone] should questions arise before or after procedure. Zhanna Weaver states that she understands all of the above. Patient states she does not have an allergy to Iodine and asked me to removed it from her allergy list. Aliza Bishop LPN documented in this encounter Plan of Treatment Upcoming Encounters Date Type Department Care Team (Late st Contact Info) Description 09/10/2024 11:00 AM EDT Office Visit Dermatology at [place] [address] [place] [address] Leonila Hills MD [facility] DR TATIANA [place] [address] documented as of this encounter Visit Diagnoses Not on filedocumented in this encounter Care Teams Laborer [employer] Relationship Specialty Start Date End Date Charlie Graham MD [address] [place] [address] PCP - General 01/21/13 04/19/20 documented as of this encounter
--- OUTSIDE RECORDS SUMMARY | 2023-09-22 06:11 | XMS_ITS | Encounter Summary ---
Author Organization [facility] [place] [address] Care Team Providers Care Dye Blender Name Role Phone Charlie Graham MD Primary Care Provider [phone] Encounter Details Date Type Department Care Team (Late st Contact Info) Description 07/16/2013 Telephone Dermatology at [facility] [address] [place] [address] Pepper Escalante MD [facility] [address] TATIANA [place] [address] Social History Tobacco Use Types Packs/Day Years Used Date Smoking Tobacco: Never Sex and Gender Information Value Date Recorded Sex Assigned at Not on file Gender Identity Not on file Sexual Orientation Not on file documented as of this encounter Miscellaneous Notes * Telephone Encounter - Pepper Escalante - 07/16/2013 6:17 PM EDT Returned pt call. Please refer to today's result note for further details. Pepper Puga MD Resident in Dermatology [facility] * Telephone Encounter - Kimberly Ruby - 07/16/2013 2:[address] Neal Ms. Meg returned your call, please call her at [phone]. Thanks Kimberly documented in this encounter Plan of Treatment Upcoming Encounters Date Type Department Care Team (Late st Contact Info) Description 09/10/2024 11:00 AM EDT Office Visit Dermatology at [facility] [address] [place] [address] Leonila Hills MD [facility] [address] TATIANA [place] [address] documented as of this encounter Visit Diagnoses Not on filedocumented in this encounter Care Teams Dye Blender Relationship Specialty Start Date End Date Charlie Graham MD [address] [place] [address] PCP - General 01/21/13 04/19/20 documented as of this encounter
[2023-09-22 06:27] VITALS: BP 106/85; PULSE 81; RESP 16; TEMP 36.5; O2SAT 96
[2023-09-22] MEDS: Lactated Ringers 1,000 ML 80 ML IV (06:46)
--- NOTE | 2023-09-22 07:06 | W.ANESPRE ---
General Info Date of Service Date Performed: 09/22/23 Height: 5 ft 7 in Weight: 87 kg Body Mass Index (BMI): 30.0 Surgical Procedure: Operation Date: 09/22/23 07:35 Proposed Procedure Side Surgeon daniel Booker, Meds Allergies and Home Medications Allergies Allergy/AdvReac Type Severity Reaction Status Date / Time phenylephrine AdvReac Severe N/V Verified 09/22/23 06:26 pseudoephedrine AdvReac Intermediate N/V Verified 09/22/23 06:26 Home Medication ?Medication ?Instructions ?Recorded estradiol 10 mcg vaginal tablet 10 mcg vaginal .three times weekly 04/24/23 #36 tabs Current Visit Medications: Current Medications Generic Name Dose Route Start Last Admin Trade Name Freq PRN Reason Stop Dose Admin Hyoscyamine Sulfate 0.125 mg 09/22/23 11:58 Hyoscyamine 0.125 Mg Sl/Oral/Chew SL 10/22/23 11:57 DIRECTED PRN Ringer's Solution 1,000 mls @ 80 mls/hr 09/22/23 06:00 09/22/23 06:46 IV 09/22/23 23:59 80 mls/hr INFUSION LAST Administration IV Miscellaneous Supplies 1 each 09/22/23 06:00 Iv Access IV 09/22/23 23:59 DIRECTED LAST Ondansetron HCl 4 mg 09/22/23 11:58 Ondansetron 4 Mg/2 Ml Vial IVP 10/22/23 11:57 Q4H PRN PRN Nausea / Vomiting Sodium Chloride 0 ml 09/22/23 06:00 Normal Saline Flush 10 Ml Syr IV 09/22/23 23:59 PRN PRN Sodium Chloride 0 ml 09/22/23 06:00 Normal Saline 10 Ml Vial IJ 09/22/23 23:59 DIRECTED PRN Sterile Water 0 ml 09/22/23 06:00 Water,Injection,Sterile 10 Ml Vial IJ 09/22/23 23:59 DIRECTED PRN PFSH Active Problems Active Problems: Problem Status Onset Code Family history of malignant neoplasm of colon in first degree relative diagnosed when younger than 60 years of age Acute Z80.0 Visit for suture removal Acute Z48.02 Plantar fasciitis Acute M72.2 Asymmetrical sensorineural hearing loss Acute H90.5 Atrophic vaginitis Acute 03/15/11 N95.2 Medical History Medical History Polyp of colon 04/15 COLONOSCOPY: ONE TUBULOVILLOUS ADENOMA AND TWO TUBULAR ADENOMAS. 11/10/10 COLONOSCOPY; 1 T.A. 12/05/12 AWAITING PATH REPORT tubulovillous adenoma Surgical History Surgical History Ligation of fallopian tube section Oophrectomy, Both (~2002) [facility] for cystic ovarian masses Colonoscopy - [facility] 12/05/12 Tobacco Smoking/Tobacco Use Status: Never Passive smoking exposure: Yes Second hand exposure: Yes Alcohol Alcohol Intake: current Alcohol intake frequency: a few times a week Alcohol type: wine and hard liquor Substance Use Substance use: Never Substance use type: does not use Vital Signs and Lab Results Vital Signs Most Recent Vital Signs in EMR: Most Recent Vital Signs Temp Pulse Resp BP Pulse Ox 36.5 C 81 16 106/85 96 09/22/23 06:27 09/22/23 06:27 09/22/23 06:27 09/22/23 06:27 09/22/23 06:27 Lab Results Blood Type / Crossmatch: No Data to Display Complete Blood Count: No Data to Display Complete Metabolic Panel: No Data to Display Liver Function Panel: No Data to Display Coagulation Panel: No Data to Display Cardiac Panel: No Data to Display Arterial Blood Gas: No Data to Display Venous Blood Gas: No Data to Display Pancreas Panel: No Data to Display Thyroid Panel: No Data to Display Infectious Disease: No Data to Display Blood Cultures: No Data to Display Toxicology Panel: No Data to Display Anesthesia Assessment and Plan Anesthesia History Personal History: No History of Anesthesia Complications Family History: No Family History of Anesthesia Complications Exercise Tolerance Exercise Tolerance: Metabolic Equivalents>4 Pertinent Negatives Pertinent Negatives: No Symptoms of GERD, No Major Cardiovascular Symptoms or Complaints and No Major Pulmonary Symptoms or Complaints Cardiac & Pulmonary Exam Cardiac Exam: Normal S1/S2 Heart Sounds Pulmonary Exam: Clear Bilateral Breath Sounds Implantable Cardiac Device Does patient have a Pacemaker or an ICD?: No Airway Exam Known Difficult Airway: No Mallampati Class: 2 Mouth Opening: Normal (> 3cm) Thyromental Distance: Greater than 3 cm Neck Range of Motion: Full ROM Neck Circumference: Normal Teeth Condition: Normal Dentition ASA Classification ASA Score: ASA 2 Emergency Case?: No NPO Status NPO Status: NPO Clears >2 hours, Solids >8 hours Anesthesia Plan Resuscitation Status: Full Code Anesthesia Technique: General Anesthesia Airway Planned: Natural Airway Monitors Used: Standard Monitors
--- NOTE | 2023-09-22 07:59 | BOWEL_PTH ---
PATIENT: Zhanna Weaver LOC: [facility] U#:[id number] AGE/SX: 68/F ROOM: RE09/22/[address]: Frannie Booker : 1955 BED: DIS: 09/22/2023 SPEC #: [id number] RECD: 09/22/23 12:42 STATUS: MONALISA REQ #: [id number] CHELY: 09/22/23 07:[address]: Frannie Booker DEPT: Surgical Specimen RECD BY: Maryjane Fulton ENTERED: 09/22/23 12:43 SP TYPE: Bowel OTHR DR: Antolin Hutchins, [employer]IED HEALTH TE[employer]ER Tissues: 1 - BIOPSY BOWEL Procedures: GROSS AND MICRO LEVEL 4 Comments: [id number]
[2023-09-22 08:08] VITALS: BP 119/95; PULSE 79; RESP 16; TEMP 35.9; O2SAT 98
[2023-09-22 08:31] VITALS: BP 115/72; PULSE 75; RESP 16; TEMP 36.5; O2SAT 98
--- NOTE | 2023-09-22 08:57 | W.ANESPOSTOP ---
Postoperative Evaluation Date, Time and Location Date Performed: 09/22/23 Time Performed: 08:58 Patient Location: Day Surgery Unit Vital Signs Most Recent Imported Vital Signs: Most Recent Vital Signs Temp Pulse Resp BP Pulse Ox 36.5 C 75 16 115/72 98 09/22/23 08:31 09/22/23 08:31 09/22/23 08:31 09/22/23 08:31 09/22/23 08:31 Pain Score Most Recent Pain Score: Most Recent Pain Score Pain Level 0 09/22/23 08:31 Assessment Mental Status: Awake (Alert & Oriented to Patient Baseline) Airway and Respiratory Function: Patent airway with normal (patient baseline) respiratory exam Cardiovascular Function: Hemodynamically Stable Hydration Status: Adequately Hydrated Nausea & Vomiting: No Nausea or Vomiting Pain: Pt. Denies Any Pain Peripheral Nerve Block: Patient did not receive a nerve block
== END 2023-09-22 09:13 | disposition home or self-care (01) ==
LOC: SUR 06:09
PROVIDERS: PCP Nurse Practitioner Family; Visit Provider Surgery
PROC: 0DJD8ZZ Inspection of Lower Intestinal Tract, Via Natural or Artificial Opening Endoscopic (ICD-10-PCS; CPT 45378; principal; 2023-09-22 07:30)
DX: Z12.11 Encounter for screening for malignant neoplasm of colon (principal); Z80.0 Family history of malignant neoplasm of digestive organs; K64.8 Other hemorrhoids; K63.5 Polyp of colon
CPT/HCPCS: 45380; 88305; J2001; J2704

== ENCOUNTER 2023-12-11 01:25 | Outpatient (CLI) | payer MEDICARE, BC, SELFPAY ==
--- NOTE | 2023-12-11 07:30 | DI.DEXA_ITS ---
Exam(s) XR DEXA BONE DENSITY W/WO KANE EXAM: XR DEXA BONE DENSITY W/WO KANE CLINICAL HISTORY: screening for osteoporosis,menopausal disorder,n95.9 TECHNIQUE: COMPARISON: Comparison examination is 11/29/2004. FINDINGS: Lateral Spine Image: Unremarkable. No compression deformities identified. Left hip: Total T-Score: 0.0. This compares to -0.1 on the prior examination. Total Z-Score: 1.4 T- and Z-scores: Within normal limits. Note is made of osteopenia in the femoral neck with a T-score of -2.0. There is no evidence of osteoporosis. Lumbar Spine: Total T-Score: -2.1. This compares to -1.9 on the prior examination. Total Z-Score: -0.1 T- and Z-scores: Findings are consistent with osteopenia. Note is made of osteoporosis in the L4 brissa tebral body with a T-score of -2.7. IMPRESSION: Osteoporosis in the L4 vertebral body.
== END 2023-12-11 01:45 ==
PROVIDERS: PCP Nurse Practitioner Family; Visit Provider Nurse Practitioner Family
DX: N95.9 Unspecified menopausal and perimenopausal disorder (principal); Z13.820 Encounter for screening for osteoporosis; M81.0 Age-related osteoporosis without current pathological fracture
CPT/HCPCS: 36415; 77080; 80061; 83036

== ENCOUNTER 2024-06-07 00:45 | Outpatient (CLI) | payer MEDICARE, BC, SELFPAY ==
--- NOTE | 2024-06-07 11:45 | DI.MAMMO_ITS ---
Exam(s) MAMMO SCREENING EXAM: MAMMO SCREENING CLINICAL HISTORY: screening TECHNIQUE: Mammograms were interpreted according to the usual protocol including computer analysis w [employer] CAD system, tomosynthesis and C-view imaging. COMPARISON: 2014 through 2023 FINDINGS: The breasts are composed of scattered fibroglandular densities, Breast Density category B. No suspicious masses or suspicious microcalcifications are seen. No skin thickening or abnormal axillary lymph nodes are seen. There has been no significant change from prior exams. IMPRESSION: BI-RADS Category 1, Negative mammogram Yearly screening mammography is recommended. Breast Density - Category B, scattered fibroglandular densities. Breast density Category C or D implies that the patient has dense breast tissue. Dense breast tissue can make it harder to find cancer on a mammogram. Dense breast tissue is also associated with an incr eased risk of breast cancer. This information about the result of the mammogram report was provided to the patient to raise their awareness. Use this report when you speak with the patient about their risks for breast cancer, which includes their family history. At that time, you may recommend additional screening tests (Ultrasoun d or MRI) as these tests may add significant information. A negative radiographic report should not delay biopsy if a dominant or clinically suspicious mass is present. Up to ten percent of cancers are not identified on mammography. A negative report may reinforce clinical impression. Adenosis and dense breasts may obscure an underlying neoplasm. False positive reports average 6 to 10%. Patient will receive a letter notifying them of these results.
== END 2024-06-07 01:05 ==
LOC: DI 00:46
PROVIDERS: PCP Nurse Practitioner Family; Visit Provider Nurse Practitioner Women's Health
DX: Z12.31 Encounter for screening mammogram for malignant neoplasm of breast (principal); R92.323 Mammographic fibroglandular density, bilateral breasts
CPT/HCPCS: 77063; 77067